=== PATIENT | male | born 1945 | race Caucasian/White ===

== ENCOUNTER 2018-06-18 07:19 | Day surgery (SDC) | payer OTHER ==
[2018-06-18] MEDS ORDERED: INFLIXIMAB DYYB IV ONE (08:00)
[2018-06-18] MEDS ORDERED: NA CHLORIDE 0.9% IV ONE (08:00)
[2018-06-18] MEDS ORDERED: NA CHLORIDE 0.9% 250 ML ONE (08:03)
[2018-06-18 08:11] VITALS: BMI 29.6
[2018-06-18 10:10] VITALS: O2SAT 98
[2018-06-18 10:46] VITALS: BP 140/67; TEMP 98.6
== END 2018-06-18 10:45 | disposition home or self-care (01) ==
LOC: DS 07:19
PROVIDERS: ATTEND Internal Medicine Gastroenterology
DX: K50.911 Crohn's disease, unspecified, with rectal bleeding (principal)
CPT/HCPCS: 96365; 96366; Q5103

== ENCOUNTER 2018-08-11 07:22 | Day surgery (SDC) | payer OTHER ==
[2018-08-11] MEDS ORDERED: NA CHLORIDE 0.9% IV ONE (08:30)
[2018-08-11] MEDS ORDERED: INFLIXIMAB DYYB IV ONE (08:30)
[2018-08-11 08:43] VITALS: BP 145/67; TEMP 97.4; O2SAT 95; BMI 30.2
[2018-08-11] MEDS ORDERED: NA CHLORIDE 0.9% 250 ML ONE (09:04)
== END 2018-08-11 11:35 | disposition home or self-care (01) ==
LOC: DS 07:22
PROVIDERS: ATTEND Internal Medicine Gastroenterology
DX: K50.911 Crohn's disease, unspecified, with rectal bleeding (principal)
CPT/HCPCS: 96365; 96366; Q5103

== ENCOUNTER 2018-08-28 12:47 | Emergency (ER) | payer OTHER ==
[2018-08-28] MEDS ORDERED: ONDANSETRON 4 MG/2 ML VIAL ONE (13:10)
[2018-08-28] MEDS ORDERED: MORPHINE 4 MG/ML SYR ONE ×2 (13:10→14:35)
--- NOTE | 2018-08-28 14:28 | RAD REPORT ---
EXAM DESCRIPTION: RAD - Wrist Left 2 View - 08/28/2018 1:12 pm CLINICAL HISTORY: Left wrist pain status post injury FINDINGS: Limited 2 series obtained. Comminuted markedly displaced impacted fracture of the distal radius Cortical irregularity involves the pisiform which may indicate a fracture. Small bony density lies adjacent to scaphoid and trapezium which could represent small avulsion fract ure acute versus chronic
[2018-08-28] MEDS ORDERED: MORPHINE 2 MG/ML SYR ONE (14:35)
--- NOTE | 2018-08-28 15:14 | RAD REPORT ---
EXAM DESCRIPTION: RAD - Wrist Left 2 View - 08/28/2018 3:04 pm CLINICAL HISTORY: Radial fracture FINDINGS: Splint immobilizes previously described fractures of the left wrist
--- NOTE | 2018-08-28 15:51 | ER ---
Nurse's Notes [facility] Name: Felipe Ross Age: 72 yrs Sex: Male : 1945 Arrival Date: 08/28/2018 Time: 12:48 Bed 5 Private MD: Kenny Lora C Diagnosis: Left Distal radius, ulna communited closed fractures Presentation: 08/28 13:00 Presenting complaint: Patient states: fell from a standing position just prior to ss arrival. c/o L wrist pain. Obvious deformity noted. Care prior to arrival: None. Mechanism of Injury: Fall from standing position. Trauma event details: Injury occurred in the [facility], Injury occurred: at home. Injury occurred: August 28, 2018. 13:00 Acuity: SYDNEE 2 ss 13:00 Method Of Arrival: Wheelchair ss 13:14 Transition of care: patient was not received from another setting of care. Onset of jl7 symptoms was August 28, 2018. Risk Assessment: Do you want to hurt yourself or someone else? Patient reports no desire to harm self or others. Initial Sepsis Screen: Does the patient meet any 2 criteria? No. Patient's initial sepsis screen is negative. Does the patient have a suspected source of infection? No. Patient's initial sepsis screen is negative. Trauma Activation: Alert Physician: ED Physician; Name: ; Notified At: ; Arrived At: Physician: General Surgeon; Name: ; Notified At: ; Arrived At: Physician: Radiology; Name: ; Notified At: ; Arrived At: Physician: Respiratory; Name: ; Notified At: ; Arrived At: Physician: Lab; Name: ; Notified At: ; Arrived At: Historical: - Allergies: 13:19 Iodinated Contrast Media - IV Dye; jl7 - Home Meds: 13:19 acetaminophen-codeine 300-30 mg Oral tab every 4 hours [Active]; Actonel 150 mg Oral jl7 tab 1 tab once moly [Active]; Advair Diskus 250-50 mcg/dose Inhl dsdv 1 puff 2 times per day [Active]; azathioprine 50 mg Oral tab three times a day [Active]; benazepril 20 mg Oral tab 1 tab once daily [Active]; benazepril-hydrochlorothiazide 20-12.5 mg Oral tab 1 tab once daily [Active]; Colace 100 mg Oral cap [Active]; gabapentin 600 mg Oral tab twice a day [Active]; Lialda 1.2 gram Oral TbEC 2 tabs once daily [Active]; Remicade 100 mg intravenous solr every 8 wks [Active]; - PMHx: 13:19 Asthma; Atrial Fib; Chronic back/leg pain; herniated discs; Hypertension; Left atrium jl7 enlargement; Mitral Valve Regurgitation; - Immunization history:: Adult Immunizations up to date. - Social history:: Smoking status: Patient/guardian denies using tobacco. - Immunization history: Last tetanus immunization: < 5 years ago. - Ebola Screening: : No symptoms or risks identified at this time. Screenin:48 Abuse screen: Denies threats or abuse. Denies injuries from another. ss 13:12 Tuberculosis screening: No symptoms or risk factors identified. jl7 13:29 Nutritional screening: No deficits noted. Fall Risk IV access (20 points). Total Marsh jl7 Fall Scale indicates No Risk (0-24 pts). Primary Survey: 13:00 NO uncontrolled hemorrhage observed. A: The patient is alert. Airway: patent, No ss supplemental oxygen in use on arrival. Oral cavity: clear, Trachea midline. Breathing/Chest: Respiratory pattern: regular, Respiratory effort: spontaneous, unlabored, Breath sounds: clear, bilaterally. Chest inspection: symmetrical rise and fall of the chest. Circulation: Pulses: palpable right radial artery and left radial artery. Skin color: pink. Disability Alert. Exposure/Environment: There is no evidence of uncontrolled external bleeding. Obvious injury(ies) are noted at this time: L wrist. Obvious deformity. 13:12 Reassessment Breathing/Chest Respiratory pattern Regular Respiratory effort Spontaneous jl7 Unlabored Breath sounds Clear Chest inspection Symmetrical. Assessment: 13:00 General: Appears in no apparent distress. uncomfortable, Behavior is cooperative, jl7 appropriate for age, anxious, crying. Pain: Complains of pain in left wrist Pain currently is 10 out of 10 on a pain scale. Neuro: Level of Consciousness is awake, alert, obeys commands, Oriented to person, place, time, situation. EENT: No signs and/or symptoms were reported regarding the EENT system. Cardiovascular: Heart tones S1 S2 present Patient's skin is warm and dry. Respiratory: Airway is patent Respiratory effort is even, unlabored, Respiratory pattern is regular, symmetrical. GI: No signs and/or symptoms were reported involving the gastrointestinal system. : No signs and/or symptoms were reported regarding the genitourinary system. Derm: Skin is pink, warm \\T\\ dry. Musculoskeletal: Bony deformity noted of left wrist. 14:00 Reassessment: Patient appears in no apparent distress at this time. Patient and/or jl7 family updated on plan of care and expected duration. Pain level reassessed. Patient is alert, oriented x 3, equal unlabored respirations, skin warm/dry/pink. 14:47 Reassessment: Dr. Bocanegra at bedside to reduce dislocation/ fracture and place splint. ss 15:30 Reassessment: Patient appears in no apparent distress at this time. Patient and/or jl7 family updated on plan of care and expected duration. Pain level reassessed. Patient is alert, oriented x 3, equal unlabored respirations, skin warm/dry/pink. Reports decreased pain rated 3/10 at this time. Patient states feeling better. Vital Signs: 12:48 BP 116 / 84; Pulse 79; Resp 18; Pulse Ox 98% on R/A; Weight 121.56 kg; Height 6 ft. 8 ss in. (203.20 cm); Pain 10/10; 13:30 BP 143 / 78; Pulse 75; Resp 16 S; Pulse Ox 100% on R/A; jl7 14:30 BP 140 / 79; Pulse 74; Resp 16 S; Pulse Ox 100% on R/A; jl7 15:47 BP 150 / 84; Pulse 76; Resp 16 S; Pulse Ox 100% on R/A; jl7 12:48 Body Mass Index 29.44 (121.56 kg, 203.20 cm) [place] Coma Score: 12:48 Eye Response: spontaneous(4). Verbal Response: oriented(5). Motor Response: obeys ss commands(6). Total: 15. 13:30 Eye Response: spontaneous(4). Verbal Response: oriented(5). Motor Response: obeys jl7 commands(6). Total: 15. 14:30 Eye Response: spontaneous(4). Verbal Response: oriented(5). Motor Response: obeys jl7 commands(6). Total: 15. 15:47 Eye Response: spontaneous(4). Verbal Response: oriented(5). Motor Response: obeys jl7 commands(6). Total: 15. Trauma Score (Adult): 12:48 Eye Response: spontaneous(1); Verbal Response: oriented(1); Motor Response: obeys ss commands(2); Systolic BP: > 89 mm Hg(4); Respiratory Rate: 10 to 29 per min(4); [place] Score: 15; Trauma Score: 12 ED Course: 12:48 Patient arrived in ED. as 12:48 Kenny Lora MD is Private Physician. as 12:48 Patient has correct armband on for positive identification. Bed in low position. Call ss light in reach. 12:48 Patient maintains SpO2 saturation greater than 95% on room air. ss 12:51 Bereket Bocanegra MD is Attending Physician. kdr 13:00 chair and couch maker on. Pulse ox on. NIBP on. jl7 13:00 Inserted saline lock: 22 gauge in right antecubital area, using aseptic technique. jl7 13:02 Triage completed. ss 13:04 Shelton Zapata RN is Primary Nurse. jl7 13:12 Wrist Left 2 View In Process Unspecified. EDMS 13:12 Thermoregulation: warm blanket given to patient. jl7 13:19 Arm band placed on right wrist. jl7 15:01 Wrist Left (2 View) XRAY In Process Unspecified. EDMS 15:48 Leobardo Pierson MD is Referral Physician. kdr 16:04 No provider procedures requiring assistance completed. IV discontinued, intact, jl7 bleeding controlled, No redness/swelling at site. Pressure dressing applied. Administered Medications: 13:04 Drug: morphine 4 mg Route: IVP; Site: right antecubital; jl7 13:30 Follow up: Response: No adverse reaction; Pain is decreased jl7 13:04 Drug: Zofran 4 mg Route: IVP; Site: right antecubital; jl7 13:30 Follow up: Response: No adverse reaction jl7 13:32 Not Given (pt reports "I had a tetanus shot less than 5 years ago."): jl7 Tetanus-Diphtheria Toxoid Adult 0.5 ml IM once 14:30 Drug: morphine 4 mg Route: IVP; Site: right antecubital; jl7 14:35 Follow up: Response: No adverse reaction; Pain is decreased jl7 14:45 Drug: morphine 4 mg Route: IVP; Site: right antecubital; jl7 15:46 Follow up: Response: No adverse reaction; Pain is decreased jl7 15:50 Drug: [place] 10 mg-325 mg 1 tabs Route: PO; jl7 16:03 Follow up: Response: Medication administered at discharge. jl7 Intake: 16:04 PO: 0ml; Total: 0ml. jl7 Output: 16:04 Urine: 0ml; Total: 0ml. jl7 Outcome: 15:50 Discharge ordered by . ace 16:03 Discharged to home ambulatory, with family. jl7 16:03 Condition: stable 16:03 Patient's length of stay was not longer than 2 hours. 16:05 Discharge instructions given to patient, family, Instructed on discharge instructions, jl7 follow up and referral plans. medication usage, Demonstrated understanding of instructions, follow-up care, medications, Prescriptions given X 1. 16:05 Patient left the ED. jl7 Signatures: Dispatcher [employer] EDMS Bereket Bocanegra MD MD kdr Martinez, Amelia as Smirch, Shelby, KWAN BOWENS Shelton Zapata RN RN jl7
--- NOTE | 2018-08-28 15:51 | EDPHYS ---
Physician Documentation [facility] Name: Felipe Ross Age: 72 yrs Sex: Male : 1945 Arrival Date: 08/28/2018 Time: 12:48 Bed 5 Private MD: Kenny Lora C ED Physician Bereket Bocanegra HPI: 08/28 15:43 This 72 yrs old Male presents to ER via Wheelchair with complaints of Fall kdr Injury. 15:43 Details of fall: The patient fell from an upright position, while walking. Onset: The kdr symptoms/episode began/occurred acutely, suddenly, just prior to arrival. Associated injuries: The patient sustained left wrist, decreased range of motion, hematoma, painful injury, swelling. Severity of symptoms: At their worst the symptoms were moderate, in the emergency department the symptoms are unchanged. The patient has not experienced similar symptoms in the past. The patient has not recently seen a physician. The patient tripped and fell on left outstretched arm. No other injuries. Historical: - Allergies: 13:19 Iodinated Contrast Media - IV Dye; jl7 - Home Meds: 13:19 acetaminophen-codeine 300-30 mg Oral tab every 4 hours [Active]; Actonel 150 mg Oral jl7 tab 1 tab once moly [Active]; Advair Diskus 250-50 mcg/dose Inhl dsdv 1 puff 2 times per day [Active]; azathioprine 50 mg Oral tab three times a day [Active]; benazepril 20 mg Oral tab 1 tab once daily [Active]; benazepril-hydrochlorothiazide 20-12.5 mg Oral tab 1 tab once daily [Active]; Colace 100 mg Oral cap [Active]; gabapentin 600 mg Oral tab twice a day [Active]; Lialda 1.2 gram Oral TbEC 2 tabs once daily [Active]; Remicade 100 mg intravenous solr every 8 wks [Active]; - PMHx: 13:19 Asthma; Atrial Fib; Chronic back/leg pain; herniated discs; Hypertension; Left atrium jl7 enlargement; Mitral Valve Regurgitation; - Immunization history:: Adult Immunizations up to date. - Social history:: Smoking status: Patient/guardian denies using tobacco. - Immunization history: Last tetanus immunization: < 5 years ago. - Ebola Screening: : No symptoms or risks identified at this time. ROS: 15:43 Constitutional: Negative for fever, chills, and weight loss. kdr 15:43 MS/extremity: Positive for injury or acute deformity, decreased range of motion, pain, swelling, tenderness, Negative for abrasion, laceration. Exam: 15:43 Constitutional: This is a well developed, well nourished patient who is awake, alert, kdr and in no acute distress. Head/Face: Normocephalic, atraumatic. Eyes: Pupils equal round and reactive to light, extra-ocular motions intact. Lids and lashes normal. Conjunctiva and sclera are non-icteric and not injected. Cornea within normal limits. Periorbital areas with no swelling, redness, or edema. Chest/axilla: Normal chest wall appearance and motion. Nontender with no deformity. No lesions are appreciated. Cardiovascular: Regular rate and rhythm with a normal S1 and S2. No gallops, murmurs, or rubs. Normal PMI, no JVD. No pulse deficits. 15:43 Musculoskeletal/extremity: Extremities: grossly normal except: noted in the left wrist: decreased ROM, pain, swelling, tenderness, mild dorsal angulation, Circulation is intact in all extremities. Sensation intact. Vital Signs: 12:48 BP 116 / 84; Pulse 79; Resp 18; Pulse Ox 98% on R/A; Weight 121.56 kg; Height 6 ft. 8 ss in. (203.20 cm); Pain 10/10; 13:30 BP 143 / 78; Pulse 75; Resp 16 S; Pulse Ox 100% on R/A; jl7 14:30 BP 140 / 79; Pulse 74; Resp 16 S; Pulse Ox 100% on R/A; jl7 15:47 BP 150 / 84; Pulse 76; Resp 16 S; Pulse Ox 100% on R/A; jl7 12:48 Body Mass Index 29.44 (121.56 kg, 203.20 cm) [place] Coma Score: 12:48 Eye Response: spontaneous(4). Verbal Response: oriented(5). Motor Response: obeys commands(6). Total: 15. 13:30 Eye Response: spontaneous(4). Verbal Response: oriented(5). Motor Response: obeys jl7 commands(6). Total: 15. 14:30 Eye Response: spontaneous(4). Verbal Response: oriented(5). Motor Response: obeys jl7 commands(6). Total: 15. 15:47 Eye Response: spontaneous(4). Verbal Response: oriented(5). Motor Response: obeys jl7 commands(6). Total: 15. Trauma Score (Adult): 12:48 Eye Response: spontaneous(1); Verbal Response: oriented(1); Motor Response: obeys ss commands(2); Systolic BP: > 89 mm Hg(4); Respiratory Rate: 10 to 29 per min(4); [place] Score: 15; Trauma Score: 12 Procedures: 15:43 Splinting: Splint applied to dorsal aspect of left forearm, left wrist and palmar kdr aspect of left forearm using Orthoglass splint, sling, applied by myself. post reduction film - reveals improved alignment, Examined by me, post splint application: neurovascular intact, 2+ distal pulses palpable, brisk capillary refill noted, Patient tolerated well, Sugar tong splint. MDM: 15:43 Data reviewed: vital signs, nurses notes, radiologic studies. Counseling: I had a kdr detailed discussion with the patient and/or guardian regarding: the historical points, exam findings, and any diagnostic results supporting the discharge/admit diagnosis, radiology results, the need for outpatient follow up. Physician consultation: Leobardo Pierson MD and will see patient in office, Make best reduction, splint and follow-up. 15:50 Patient medically screened. [facility] 08/28 13:12 Order name: Wrist Left 2 View; Complete Time: 14:52 EDGA 08/28 14:52 Order name: Wrist Left (2 View) XRAY; Complete Time: 15:42 kdr 08/28 12:56 Order name: Sugar Tong Forearm Splint; Complete Time: 15:44 kdr Administered Medications: 13:04 Drug: morphine 4 mg Route: IVP; Site: right antecubital; jl7 13:30 Follow up: Response: No adverse reaction; Pain is decreased jl7 13:04 Drug: Zofran 4 mg Route: IVP; Site: right antecubital; jl7 13:30 Follow up: Response: No adverse reaction jl7 13:32 Not Given (pt reports "I had a tetanus shot less than 5 years ago."): jl7 Tetanus-Diphtheria Toxoid Adult 0.5 ml IM once 14:30 Drug: morphine 4 mg Route: IVP; Site: right antecubital; jl7 14:35 Follow up: Response: No adverse reaction; Pain is decreased jl7 14:45 Drug: morphine 4 mg Route: IVP; Site: right antecubital; jl7 15:46 Follow up: Response: No adverse reaction; Pain is decreased jl7 15:50 Drug: [place] 10 mg-325 mg 1 tabs Route: PO; jl7 16:03 Follow up: Response: Medication administered at discharge. 7 Disposition: 08/28/18 15:50 Discharged to Home. Impression: Left Distal radius, ulna communited closed fractures. - Condition is Stable. - Discharge Instructions: Wrist Fracture Treated With Immobilization, [id number]. - Prescriptions for Tylenol- Codeine #3 300-30 mg Oral Tablet - take 2 tablets by ORAL route every 6 hours As needed; 30 tablet. - Medication Reconciliation Form, Thank You Letter, Prescription Opioid Use form. - Follow up: Leobardo Pierson MD; When: 2 - 3 days; Reason: Further diagnostic work-up, Recheck today's complaints, Continuance of care, Re-evaluation by your physician. - Problem is new. - Symptoms have improved. Signatures: Dispatcher [employer] [facility] Bereket Bocanegra MD MD kdr Leal, Jahala, RN RN jl7 Corrections: (The following items were deleted from the chart) 13:12 12:57 Wrist Left 3 View+RAD.[id number].BRZ ordered. [facility] 16:05 15:50 08/28/2018 15:50 Discharged to Home. Impression: Left Distal radius, ulna jl7 communited closed fractures. Condition is Stable. Forms are Medication Reconciliation Form, Thank You Letter, Antibiotic Education, Prescription Opioid Use. Follow up: Leobardo Pierson; When: 2 - 3 days; Reason: Further diagnostic work-up, Recheck today's complaints, Continuance of care, Re-evaluation by your physician. Problem is new. Symptoms have improved. kdr
[2018-08-28] MEDS ORDERED: HYDROCODONE/APAP 10/325 TAB ONE (16:00)
[2018-08-28 16:17] VITALS: O2SAT 100
[2018-08-28 16:19] VITALS: BP 150/84
== END 2018-08-28 16:05 | disposition home or self-care (01) ==
LOC: ER 12:47
PROC: 2W3DX1Z Immobilization of Left Lower Arm using Splint (ICD-10-PCS; principal; 2018-08-28)
DX: S52.592A Other fractures of lower end of left radius, initial encounter for closed fracture (principal); S52.252A Displaced comminuted fracture of shaft of ulna, left arm, initial encounter for closed fracture; W01.0XXA Fall on same level from slipping, tripping and stumbling without subsequent striking against object, initial encounter; Y93.01 Activity, walking, marching and hiking; M25.532 Pain in left wrist; J45.909 Unspecified asthma, uncomplicated; I48.91 Unspecified atrial fibrillation; I10 Essential (primary) hypertension
CPT/HCPCS: 73100 ×2; 96375; 96374; 99285; 29125; J2270; J2405

== ENCOUNTER 2018-09-26 07:27 | Day surgery (SDC) | payer OTHER ==
--- OUTSIDE RECORDS SUMMARY | 2018-09-26 07:28 | XMS REPORT ---
:1945 [facility] Address [address] [place] [address] Dr. Bateman [address] [place] [id number] Care Team Providers Name Role Phone Unavailable Unavailable Unavailable Problems This patient has no known problems. Allergies, Adverse Reactions, Alerts This patient has no known allergies or adverse reactions. Medications This patient has no known medications.
[2018-09-26] MEDS ORDERED: NA CHLORIDE 0.9% IV ONE (08:00)
[2018-09-26] MEDS ORDERED: INFLIXIMAB DYYB IV ONE (08:00)
[2018-09-26 08:36] VITALS: BMI 29.6
[2018-09-26 13:27] VITALS: BP 142/55; TEMP 97.8; O2SAT 95
== END 2018-09-26 10:45 | disposition home or self-care (01) ==
LOC: DS 07:27
PROVIDERS: ATTEND Internal Medicine Gastroenterology
DX: K50.911 Crohn's disease, unspecified, with rectal bleeding (principal)
CPT/HCPCS: 96365; 96366; Q5103

== ENCOUNTER 2018-11-13 19:13 | Emergency (ER) | payer OTHER ==
--- OUTSIDE RECORDS SUMMARY | 2018-11-13 19:15 | XMS REPORT ---
:1945 [facility] [address] [place] [address] Dr. Bateman [address] [place] [id number] Care Team Providers Name Role Phone Unavailable Unavailable Unavailable Problems This patient has no known problems. Allergies, Adverse Reactions, Alerts This patient has no known allergies or adverse reactions. Medications This patient has no known medications.
[2018-11-13 20:26] LABS: Absolute Lymphocytes (CBC) 2.3 K/uL (0.7-4.9); Absolute Monocytes 0.8 K/uL (0.1-1.3); Absolute Neutrophil 3.9 K/uL (1.8-8.0); Basophils % 0.6 % (0-1.3); Eosinophils % 4.6 % (0-4.4); Hematocrit 34.9 % (39.6-49.0); Lymphocytes % 31.5 % (15.3-44.8); MPV 7.9 fL (7.6-11.3); Monocytes % 10.2 % (3.3-12.3); RBC Red Blood Cell Count 3.62 M/uL (4.33-5.43)
[2018-11-13 20:35] LABS: ALT/SGPT 34 U/L (12-78); AST/SGOT 28 U/L (15-37); Albumin 3.6 g/dL (3.4-5.0); Alkaline Phosphatase 67 U/L (45-117); BUN Blood Urea Nitrogen 24 mg/dL (7-18); Bicarbonate 27 mmol/L (21-32); Bilirubin Direct < 0.1 mg/dL (0-0.2); Bilirubin Total 0.3 mg/dL (0.2-1.0); Glucose Level 98 mg/dL (74-106); Magnesium 2.4 mg/dL (1.8-2.4); NT PRO-BNP 183 pg/mL (<125); Potassium 3.6 mmol/L (3.5-5.1); Protein, Total 7.3 g/dL (6.4-8.2); Sodium Level 142 mmol/L (136-145); Troponin (Emerg Dept Use Only) < 0.02 ng/mL (0.0-0.045)
--- NOTE | 2018-11-13 20:44 | RAD REPORT ---
EXAM DESCRIPTION: RAD - Chest Single View - 11/13/2018 8:34 pm CLINICAL HISTORY: CHEST PAIN Chest pain. COMPARISON: Chest Pa And Lat (2 Views) dated 06/11/2018; Chest Single View dated 11/07/2016; Chest Pa An d Lat (2 Views) dated 11/05/2016; CHEST PA AND LAT 2 VIEW dated 04/07/2013 FINDINGS: Portable technique limits examination quality. Emphysematous changes are present with mildly elevated left hemidiaphragm. The heart is normal in siz e. Tortuous thoracic aorta. IMPRESSION: Prominent COPD.
[2018-11-13 20:46] LABS: Protime INR 0.92
--- NOTE | 2018-11-14 00:25 | ER ---
Nurse's Notes [facility] Name: Felipe Ross Age: 73 yrs Sex: Male : 1945 Arrival Date: 11/13/2018 Time: 19:18 Bed 30 Private MD: Kenny Lora C Diagnosis: Chest pain, unspecified Presentation: 11/13 19:30 Presenting complaint: Patient states: "I started to have a sharp chest pain mostly on cc3 the right side at 1830H tonight while watching television. I also feel a lump on my central chest area. I've been having this intermittent chest pain since 3-4 weeks now. Currently, I don't feel pain". Transition of care: patient was not received from another setting of care. Onset of symptoms was November 13, 2018. Risk Assessment: Do you want to hurt yourself or someone else? Patient reports no desire to harm self or others. Initial Sepsis Screen: Does the patient meet any 2 criteria? No. Patient's initial sepsis screen is negative. Does the patient have a suspected source of infection? No. Patient's initial sepsis screen is negative. Care prior to arrival: None. 19:30 Method Of Arrival: Wheelchair cc3 19:30 Acuity: SYDNEE 3 cc3 Triage Assessment: 19:30 General: Appears in no apparent distress. comfortable, Behavior is calm, cooperative, cc3 appropriate for age. Pain: Complains of pain in right side chest pain Pain currently is 0 out of 10 on a pain scale. Quality of pain is described as sharp, Pain began 1 hour ago. EENT: No signs and/or symptoms were reported regarding the EENT system. Neuro: Level of Consciousness is awake, alert, obeys commands, Oriented to person, place, time, situation, Appropriate for age. Cardiovascular: Reports chest pain, since 1830H tonight Patient's skin is warm and dry. Respiratory: Airway is patent Respiratory effort is even, unlabored, Respiratory pattern is regular, symmetrical. GI: Abdomen is round non-distended. : No signs and/or symptoms were reported regarding the genitourinary system. Derm: Skin is intact, is healthy with good turgor, Skin is pink, warm \\T\\ dry. normal. Musculoskeletal: Swelling present in left wrist. Historical: - Allergies: 19:30 Iodinated Contrast Media - IV Dye; cc3 - Home Meds: 19:30 acetaminophen-codeine 300-30 mg Oral tab every 4 hours [Active]; Actonel 150 mg Oral cc3 tab 1 tab once moly [Active]; Advair Diskus 250-50 mcg/dose Inhl dsdv 1 puff 2 times per day [Active]; azathioprine 50 mg Oral tab three times a day [Active]; benazepril 20 mg Oral tab 1 tab once daily [Active]; benazepril-hydrochlorothiazide 20-12.5 mg Oral tab 1 tab once daily [Active]; Colace 100 mg Oral cap [Active]; gabapentin 600 mg Oral tab twice a day [Active]; Lialda 1.2 gram Oral TbEC 2 tabs once daily [Active]; Remicade 100 mg intravenous solr every 8 wks [Active]; - PMHx: 19:30 Asthma; Atrial Fib; Chronic back/leg pain; herniated discs; Hypertension; Left atrium cc3 enlargement; Mitral Valve Regurgitation; - Immunization history:: Adult Immunizations up to date. - Social history:: Smoking status: Patient/guardian denies using tobacco, never smoked. - Ebola Screening: : No symptoms or risks identified at this time. Screenin:30 Abuse screen: Denies threats or abuse. Denies injuries from another. Nutritional cc3 screening: No deficits noted. Tuberculosis screening: No symptoms or risk factors identified. Fall Risk Ambulatory Aid- None/Bed Rest/Nurse Assist (0 pts). Gait- Normal/Bed Rest/Wheelchair (0 pts) Mental Status- Oriented to own ability (0 pts). Assessment: 19:30 Pain: Pain does not radiate. cc3 19:30 General: see triage assessment. cc3 20:18 Reassessment: Patient appears in no apparent distress at this time. Patient and/or cc3 family updated on plan of care and expected duration. Pain level reassessed. Patient is alert, oriented x 3, equal unlabored respirations, skin warm/dry/pink. 21:05 Reassessment: Patient appears in no apparent distress at this time. Patient and/or cc3 family updated on plan of care and expected duration. Pain level reassessed. Patient is alert, oriented x 3, equal unlabored respirations, skin warm/dry/pink. Patient taken to CT department by live truck technician Daryl. 21:26 Reassessment: Patient appears in no apparent distress at this time. Patient and/or cc3 family updated on plan of care and expected duration. Pain level reassessed. Patient is alert, oriented x 3, equal unlabored respirations, skin warm/dry/pink. Patient came back from CT scan department, awaiting result. 22:18 Reassessment: Patient appears in no apparent distress at this time. Patient and/or cc3 family updated on plan of care and expected duration. Pain level reassessed. Patient is alert, oriented x 3, equal unlabored respirations, skin warm/dry/pink. 23:25 Reassessment: Patient appears in no apparent distress at this time. Patient and/or cc3 family updated on plan of care and expected duration. Pain level reassessed. Patient is alert, oriented x 3, equal unlabored respirations, skin warm/dry/pink. 11/14 00:10 Reassessment: Patient appears in no apparent distress at this time. Patient is alert, ca1 oriented x 3, equal unlabored respirations, skin warm/dry/pink. Repeat Trop drawn and sent to Lab. Vital Signs: 11/13 19:30 BP 154 / 76; Pulse 65; Resp 18 S; Temp 98.3(O); Pulse Ox 99% on R/A; Weight 124.74 kg cc3 (R); Height 6 ft. 8 in. (203.20 cm) (R); Pain 0/10; 20:30 BP 149 / 77; Pulse 56; Resp 18 S; Pulse Ox 99% on R/A; cc3 21:23 BP 139 / 82; Pulse 63; Resp 18 S; Pulse Ox 98% on R/A; cc3 22:15 BP 136 / 74; Pulse 54; Resp 17 S; Pulse Ox 96% on R/A; cc3 23:45 BP 140 / 82; Pulse 62; Resp 19 S; Pulse Ox 97% on R/A; cc3 11/14 00:21 BP 150 / 81; Pulse 53; Resp 16 S; Temp 98(O); Pulse Ox 98% on R/A; ca1 11/13 19:30 Body Mass Index 30.21 (124.74 kg, 203.20 cm) [facility] ED Course: 11/13 19:18 Patient arrived in ED. am2 19:18 Lora, A, MD is Private Physician. am2 19:30 Arm band placed on right wrist. Patient notified of wait time. EKG completed in triage. cc3 Results shown to MD. 19:33 Shannan Garcia is Primary Nurse. cc3 19:38 Triage completed. cc3 19:39 Estevan James MD is Attending Physician. gs 19:41 No provider procedures requiring assistance completed. Inserted saline lock: 20 gauge ca1 in right antecubital area, using aseptic technique. Blood collected. Patient maintains SpO2 saturation greater than 95% on room air. 19:42 Patient has correct armband on for positive identification. Placed in gown. Bed in low ca1 position. Call light in reach. Side rails up X 1. bus driver/monitor on. Pulse ox on. NIBP on. Warm blanket given. 20:34 XRAY Chest (1 view) In Process Unspecified. EDMS 21:28 CT Chest Wo Con In Process Unspecified. EDMS 11/14 00:00 Report given to KWAN Conley. cc3 00:10 Yael Gomez RN is Primary Nurse. ca1 00:22 Aniket Morales MD is Referral Physician. gs 00:31 IV discontinued, intact, bleeding controlled, No redness/swelling at site. Pressure ca1 dressing applied. Administered Medications: No medications were administered Outcome: 00:22 Discharge ordered by . gs 00:31 Discharged to home ambulatory, with significant other. ca1 00:31 Condition: stable 00:31 Discharge instructions given to patient, Instructed on discharge instructions, follow up and referral plans. Demonstrated understanding of instructions, follow-up care. 00:31 Patient left the ED. ca1 Signatures: Dispatcher [employer] EDAZ Krystal Pham am2 Estevan James MD MD Shannan Garcia cc3 Yael Gomez, KWAN RN ca1 Corrections: (The following items were deleted from the chart) 11/13 19:40 19:30 BP 154 / 76; Pulse 65bpm; Resp 18bpm; Spontaneous; Pulse Ox 99% RA; Temp 98.3F cc3 Oral; 124.74 kg Reported; Height 6 ft. 8 in. Reported; BMI: 30.2; cc3 19:41 19:30 Presenting complaint: Patient states: "I started to have a sharp chest pain cc3 mostly on the right side at 1830H tonight while watching television. I also feel a lump on my central chest area. I've been having this intermittent chest pain since 3-4 weeks now" cc3
--- NOTE | 2018-11-14 00:26 | EDPHYS ---
Physician Documentation [facility] Name: Felipe Ross Age: 73 yrs Sex: Male : 1945 Arrival Date: 11/13/2018 Time: 19:18 Bed 30 Private MD: Kenny Lora C ED Physician Estevan James HPI: 11/14 00:49 This 73 yrs old Male presents to ER via Wheelchair with complaints of Chest gs Pain > 30 y/o. 00:49 The patient or guardian reports chest pain that is located primarily in the anterior gs chest wall, right. Onset: yesterday. Associated signs and symptoms: Pertinent negatives: abdominal pain, diaphoresis, dizziness, shortness of breath. The chest pain is described as a heaviness. Duration: The patient or guardian reports a single episode, that is still ongoing, but improving. Duration: The patient or guardian reports multiple episodes, that wax and wane, with no pattern, the episodes last approximately 15 minute(s). Modifying factors: The symptoms are alleviated by nothing. the symptoms are aggravated by nothing. Severity of pain: At its worst the pain was moderate in the emergency department the pain has improved markedly. The patient has experienced similar episodes in the past, a few times, and the symptoms today are exactly the same, started about a month ago. Historical: - Allergies: 11/13 19:30 Iodinated Contrast Media - IV Dye; cc3 - Home Meds: 19:30 acetaminophen-codeine 300-30 mg Oral tab every 4 hours [Active]; Actonel 150 mg Oral cc3 tab 1 tab once moly [Active]; Advair Diskus 250-50 mcg/dose Inhl dsdv 1 puff 2 times per day [Active]; azathioprine 50 mg Oral tab three times a day [Active]; benazepril 20 mg Oral tab 1 tab once daily [Active]; benazepril-hydrochlorothiazide 20-12.5 mg Oral tab 1 tab once daily [Active]; Colace 100 mg Oral cap [Active]; gabapentin 600 mg Oral tab twice a day [Active]; Lialda 1.2 gram Oral TbEC 2 tabs once daily [Active]; Remicade 100 mg intravenous solr every 8 wks [Active]; - PMHx: 19:30 Asthma; Atrial Fib; Chronic back/leg pain; herniated discs; Hypertension; Left atrium cc3 enlargement; Mitral Valve Regurgitation; - Immunization history:: Adult Immunizations up to date. - Social history:: Smoking status: Patient/guardian denies using tobacco, never smoked. - Ebola Screening: : No symptoms or risks identified at this time. ROS: 11/14 00:49 All other systems are negative. gs Exam: 00:49 Head/Face: Normocephalic, atraumatic. Eyes: Pupils equal round and reactive to light, gs extra-ocular motions intact. Lids and lashes normal. Conjunctiva and sclera are non-icteric and not injected. Cornea within normal limits. Periorbital areas with no swelling, redness, or edema. ENT: Nares patent. No nasal discharge, no septal abnormalities noted. Tympanic membranes are normal and external auditory canals are clear. Oropharynx with no redness, swelling, or masses, exudates, or evidence of obstruction, uvula midline. Mucous membranes moist. Neck: Trachea midline, no thyromegaly or masses palpated, and no cervical lymphadenopathy. Supple, full range of motion without nuchal rigidity, or vertebral point tenderness. No Meningismus. Chest/axilla: Normal chest wall appearance and motion. Nontender with no deformity. No lesions are appreciated. Respiratory: Lungs have equal breath sounds bilaterally, clear to auscultation and percussion. No rales, rhonchi or wheezes noted. No increased work of breathing, no retractions or nasal flaring. Abdomen/GI: Soft, non-tender, with normal bowel sounds. No distension or tympany. No guarding or rebound. No evidence of tenderness throughout. Back: No spinal tenderness. No costovertebral tenderness. Full range of motion. Skin: Warm, dry with normal turgor. Normal color with no rashes, no lesions, and no evidence of cellulitis. MS/ Extremity: Pulses equal, no cyanosis. Neurovascular intact. Full, normal range of motion. Neuro: Awake and alert, GCS 15, oriented to person, place, time, and situation. Cranial nerves II-XII grossly intact. Motor strength 5/5 in all extremities. Sensory grossly intact. Cerebellar exam normal. Normal gait. 00:49 Constitutional: The patient appears alert, awake. 00:49 Cardiovascular: Rate: normal, Rhythm: regular, Pulses: no pulse deficits are appreciated, Edema: 2+ edema to level of left midcalf, left ankle, right midcalf and right ankle. 00:49 ECG was reviewed by the Attending Physician. Vital Signs: 11/13 19:30 BP 154 / 76; Pulse 65; Resp 18 S; Temp 98.3(O); Pulse Ox 99% on R/A; Weight 124.74 kg cc3 (R); Height 6 ft. 8 in. (203.20 cm) (R); Pain 0/10; 20:30 BP 149 / 77; Pulse 56; Resp 18 S; Pulse Ox 99% on R/A; cc3 21:23 BP 139 / 82; Pulse 63; Resp 18 S; Pulse Ox 98% on R/A; cc3 22:15 BP 136 / 74; Pulse 54; Resp 17 S; Pulse Ox 96% on R/A; cc3 23:45 BP 140 / 82; Pulse 62; Resp 19 S; Pulse Ox 97% on R/A; cc3 11/14 00:21 BP 150 / 81; Pulse 53; Resp 16 S; Temp 98(O); Pulse Ox 98% on R/A; ca1 11/13 19:30 Body Mass Index 30.21 (124.74 kg, 203.20 cm) cc3 MDM: 11/13 19:56 Patient medically screened. 11/14 00:49 Differential diagnosis: abnormal EKG, acute myocardial infarction, chest wall pain, gs thoracic aortic disection. Data reviewed: vital signs, nurses notes, lab test result(s), EKG, radiologic studies. Counseling: I had a detailed discussion with the patient and/or guardian regarding: the historical points, exam findings, and any diagnostic results supporting the discharge/admit diagnosis, lab results, radiology results, the need for outpatient follow up. Response to treatment: the patient's symptoms have resolved after treatment, the patient's pain is gone. 11/13 19:57 Order name: Basic Metabolic Panel; Complete Time: 20:51 11/13 19:57 Order name: CBC with Diff; Complete Time: 20:51 11/13 19:57 Order name: LFT's; Complete Time: 20:51 11/13 19:57 Order name: Magnesium; Complete Time: 20:51 11/13 19:57 Order name: NT PRO-BNP; Complete Time: 20:51 11/13 19:57 Order name: PT-INR; Complete Time: 20:51 11/13 19:57 Order name: Troponin (emerg Dept Use Only); Complete Time: 20:51 11/13 19:57 Order name: XRAY Chest (1 view); Complete Time: 20:51 11/13 19:57 Order name: EKG; Complete Time: 20:00 11/13 19:57 Order name: Cardiac monitoring; Complete Time: 20:05 11/13 19:57 Order name: EKG - Nurse/Tech; Complete Time: 20:05 11/13 19:57 Order name: IV Saline Lock; Complete Time: 20:05 11/13 20:53 Order name: CT Chest Wo Con 11/13 22:42 Order name: Troponin (emerg Dept Use Only) 11/13 19:57 Order name: Labs collected and sent; Complete Time: 20:05 11/13 19:57 Order name: O2 Per Protocol; Complete Time: 20:06 11/13 19:57 Order name: O2 Sat Monitoring; Complete Time: 20:06 EC:49 Rate is 64 beats/min. Rhythm is regular. NE interval is prolonged. QRS interval is gs normal. QT interval is normal. T waves are Normal. No ST changes noted. Clinical impression: Abnormal EKG without significant change. Interpreted by me. Administered Medications: No medications were administered Disposition: 11/14/18 00:22 Discharged to Home. Impression: Chest pain, unspecified. - Condition is Stable. - Discharge Instructions: Nonspecific Chest Pain. - Medication Reconciliation Form, Thank You Letter, Antibiotic Education, Prescription Opioid Use form. - Follow up: Private Physician; When: 1 - 2 days; Reason: Re-evaluation by your physician. Follow up: Aniket Morales MD; When: 2 - 3 days; Reason: Re-evaluation by your physician. Signatures: Dispatcher [employer] Estevan Underwood MD MD gs Cordel, Charlene cc3 Yael Gomez RN RN ca1 Corrections: (The following items were deleted from the chart) 00:31 00:22 11/14/2018 00:22 Discharged to Home. Impression: Chest pain, unspecified. ca1 Condition is Stable. Forms are Medication Reconciliation Form, Thank You Letter, Antibiotic Education, Prescription Opioid Use. Follow up: Private Physician; When: 1 - 2 days; Reason: Re-evaluation by your physician. Follow up: Aniket Morales; When: 2 - 3 days; Reason: Re-evaluation by your physician. gs
[2018-11-14 03:02] VITALS: BP 150/81; TEMP 98; O2SAT 98
--- NOTE | 2018-11-14 08:03 | EKG ---
Test Date: 2018-11-13 Test Time: 19:28:09 [employer] Cord: RAMESH MEASUREMENT RESULTS: Intervals: Rate: 64 MD: 238 QRSD: 90 QT: 412 QTc: 425 Valdez: P: 90 MD: 238 QRS: 53 T: 52 INTERPRETIVE STATEMENTS: Sinus rhythm with 1st degree AV block Otherwise normal ECG Compared to ECG 03/12/2017 23:10:23 Sinus bradycardia no longer present Right bundle-branch block no longer present Electronically Signed On 11-14-18 08:02:42 CDT by Aniket Morales
--- NOTE | 2018-11-14 09:03 | RAD REPORT ---
EXAM DESCRIPTION: CT - Thorax Wo Felix - 11/14/2018 2:52 am CLINICAL HISTORY: 73 years old and is Male; PAIN TECHNIQUE: Axial computed tomography images of the chest without intravenous contrast. Sagittal an d coronal reformatted images were created and reviewed. This CT exam was performed using one or mor e of the following dose reduction techniques: automated exposure control, adjustment of the mA and/ or kV according to patient size, and/or use of iterative reconstruction technique. COMPARISON: No relevant prior studies available. FINDINGS: Limitations: None. Lungs: There is a 4 mm groundglass nodule in the left upper lobe. There is a 5 mm noncalcified p ulmonary nodule in the right lower lobe. There is mild dependent atelectasis in both lower lobes left greater than right. Pleural space: Unremarkable. No pneumothorax. No significant effusion. Heart: Unremarkable. No cardiomegaly. No significant pericardial effusion. Bones/joints: Old left rib fractures. Degenerative changes present in the spine. Soft tissues: Unremarkable. Vasculature: Unremarkable. No thoracic aortic aneurysm. Lymph nodes: Unremarkable. No enlarged lymph nodes. Adrenals: Low-density 1.6 x 1.8 cm right adrenal nodule. Left appears normal. Kidneys and ureters: Small left parapelvic renal cysts noted. Stomach and bowel: Hyperdense material in the stomach presumably ingested contents. IMPRESSION: 1. Mild dependent atelectasis. 2. 5 mm right lower lobe pulmonary nodule and 4 mm left upper lobe groundglass pulmonary nodule. ACR White Paper guidelines (MacMahon, et al. Radiology 2017; 284(1):228-43) suggest the following. For low-risk patients, no follow-up is necessary. For high-risk patients (smoking history or other known risk factors) an optional chest CT at 12 months could be performed. 3. Low density right adrenal nodule. ACR White Paper guidelines (Farrah, et al. JACR 2010; 7(10) :755-22) suggest follow-up abdominal CT or MR in 12 months. Alternatively, if there is a history of malignancy, consider further evaluation with PET, unenhanced abdominal CT or MR. Electronically signed by: Elizabeth Alarcon MD 11/13/2018 9:43 PM CDT Due to temporary technical issues with the PACS/Fluency reporting system, reports are being signed by the in house radiologist as a courtesy to ensure prompt reporting. The interpreting radiologist is f ully responsible for the content of the report.
== END 2018-11-14 00:31 | disposition home or self-care (01) ==
LOC: ER 19:13
DX: R07.9 Chest pain, unspecified (principal); I10 Essential (primary) hypertension; I48.91 Unspecified atrial fibrillation; Z91.041 Radiographic dye allergy status
CPT/HCPCS: 36415; 71045; 71250; 80048; 80076; 83735; 83880; 84484; 85025; 85610; 93005; 99285

== ENCOUNTER 2018-11-20 08:54 | Day surgery (SDC) | payer OTHER ==
[2018-11-20] MEDS ORDERED: INFLIXIMAB DYYB IV ONE (09:00)
[2018-11-20] MEDS ORDERED: NA CHLORIDE 0.9% IV ONE (09:00)
--- OUTSIDE RECORDS SUMMARY | 2018-11-20 09:00 | XMS REPORT ---
:1945 [facility] Address [address] [place] [address] Dr. Bateman [address] [place] [id number] Care Team Providers Name Role Phone Unavailable Unavailable Unavailable Problems This patient has no known problems. Allergies, Adverse Reactions, Alerts This patient has no known allergies or adverse reactions. Medications This patient has no known medications.
[2018-11-20 13:50] VITALS: BP 118/56; TEMP 98.1; O2SAT 96
[2018-11-20 14:19] VITALS: BMI 34.3
== END 2018-11-20 11:59 | disposition home or self-care (01) ==
LOC: DS 08:54
PROVIDERS: ATTEND Internal Medicine Gastroenterology
DX: K50.911 Crohn's disease, unspecified, with rectal bleeding (principal)
CPT/HCPCS: 96365; 96366; Q5103

== ENCOUNTER 2019-01-27 07:50 | Day surgery (SDC) | payer OTHER ==
[2019-01-27] MEDS ORDERED: ACETAMINOPHEN 325 MG TABLET ONE (07:58)
[2019-01-27] MEDS ORDERED: DIPHENHYDRAMINE 25 MG TAB/CAP ONE (07:58)
[2019-01-27] MEDS ORDERED: INFLIXIMAB DYYB IV ONE (08:00)
[2019-01-27] MEDS ORDERED: NA CHLORIDE 0.9% IV ONE (08:00)
[2019-01-27] MEDS ORDERED: NA CHLORIDE 0.9% 250 ML ONE (08:10)
[2019-01-27 09:11] VITALS: BMI 29.1
[2019-01-27 11:26] VITALS: BP 139/72; TEMP 98.9; O2SAT 97
== END 2019-01-27 11:20 | disposition home or self-care (01) ==
LOC: DS 07:50
PROVIDERS: ATTEND Internal Medicine Gastroenterology
DX: K50.90 Crohn's disease, unspecified, without complications (principal)
CPT/HCPCS: 96365; 96366; Q5103

== ENCOUNTER 2019-03-26 08:16 | Day surgery (SDC) | payer OTHER ==
[2019-03-26] MEDS ORDERED: INFLIXIMAB DYYB IV ONE (09:00)
[2019-03-26] MEDS ORDERED: NA CHLORIDE 0.9% IV ONE (09:00)
[2019-03-26 09:36] VITALS: BMI 29.1
[2019-03-26 11:07] VITALS: BP 129/65; TEMP 97.5; O2SAT 98
== END 2019-03-26 11:11 | disposition home or self-care (01) ==
LOC: DS 08:16
PROVIDERS: ATTEND Internal Medicine Gastroenterology
DX: K50.911 Crohn's disease, unspecified, with rectal bleeding (principal)
CPT/HCPCS: 96365; 96366; Q5103; J7030

== ENCOUNTER 2019-05-20 07:47 | Day surgery (SDC) | payer OTHER ==
--- OUTSIDE RECORDS SUMMARY | 2019-05-20 07:53 | XMS REPORT ---
:1945 [facility] Address [address] [place] [address] Dr. Bateman [address] [place] [id number] Care Team Providers Name Role Phone Unavailable Unavailable Unavailable Problems This patient has no known problems. Allergies, Adverse Reactions, Alerts This patient has no known allergies or adverse reactions. Medications This patient has no known medications.
[2019-05-20] MEDS ORDERED: INFLIXIMAB DYYB IV ONE (08:00)
[2019-05-20] MEDS ORDERED: NA CHLORIDE 0.9% IV ONE (08:00)
[2019-05-20] MEDS ORDERED: NA CHLORIDE 0.9% 250 ML ONE (08:08)
[2019-05-20 10:43] VITALS: TEMP 97.1
[2019-05-20 15:29] VITALS: BMI 27.4
[2019-05-20 15:32] VITALS: BP 138/74; O2SAT 98
== END 2019-05-20 11:30 | disposition home or self-care (01) ==
LOC: DS 07:47
PROVIDERS: ATTEND Internal Medicine Gastroenterology
DX: K50.911 Crohn's disease, unspecified, with rectal bleeding (principal)
CPT/HCPCS: 96365; 96366; Q5103; J7030 ×2

== ENCOUNTER 2019-07-03 08:52 | Day surgery (SDC) | payer OTHER ==
--- OUTSIDE RECORDS SUMMARY | 2019-07-03 08:54 | XMS REPORT ---
:1945 [facility] Address [address] [place] [address] Dr. Bateman [address] [place] [id number] Care Team Providers Name Role Phone Unavailable Unavailable Unavailable Problems This patient has no known problems. Allergies, Adverse Reactions, Alerts This patient has no known allergies or adverse reactions. Medications This patient has no known medications.
[2019-07-03] MEDS ORDERED: INFLIXIMAB DYYB IV ONE (09:00)
[2019-07-03] MEDS ORDERED: NA CHLORIDE 0.9% IV ONE (09:00)
[2019-07-03] MEDS ORDERED: NA CHLORIDE 0.9% 250 ML ONE (09:06)
[2019-07-03 13:19] VITALS: BMI 34.3
[2019-07-03 13:34] VITALS: BP 115/79; TEMP 97.6; O2SAT 98
== END 2019-07-03 12:38 | disposition home or self-care (01) ==
LOC: DS 08:52
PROVIDERS: ATTEND Internal Medicine Gastroenterology
DX: K50.911 Crohn's disease, unspecified, with rectal bleeding (principal)
CPT/HCPCS: 96365; 96366; Q5103; J7030 ×2

== ENCOUNTER 2019-09-25 08:45 | Day surgery (SDC) | payer OTHER ==
--- OUTSIDE RECORDS SUMMARY | 2019-09-25 09:12 | XMS REPORT ---
:1945 Author Organization [facility] t Address [facility] Bateman [address] [place] [address] Care Team Providers Name Role Phone Unavailable Unavailable Unavailable Problems This patient has no known problems. Allergies, Adverse Reactions, Alerts This patient has no known allergies or adverse reactions. Medications This patient has no known medications.
[2019-09-25] MEDS ORDERED: NA CHLORIDE 0.9% IV ONE (09:15)
[2019-09-25] MEDS ORDERED: INFLIXIMAB DYYB IV ONE (09:15)
[2019-09-25 09:22] VITALS: BMI 29.6
[2019-09-25] MEDS ORDERED: NA CHLORIDE 0.9% 250 ML ONE (09:29)
[2019-09-25 12:03] VITALS: O2SAT 98
[2019-09-25 12:05] VITALS: BP 136/71; TEMP 98.2
== END 2019-09-25 12:13 | disposition home or self-care (01) ==
LOC: DS 08:45
PROVIDERS: ATTEND Internal Medicine Gastroenterology
DX: K50.911 Crohn's disease, unspecified, with rectal bleeding (principal)
CPT/HCPCS: 96365; 96366; Q5103; J7030 ×2

== ENCOUNTER 2019-11-30 08:23 | Day surgery (SDC) | payer OTHER ==
[2019-11-30] MEDS ORDERED: NA CHLORIDE 0.9% 500 ML ONE (08:39)
[2019-11-30] MEDS ORDERED: NA CHLORIDE 0.9% IV ONE (09:00)
[2019-11-30] MEDS ORDERED: INFLIXIMAB DYYB IV ONE (09:00)
[2019-11-30 09:07] VITALS: BMI 29.2
--- OUTSIDE RECORDS SUMMARY | 2019-11-30 11:44 | XMS REPORT | Continuity of Care Document ---
:1945 Author Organization [facility] t Address [address] [place] [address] Care Team Providers Name Role Phone Unavailable Unavailable Unavailable Problems This patient has no known problems. Allergies, Adverse Reactions, Alerts This patient has no known allergies or adverse reactions. Medications This patient has no known medications. Procedures This patient has no known procedures. Results This patient has no known results.
[2019-11-30 13:41] VITALS: BP 154/78; O2SAT 98
[2019-11-30 13:46] VITALS: TEMP 97.6
== END 2019-11-30 11:40 | disposition home or self-care (01) ==
LOC: DS 08:23
PROVIDERS: ATTEND Internal Medicine Gastroenterology
DX: K50.911 Crohn's disease, unspecified, with rectal bleeding (principal)
CPT/HCPCS: 96365; 96366; Q5103; J7030; J7040

== ENCOUNTER 2020-02-01 08:26 | Day surgery (SDC) | payer OTHER ==
[2020-02-01] MEDS ORDERED: INFLIXIMAB DYYB IV ONE (09:00)
[2020-02-01] MEDS ORDERED: NA CHLORIDE 0.9% IV ONE (09:00)
--- OUTSIDE RECORDS SUMMARY | 2020-02-01 09:18 | XMS REPORT | Continuity of Care Document ---
:1945 Author Organization [facility] t Address [address] [place] [address] Care Team Providers Name Role Phone Unavailable Unavailable Unavailable Problems This patient has no known problems. Allergies, Adverse Reactions, Alerts This patient has no known allergies or adverse reactions. Medications This patient has no known medications. Procedures This patient has no known procedures. Results This patient has no known results.
[2020-02-01 09:38] VITALS: BMI 29.2
[2020-02-01 11:07] VITALS: TEMP 97.4
[2020-02-01 11:08] VITALS: BP 134/69; O2SAT 98
== END 2020-02-01 12:15 | disposition home or self-care (01) ==
LOC: DS 08:26
PROVIDERS: ATTEND Internal Medicine Gastroenterology
DX: K50.911 Crohn's disease, unspecified, with rectal bleeding (principal)
CPT/HCPCS: 96365; 96366; Q5103; J7050

== ENCOUNTER 2020-03-25 10:00 | Day surgery (SDC) | payer OTHER ==
--- OUTSIDE RECORDS SUMMARY | 2020-03-25 10:03 | XMS REPORT | Continuity of Care Document ---
:1945 Author Organization [facility] t Address [address] [place] [address] Care Team Providers Name Role Phone Unavailable Unavailable Unavailable Problems This patient has no known problems. Allergies, Adverse Reactions, Alerts This patient has no known allergies or adverse reactions. Medications This patient has no known medications. Procedures This patient has no known procedures. Results This patient has no known results.
[2020-03-25] MEDS ORDERED: INFLIXIMAB DYYB IV ONE (10:15)
[2020-03-25] MEDS ORDERED: NA CHLORIDE 0.9% IV ONE (10:15)
[2020-03-25] MEDS ORDERED: NA CHLORIDE 0.9% 500 ML ONE (10:53)
[2020-03-25 14:23] VITALS: BMI 27.2
[2020-03-25 14:38] VITALS: BP 145/84; TEMP 99; O2SAT 99
== END 2020-03-25 13:40 | disposition home or self-care (01) ==
LOC: DS 10:00
PROVIDERS: ATTEND Internal Medicine Gastroenterology
DX: K50.911 Crohn's disease, unspecified, with rectal bleeding (principal)
CPT/HCPCS: 96365; 96366; Q5103; J7050; J7040

== ENCOUNTER 2020-05-24 08:47 | Day surgery (SDC) | payer OTHER ==
[2020-05-24] MEDS ORDERED: INFLIXIMAB DYYB IV ONE (09:00)
[2020-05-24] MEDS ORDERED: NA CHLORIDE 0.9% IV ONE (09:00)
[2020-05-24] MEDS ORDERED: NA CHLORIDE 0.9% 250 ML ONE (09:12)
[2020-05-24 09:31] VITALS: BMI 30.7
[2020-05-24 16:22] VITALS: BP 148/86; TEMP 97.5; O2SAT 98
== END 2020-05-24 13:11 | disposition home or self-care (01) ==
LOC: DS 08:47
PROVIDERS: ATTEND Internal Medicine Gastroenterology
DX: K50.911 Crohn's disease, unspecified, with rectal bleeding (principal)
CPT/HCPCS: 96365; 96366; Q5103; J7050 ×2

== ENCOUNTER 2020-08-01 17:17 | Inpatient (IN) | payer OTHER ==
--- OUTSIDE RECORDS SUMMARY | 2020-08-01 17:21 | XMS REPORT | Continuity of Care Document ---
:1945 Author Organization [facility] t Address [address] [place] [address] Care Team Providers Name Role Phone Unavailable Unavailable Unavailable Problems This patient has no known problems. Allergies, Adverse Reactions, Alerts This patient has no known allergies or adverse reactions. Medications This patient has no known medications. Procedures This patient has no known procedures. Results This patient has no known results.
--- NOTE | 2020-08-01 18:07 | RAD REPORT ---
EXAM DESCRIPTION: RAD - Chest Pa And Lat (2 Views) - 08/01/2020 6:01 pm CLINICAL HISTORY: [place] Chest pain. COMPARISON: Chest Single View dated 11/13/2018; Chest Pa And Lat (2 Views) dated 06/11/2018; Chest Sing le View dated 11/07/2016; Chest Pa And Lat (2 Views) dated 11/05/2016 TECHNIQUE: PA and lateral views of the chest were obtained. FINDINGS: The lungs are hyperexpanded compatible with COPD. The heart is mildly enlarged in size. No fracture or aggressive bony process. IMPRESSION: COPD without acute process identified.
[2020-08-01 18:37] LABS: Absolute Lymphocytes (CBC) 2.1 K/uL (0.7-4.9); Basophils % 0.5 % (0-1.3); Hematocrit 41.8 % (39.6-49.0); Lymphocytes % 21.8 % (15.3-44.8); MPV 8.3 fL (7.6-11.3); RBC Red Blood Cell Count 4.39 M/uL (4.33-5.43)
[2020-08-01 18:55] LABS: ALT/SGPT 108 U/L (12-78); AST/SGOT 58 U/L (15-37); Albumin 3.4 g/dL (3.4-5.0); Alkaline Phosphatase 90 U/L (45-117); BUN Blood Urea Nitrogen 29 mg/dL (7-18); Bicarbonate 26 mmol/L (21-32); Bilirubin Total 0.9 mg/dL (0.2-1.0); Creatine Phosphokinase 91 U/L (39-308); Glucose Level 138 mg/dL (74-106); Magnesium 2.4 mg/dL (1.8-2.4); NT PRO-BNP 12327 pg/mL (<125); Potassium 4.2 mmol/L (3.5-5.1); Protein, Total 6.8 g/dL (6.4-8.2); Sodium Level 140 mmol/L (136-145); Troponin I < 0.02 ng/mL (0.0-0.045)
[2020-08-01] MEDS ORDERED: ASPIRIN 325 MG TAB PO ONE (19:00)
--- NOTE | 2020-08-01 19:32 | ER ---
Nurse's Notes [facility] Name: Felipe Ross Age: 74 yrs Sex: Male : 1945 Arrival Date: 08/01/2020 Time: 17:20 Bed Direct Admit Private MD: Diagnosis: Chest pain, unspecified Presentation: 08/01 17:38 Chief complaint: Patient states: Direct Admit from Dr. Lora. Pending Covid-19 test ca1 result. Coronavirus screen: Client denies travel out of the [place] in the last 14 days. shortness of breath, Client presents with at least one sign or symptom that may indicate coronavirus-19. Standard/surgical mask placed on the client. Provider contacted for isolation considerations. Ebola Screen: Patient negative for fever greater than or equal to 101.5 degrees Fahrenheit, and additional compatible Ebola Virus Disease symptoms Patient denies exposure to infectious person. Patient denies travel to an Ebola-affected area in the 21 days before illness onset. No symptoms or risks identified at this time. Initial Sepsis Screen: Does the patient meet any 2 criteria? No. Patient's initial sepsis screen is negative. Does the patient have a suspected source of infection? No. Patient's initial sepsis screen is negative. Risk Assessment: Do you want to hurt yourself or someone else? Patient reports no desire to harm self or others. Onset of symptoms was August 01, 2020. 17:38 Acuity: SYDNEE 3 ca1 17:38 Method Of Arrival: Wheelchair ca1 Historical: - Allergies: 17:40 Iodinated Contrast Media - IV Dye; ca1 - Home Meds: 17:46 Advair Diskus 250-50 mcg/dose Inhl dsdv 1 puff 2 times per day [Active]; benazepril 20 ca1 mg Oral tab 1 tab once daily [Active]; benazepril-hydrochlorothiazide 20-12.5 mg Oral tab 1 tab once daily [Active]; calcium citrate 500 mg plus Vit D 500 IU Oral tab daily [Active]; Centrum Silver oral oral [Active]; mesalamine oral DR 400 mg oral 1 cap 2 times per day [Active]; omeprazole 20 mg Oral cpDR 1 cap once daily [Active]; Vitamin C 500 mg Oral tab twice a day [Active]; risedronate 150 mg oral tab 1 tab once moly [Active]; acetaminophen-codeine 300-30 mg Oral tab every 4 hours [Active]; Claritin-D 12 Hour 5-120 mg Oral Tb12 [Active]; Zyrtec 10 mg Oral tab 1 tab once daily [Active]; Remicade 100 mg intravenous solr every 8 wks [Active]; ProAir HFA 90 mcg/actuation inhalation HFAA [Active]; - PMHx: 17:40 Asthma; Atrial Fib; Chronic back/leg pain; herniated discs; Hypertension; Left atrium ca1 enlargement; Mitral Valve Regurgitation; - Immunization history:: Adult Immunizations up to date, Flu vaccine is up to date. - Social history:: Smoking status: Patient denies any tobacco usage or history of. Screenin:52 Abuse screen: Denies threats or abuse. Nutritional screening: No deficits noted. ll2 Tuberculosis screening: No symptoms or risk factors identified. Fall Risk None identified. Vital Signs: 17:38 BP 135 / 95; Pulse 72; Resp 18 S; Temp 97.1(TE); Pulse Ox 96% on R/A; Weight 128.82 kg ca1 (R); Height 6 ft. 8 in. (203.20 cm) (R); 17:38 Body Mass Index 31.20 (128.82 kg, 203.20 cm) ca1 ED Course: 17:20 Patient arrived in ED. ds1 17:39 Triage completed. ca1 17:40 Arm band placed on right wrist. ca1 19:30 Mando Lora MD is Hospitalizing Provider. 19:52 Patient has correct armband on for positive identification. Pulse ox on. NIBP on. ll2 19:52 No provider procedures requiring assistance completed. Patient admitted, IV remains in ll2 place. Administered Medications: No medications were administered Outcome: 19:31 Decision to Hospitalize by Provider. dw 19:52 Admitted to Med/surg accompanied by tech, via wheelchair, Report called to [facility] nj ll2 19:52 Condition: stable 19:52 Instructed on the need for admit. 19:54 Patient left the ED. ll2 Signatures: Alesha Moss RN RN Jhoana Ward ds1 Yael Gomez RN RN ca1 Radha Galarza RN RN ll2
[2020-08-01] MEDS ORDERED: FUROSEMIDE 20 MG/ 2ML VIAL IV ONE (20:07)
[2020-08-01] MEDS: Enoxaparin 120 MG/0.8 ML SYR SQ SCH (21:00)
[2020-08-01] MEDS ORDERED: ALBUTEROL INHALER 60 PUFF/8 GM IH PRN (22:08)
--- NOTE | 2020-08-02 04:56 | HP ---
Date of Admission: 08/01/2020 Chief Complaint: Shortness of breath and chest pain. History Of Present Illness: This is a 74-year-old male patient, who came into our office today with his with complaints of chest pain and shortness of breath. The patient was evaluated via TeleVi sit 1 week ago and at that time, he informed me that he was having cough, congestion, coughing up gurpreet e clear to brown mucus. He also reported having some shortness of breath with activity and this prob william with shortness of breath has been increasingly getting worse. He was advised to take prednisone tapering dose for 9 days and he has a couple of more days of prednisone treatment left and was also g ike Cruz, and he was advised to come see me today for followup visit, so we can discuss more detail s about this presenting complaints. Today, when he came into office, he informed me that he has seen minimal improvement in his symptoms. He continues to have this chest pressure type of feeling and t hat only happens when he does any day-to-day activity including just walking across the room, he has chest pressure type of feeling. At the same time with any activity, he also gets extremely short of breath and he has to sit down and this was noted today at the office. Taking 5-10 steps in the exam room, he was extremely short of breath. He takes him minute to 2 minutes to alleviate his symptoms a fter he rests. The patient says that his symptoms have been getting worse for last 2 months, but alt ogether his symptoms are going on for last few months, but lot worse in last 2 months. After I evalu ated him, he was admitted to the hospital for further evaluation and management of this problem. Allergies: IODINE CAUSING ANAPHYLACTIC REACTION. Medications: Tylenol with codeine as needed, albuterol inhaler 2 puffs every 4 hours as needed for s hortness of breath, benazepril 20 mg daily, benazepril/HCTZ 20/12.5 one tablet daily, Advair 250/50 o ne puff 2 times a day, Remicade infusion, mesalamine 400 mg dose, omeprazole 20 mg daily, and Actonel 150 mg once a month. Review of Systems: Cardiovascular: As mentioned above. Respiratory: As mentioned above. All other systems reviewed and negative. Past Medical History: Impaired fasting glucose, mild persistent asthma, hypertension, hyperlipidemia , paroxysmal atrial fibrillation, gastroesophageal reflux disease, Crohn disease, diverticulosis, ost eoporosis. Past Surgical History: Sinus surgery, tonsillectomy, back surgery, radius and ulna fracture surgery on the left forearm. Family History: Father had lung cancer and prostate cancer. Mother had heart disease and hypertensi on. Brother with diabetes. Social History: Negative for smoking or alcohol use. Physical Examination: Vital Signs: When I saw him at office, weight 284 pounds, respiratory rate 16, temperature 97.3, pul se rate was 80 beats per minute, and blood pressure 165/78. General: Awake, alert, oriented, not in distress. HEENT: Head atraumatic, normocephalic. Conjunctivae nonerythematous. Sclerae white. Mouth, no thr ush or edema noted. Ears/Nose, no mass, lesion, discharge noted. Neck: Supple. No JVD, lymph nodes, bruit, thyromegaly noted. Lungs: Bilateral good equal air entry. Clear to auscultation. No rhonchi. No rales. Heart: Normal heart sounds. No murmur or gallop. Abdomen: Soft. Bowel sounds normal. No guarding, rigidity, tenderness, mass, hepatosplenomegaly, d istention, or bruit noted. Extremities: No leg edema. No calf tenderness. Skin: No rash, ulcer, cellulitis. Lymphatics: No lymph node enlargement in neck, supraclavicular, infraclavicular region. Neuro: No focal neurological deficit. Chest: Unremarkable. External Genitalia: Deferred. Rectal: Deferred. Laboratory Data: Sodium 140, potassium 4.2, chloride 104, bicarb 26, BUN 29, creatinine 1.40, glucos e 138, AST 58, ALT 108, alkaline phosphatase 90. Total CPK 91. Troponin less than 0.02. ProBNP 12, 327. TSH 3.98. D-dimer 717. White count 9.8, hemoglobin 13.4, platelets 249. COVID-19 test negati ve. Chest x-ray shows changes of COPD, otherwise unremarkable. Impression: 1.Unstable angina. 2.Acute kidney injury. 3.Hypertension. 4.Hyperlipidemia. 5.Impaired fasting glucose. 6.Paroxysmal atrial fibrillation. 7.Mild persistent asthma. 8.Gastroesophageal reflux disease. 9.Diverticulosis. 10.Crohn disease. 11.Osteoporosis. Plan: We will admit the patient to hospital for further evaluation and management of this problem. The patient is appropriate for inpatient and is expected to spend 2 midnights in hospital. We will c ontinue his home medications per order. His previous creatinine was 1.1 and this was on March 15, 2020 and prior to that in September 2019, it was also 1.1. We will go ahead and give him some IV fluid o vernight, and we will repeat blood work tomorrow morning. Aspirin 325 mg p.o. x1 dose was given upon admission and we will start him on Lovenox 120 mg subcutaneous injection every 12 hours. We will co nsult front desk representative and electrical engineer, and I have discussed details with both of this specialist. Our concern is unstable angina and after looking at his other test results, we need to rule out any unde rlying possibility of pulmonary embolism or other pulmonary etiology like pulmonary hypertension, etc . Tomorrow, we will have an echo with Doppler and I will repeat blood work tomorrow morning. The pa tient will need further cardiac testing. Ideally, one should consider doing cardiac catheterization and details were discussed with the patient and his at office. I will see him tomorrow for jefe crowley ACA/MODL Voice ID: [id number]
[2020-08-02] MEDS: PANTOPRAZOLE 40MG TABLET PO SCH (06:10)
[2020-08-02] MEDS: Enoxaparin 120 MG/0.8 ML SYR SQ SCH ×2 (09:00→20:58)
[2020-08-02] MEDS ORDERED: hydroCHLOROthiazide 12.5 MG CAP PO SCH (09:00)
[2020-08-02] MEDS ORDERED: BENAZEPRIL 20 MG TAB PO SCH (09:00)
[2020-08-02] MEDS ORDERED: SOTALOL HCL 80 MG TAB PO SCH (09:00)
[2020-08-02] MEDS: DULERA 100/5 (MOMETASONE/FORMOTEROL) INHALER IH SCH ×2 (09:00→20:54)
--- NOTE | 2020-08-02 10:09 | RAD REPORT ---
EXAM DESCRIPTION: NM - Vent Perfusion VQ Scan - 08/02/2020 9:51 am CLINICAL HISTORY: Shortness of breath COMPARISON: 2017 CT scan and chest x-ray August 01, 2020 TECHNIQUE: 20.3 Mci Xe133 was administered by inhalation. First breath, equilibrium, and washout images of the lungs obtained 7.7 millicuries Technetium-99 MAA was administered intravenously. Anterior, posterior, lateral and ob lique views of the lungs were taken. FINDINGS: The lungs demonstrate relatively homogeneous radiotracer activity on ventilation and perfu yasmany sequences. No mismatched segmental or lobar perfusion defects are seen. IMPRESSION: No evidence of a pulmonary embolus
--- NOTE | 2020-08-02 12:17 | P.CNS ---
Date of Consult: 08/02/20 Reason for Consult: Shortness of breath Chief Complaint: Shortness of breath History of Present Illness: Patient is 74 years of age is been complaining of dyspnea on mild exertion is become progressively worse over the past 2 months also has lower extremity edema for quite some time animal exertion causes severe respiratory distress no evidence of pulmonary emboli Allergies Iodinated Contrast Media [Iodinated Contrast Media - IV Dye] Allergy (Severe, Verified 05/24/20 09:32) Anaphylaxis adhesive tape Allergy (Verified 05/24/20 09:32) erythema Home Medications: Calcium Carbonate/Vitamin D3 [Calcium 500 + Vit D 400 Tablet] 1 tab PO BID 03/19/14 Diphenhydramine [Benadryl*] 25 mg PO PRN 04/19/17 Fluticasone/Salmeterol [Advair 250-50 Diskus] 1 diskus IH BID 03/26/19 Mesalamine [Delzicol] 1 cap PO BID 07/03/19 Omeprazole 1 tab PO DAILY 07/03/19 - Past Medical/Surgical History Diabetic: No -: asthma -: herniated disc -: Atrial fib -: HTN -: left atrium enlargment -: chronic back/leg pain -: Crohn's disease -: right knee sx -: 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) -: bilateral breast benign cyst removal, - Family History Mother Medical History: Other (see notes) Notes: mom in heart attack Father Medical History: Cancer - Social History Smoking Status: Never smoker Alcohol use: No Review of Systems 10-point ROS is otherwise unremarkable General: Weakness Respiratory: Shortness of Breath Cardiovascular: Edema Physical Examination Temp Pulse Resp BP Pulse Ox 97.0 F 104 H 18 120/88 95 08/02/20 08:00 08/02/20 09:04 08/02/20 08:00 08/02/20 09:04 08/02/20 08:00 General: Alert, Oriented x3 HEENT: Atraumatic Neck: Supple Respiratory: Clear to auscultation bilaterally, Diminished Cardiovascular: Normal S1 S2, Other (Jugular venous pressure is elevated), Edema (3+ edema) Gastrointestinal: Normal bowel sounds, Soft and benign Musculoskeletal: No clubbing - Problems (1) Shortness of breath Current Visit: Yes Status: Acute Plan: Patient is 74 years of age admitted with progressive dyspnea on mild exertion for the past 2 months he is at chronic lower extremity edema chest x-ray shows diminished lung volume with cephalization his venous pressure appears to be elevated renal function is slightly worse CBC normal liver function tests are also abnormal V/Q scan no evidence of pulmonary embolus saturation is 98% on room air await 2D echo continue with low-dose diuretic clinically he has heart failure patient is on hydrochlorothiazide patient is in AFib patient has severe global hypokinesis on the echo
--- NOTE | 2020-08-02 12:29 | EKG ---
Test Date: 2020-08-01 Test Time: 18:12:14 Dive Master: JONNY MEASUREMENT RESULTS: Intervals: Rate: 113 MO: QRSD: 140 QT: 376 QTc: 515 [place]: P: MO: QRS: -6 T: 92 INTERPRETIVE STATEMENTS: Atrial fibrillation with rapid ventricular response Left bundle branch block Abnormal ECG Compared to ECG 11/13/2018 19:28:09 Left bundle-branch block now present Sinus rhythm no longer present First degree AV block no longer present Electronically Signed On 08-02-20 12:27:46 MEDICAL DOCTOR MD by Alfredito Mayorga
--- NOTE | 2020-08-02 13:50 | RAD REPORT ---
EXAM DESCRIPTION: USExtrem Venous W Compress Bil08/02/2020 12:12 pm CLINICAL HISTORY: Leg pain COMPARISON: 2017 FINDINGS: The common femoral, superficial femoral, popliteal and posterior tibial veins bilaterally are compressible and demonstrate augmentation. Doppler demonstrates good flow. 4.3 centimeter right Jeffries's cyst IMPRESSION: No evidence of deep venous thrombosis involving either lower extremity.
--- NOTE | 2020-08-02 14:00 | ECHO ---
HEIGHT: 6 ft 8 in WEIGHT: 284 lb 0 oz DATE OF STUDY: 08/02/[address]: Hao Ma MD 2-DIMENSIONAL: YES M.MODE: YES DOPPLER: YES COLOR FLOW: YES TDS: PORTABLE: DEFINITY: BUBBLE STUDY: DIAGNOSIS: SHORTNESS OF BREATH CARDIAC HISTORY: CATHERIZATION: SURGERY: PROSTHETIC VALVE: PACEMAKER: MEASUREMENTS (cm) DIASTOLIC (NORMALS) SYSTOLIC (NORMALS) IVSd 1.0 (0.6-1.2) LA Diam 5.3 (1.9-4.0) LVEF 13% LVIDd 5.1 (3.5-5.7) LVIDs 4.8 (2.0-3.5) %FS 6% LVPWd 1.0 (0.6-1.2) Ao Diam 3.6 (2.0-3.7) 2 DIMENSIONAL ASSESSMENT: RIGHT ATRIUM: NORMAL LEFT ATRIUM: DILATED RIGHT VENTRICLE: NORMAL LEFT VENTRICLE: NORMAL SIZE TRICUSPID VALVE: NORMAL MITRAL VALVE: NORMAL PULMONIC VALVE: NORMAL AORTIC VALVE: NORMAL PERICARDIAL EFFUSION: NONE AORTIC ROOT: NORMAL LEFT VENTRICULAR WALL MOTION: SEVERE GLOBAL HYPOKINESIS DOPPLER/COLOR FLOW: MILD TRICUSPID REGURGITATION. MILD PULMONARY HYPERTENSION. COMMENTS: SEVERE GLOBAL HYPOKINESIS - EJECTION FRACTION 13-15%. LEFT ATRIAL ENLARGEMENT. MILD PULMONARY HYPERTENSION. RIGHT VENTRICULAR SYSTOLIC PRESSURE 44mmHg. TECHNOLOGIST: IRINA PATRICK
[2020-08-02] MEDS ORDERED: FUROSEMIDE 20 MG/ 2ML VIAL IV ONE (16:55)
[2020-08-02 20:12] LABS: Magnesium 2.3 mg/dL (1.8-2.4); Potassium 3.9 mmol/L (3.5-5.1)
[2020-08-02] MEDS: carvediloL 3.125 MG TAB PO SCH (20:55)
[2020-08-02] MEDS: SACUBITRIL/VALSARTAN 24/26 MG TAB PO SCH (20:55)
[2020-08-02] MEDS ORDERED: FUROSEMIDE 40 MG/4 ML VIAL IV ONE (21:00)
[2020-08-02] MEDS ORDERED: POTASSIUM CL SA 10 MEQ TAB PO ONE (21:00)
[2020-08-03 01:04] VITALS: O2SAT 95
[2020-08-03] MEDS: PANTOPRAZOLE 40MG TABLET PO SCH (05:32)
[2020-08-03] MEDS: carvediloL 3.125 MG TAB PO SCH ×2 (05:32→20:51)
[2020-08-03 05:37] LABS: Basophils % 0.7 % (0-1.3); Hematocrit 38.9 % (39.6-49.0); Lymphocytes % 33.7 % (15.3-44.8); MPV 8.1 fL (7.6-11.3); RBC Red Blood Cell Count 4.21 M/uL (4.33-5.43)
[2020-08-03 05:53] LABS: Magnesium 2.1 mg/dL (1.8-2.4); Potassium 3.3 mmol/L (3.5-5.1)
[2020-08-03 06:24] VITALS: BMI 28.7
--- NOTE | 2020-08-03 06:39 | PN ---
Date of Progress Note: 08/02/2020 Subjective: The patient was seen for followup this morning. No new complaints or problems reported by him except reported having some shortness of breath at nighttime while he was lying down flat in t he bed and he had to raise his head up. The patient reports having such problem lately at home also for few nights prior to this hospital admission. Objective: Vital Signs: Reviewed. HEENT: Unremarkable. Lungs: Clear to auscultation. Heart: Sounds normal. Abdomen: Soft. Bowel sounds normal. No guarding, rigidity, tenderness, or distention. Extremities: No leg edema. Laboratory Data: Echocardiogram findings reviewed. The patient has severe hypokinesis with ejection fraction 13%. Impression: 1.Unstable angina. 2.Cardiomyopathy, dilated. 3.Congestive heart failure, acute, systolic. 4.Hypertension. 5.Atrial fibrillation. Plan: The patient was noted to have atrial fibrillation upon admission, as well as currently on tele metry monitor and he was started on sotalol 80 mg 2 times a day. Details were discussed with cardiol ogist. After we received his echocardiogram result during the course of day today, we decided to dis continue sotalol, which was initiated this morning and the patient has received 1 dose of sotalol but now considering this extremely low ejection fraction as per my discussion with senior hydrogeologist we will discontinue sotalol, start him on carvedilol and Entresto. His benazepril and hydrochlorothiazide th at he takes at home will be discontinued. He received 1 dose of Lasix 20 mg IV yesterday evening. A nother dose of 20 mg IV was given this afternoon. During evening hours today, I did talk to patient and patient's , both were available on the phone and details about echocardiogram findings discus sed with them. I have also discussed details with Dr. Mayorga, who is planning to do heart catheteri zation tomorrow. Repeat chem 7 done this evening, creatinine is slightly better this evening compare d to yesterday and we will give another dose of 40 mg Lasix IV. We will continue Lovenox. The patie nt will need to rule out triple-vessel coronary artery disease and once we have cardiac cath results tomorrow, we will determine further plan of action. The patient had a brief episode of nonsustained ventricular tachycardia on monitoring coordinator and this is unfortunately expected with his severely low ejection fraction and I have discussed all these details with Dr. Mayorga. At this point, his condi tion is serious, but stable. I will see him tomorrow morning for followup. The patient eventually m ay need defibrillator placement. FELICIA/MODL Voice ID: [id number] Report ID: [id number]
[2020-08-03] MEDS: Enoxaparin 120 MG/0.8 ML SYR SQ SCH ×2 (07:41→20:52)
[2020-08-03] MEDS ORDERED: predniSONE 20 MG TAB PO ONE (07:42)
[2020-08-03] MEDS ORDERED: ACETYLCYST 20% 800 MG/4 ML VIAL PO ONE (08:00)
[2020-08-03] MEDS ORDERED: HEPA 1000U/500MLS 1,000 UNIT/500 ML BAG IV ONE (08:00)
[2020-08-03] MEDS ORDERED: NITROGLYCERIN 100 MCG/ML SYR (for cath lab use only) IV ONE ×2 (08:08)
[2020-08-03] MEDS ORDERED: NITROGLYCERIN/D5W 25 MG/250 ML BTL IV ONE (08:09)
[2020-08-03] MEDS: KCL 20 MEQ/100 mL IVPB 20 MEQ/100 ML BAG IV SCH ×2 (08:39→10:00)
[2020-08-03] MEDS: SACUBITRIL/VALSARTAN 24/26 MG TAB PO SCH ×2 (09:00→20:51)
[2020-08-03] MEDS: DULERA 100/5 (MOMETASONE/FORMOTEROL) INHALER IH SCH ×2 (09:00→20:51)
[2020-08-03] MEDS ORDERED: NA CHLORIDE 0.9% 500 ML ONE (10:01)
[2020-08-03] MEDS ORDERED: MIDAZOLAM HCL 2 MG/2 ML INJ ONE (10:10)
[2020-08-03] MEDS ORDERED: FENTANYL CITR 100 MCG/2 ML ONE (10:10)
[2020-08-03] MEDS ORDERED: NA CHLORIDE 0.9% 0 ML ONE (10:10)
[2020-08-03] MEDS ORDERED: ATROPINE SULF 1 MG/10 ML SYR IV ONE (10:10)
[2020-08-03] MEDS ORDERED: METHYLPREDNISOLONE 125 MG INJ ONE (10:13)
[2020-08-03] MEDS ORDERED: LIDOCAINE 1% MPF 5 ML VIAL ONE (11:26)
--- NOTE | 2020-08-03 12:44 | OP ---
Date of Procedure: 08/03/2020 Surgeon: Alfredito Mayorga MD Radiation Officer: Mr. Chandler. Procedures: Left heart catheterization, selective coronary arteriogram. Indication: New onset congestive heart failure, unstable angina, new onset atrial fibrillation. Mr. Ross is a 74-year-old male with history of asthma, mitral regurgitation, left atrial enlargement, paroxysmal atrial fibrillation, came to the hospital with 2 years of symptoms of dyspnea on exertion , but the last 2 months has had chest pain with exertion consistent with unstable angina. Echocardio gram found ejection fraction of 13%. Procedure In Detail: Brought to the labeling strategist today, prepped and draped in routine sterile fashion. Given Versed for sedation. A 6-Romanian sheath introduced in the right common femoral artery successfu lly using the Seldinger technique and 10 cc of Xylocaine. JL4 and JR4 catheters were used to do the diagnostic catheterization. Was found to have a normal RCA. His left main had about a 60% to 70% os tial stenosis. He had a 50% ostial diagonal, some mild disease and plaque in the LAD. There were no complications. Blood loss was 5 mL. The patient tolerated the procedure well. Total conscious sed ation was 45 minutes. Final Diagnoses: Severe coronary artery disease, severe congestive heart failure, atrial fibrillatio n. Plan: We will plan to transfer to [facility] for further care and possible intervention on hi s left main with bypass with a stent, congestive heart failure team consultation, Electrophysiology c onsultation. Transfer arrangements have already been started with Dr. Ezekiel Werner. Plan is to contin ue medical therapy for now otherwise. He will be at bedrest for 2 hours. StarClose was used to close the procedure in the [facility] common femoral area. NB/MODL Voice ID: [id number] Report ID: [id number]
--- NOTE | 2020-08-03 14:29 | CON ---
Date of Consultation: 08/02/2020 The patient admitted to Dr. Lora's service on 08/01/2020. I saw the patient on 08/02/2020. Reason For Consultation: Unstable angina. History Of Present Illness: Mr. Ross is a 74-year-old white male, who used to see my partner, DrAba Morales in the past, but not seen him for the couple of years. Came in with shortness of breat h and dyspnea on exertion for about 3 years, but in the last 2 months, has been having chest pain wit h exertion, midsternal, radiated to the arm and jaw with diaphoresis and shortness of breath, PND, or thopnea, pedal edema. He denied having any palpitations or syncope. He denied any fever or chills. Dr. Lora had sent him to the hospital from the office for further evaluation and treatment. Past Medical History: Includes history of asthma, atrial fibrillation, mild mitral regurgitation, an d left atrial enlargement. Review of Systems: Negative. Social History: Negative. Family History: Noncontributory. Allergies: HE IS ALLERGIC TO IODINE AND ADHESIVE TAPE. Physical Examination: General: Mr. Ross appears to be in mild respiratory distress. Vital Signs: Stable. He was in atrial fibrillation at rate of 110. He was afebrile. HEENT: Negative. Neck: Supple without any bruit, lymphadenopathy, JVD, or thyromegaly. Chest: Reveals rales at bases. Cardiac: Revealed atrial fibrillation. No murmurs, gallops, or rubs. Abdomen: Obese, benign. Extremities: Revealed no clubbing, cyanosis, or edema. Neurologic: He was nonfocal. Pulses were present distally bilaterally. Skin: Dry and intact. Diagnostic Data: His EKG showed atrial fibrillation with a rate of 104. Creatinine is 1.40. BNP wa s 12,377. His D-dimer is 717. Chest x-ray shows COPD. Impression And Plan: 1.Unstable angina. 2.Elevated D-dimer. 3.Elevated BNP. 4.Allergy to iodine. 5.Atrial fibrillation with rapid ventricular response. 6.Chronic obstructive pulmonary disease. 7.Mitral regurgitation by history. Mr. Ross needs heart catheterization done to define his coronary anatomy. I think he needs a Pulm onary consultation to get a CT angiogram or a V/Q scan to rule out pulmonary embolism and he needs to have an echocardiogram today. He needs to continue his present regimen for now including echo, V/Q scan, heart catheterization, and Pulmonary consultation earlier before making further deci sions. The case discussed in detail with Dr. Lora. He should definitely on anticoagulation with Kristyn enox . Before the heart catheterization, he will need Mucomyst and he will need reaction to iodine. We will continue to follow him. VERA/ASMITA Voice ID: [id number] Report ID: [id number]
[2020-08-03] MEDS ORDERED: POTASSIUM CL SA 10 MEQ TAB PO ONE (15:18)
--- NOTE | 2020-08-04 06:31 | DS ---
Date of Discharge: 08/03/2020 Disposition: Discharged to go to [facility] via ground ambulance. Physical Examination: HEENT: Unremarkable. Lungs: Bilateral good equal air entry except diminished air entry in both lung bases with some rales noted. Not in respiratory distress. Heart: Sounds normal. Abdomen: Soft. Bowel sounds normal. No guarding, rigidity, tenderness, distention. Extremities: Bilateral trace leg edema. Laboratory Data: Echocardiogram shows severe global hypokinesis with ejection fraction 13%. Cardiac cath done today shows 50% left main and 50% stenosis in circumflex artery. CBC upon admission on ; white count 9.8, hemoglobin 13.4, platelets 249. This morning; white count 8.8, hemoglobin 13, platelets 219. Last chemistry today; sodium 142, potassium 3.3, chloride 105, bicarb 31, BUN 34 , creatinine 1.31, glucose 91, magnesium 2.1. Upon admission; sodium 140, potassium 4.2, chloride 10 4, bicarb 26, BUN 29, creatinine 1.40, glucose 138, AST 58, ALT 108, alkaline phosphatase 90, TSH 3.9 8. Troponin less than 0.02. ProBNP 12,327. Hospital Course: A 74-year-old very pleasant male patient, came into office with shortness of breath and some chest pressure type of feeling. Please see dictated H and P for more information. After t he patient was evaluated at office, decision was made to admit him to the hospital and admitted to [facility] and further evaluation revealed abnormal renal function with abnormal liver function. The patient had ProBNP and elevated D-dimer. On the day of admission, the patient was given 20 mg Lasix IV x1. He also has paroxysmal nocturnal dyspnea and orthopnea. He gets extremely short of breath w ith any activity including walking in the room, just taking 5-10 steps he gets extremely short of keya ath and takes a few minutes to recover. This symptoms has been progressively getting worse lately an d in last few days he is having paroxysmal nocturnal dyspnea and orthopnea. After he was admitted, w e did an echocardiogram, which shows very low ejection fraction. The patient was started on Lovenox 120 mg subcutaneous injection every 12 hours as of day of admission. V/Q scan was negative for pulmo nary embolism. Venous Doppler of leg was negative for DVT. Cardiology and Pulmonary consultation we re obtained. Yesterday, we gave him 20 mg Lasix in the afternoon and then 40 mg Lasix last night and he diuresed very well and this morning when I saw him, he reported that last night he was able to sl eep very well without waking up from sleep because of shortness of breath. He has been going back an d forth to the bathroom to urinate and says that his shortness of breath has improved significantly. The patient was started on Entresto. We also started him on carvedilol. He had atrial fibrillation and some nonsustained paroxysmal ventricular tachycardia noted on telemetry. Dr. Mayorga did cardia c cath today and he discussed cardiac cath findings with me. He recommended for patient to be transf erred to [place] for higher level of care. He has discussed all the details with the patient's and patient. This morning when I saw the patient prior to cardiac cath, I did discuss all the detail s with them as well about all the possible interventions and plan of treatment. The patient will be transferred via ground ambulance this evening to [facility] in [place] for higher level of care. Final Diagnoses: 1.Dilated cardiomyopathy. 2.Congestive heart failure, acute, systolic. 3.Coronary artery disease. 4.Unstable angina. 5.Chronic kidney disease stage 3A. 6.Hypertension. 7.Hyperlipidemia. 8.Crohn disease. 9.Atrial fibrillation, paroxysmal. 10.Nonsustained paroxysmal ventricular tachycardia. Discharge Medications And Instructions: See copy of transfer order. FELICIA/MODL Voice ID: [id number] Report ID: [id number]
[2020-08-04 10:01] VITALS: BP 128/80; TEMP 97.6
== END 2020-08-03 21:30 | disposition short-term general hospital (02) | DRG 286 ==
LOC: ER 17:17 → ERHOLD 17:42 → 2ND 19:34
PROVIDERS: ADMIT Internal Medicine; ATTEND Internal Medicine
PROC: 4A023N7 Measurement of Cardiac Sampling and Pressure, Left Heart, Percutaneous Approach (ICD-10-PCS; principal; 2020-08-03)
PROC: B2111ZZ Fluoroscopy of Multiple Coronary Arteries using Low Osmolar Contrast (ICD-10-PCS; 2020-08-03)
DX: I25.110 Atherosclerotic heart disease of native coronary artery with unstable angina pectoris (principal); I50.21 Acute systolic (congestive) heart failure; N17.9 Acute kidney failure, unspecified; K50.90 Crohn's disease, unspecified, without complications; I13.0 Hypertensive heart and chronic kidney disease with heart failure and stage 1 through stage 4 chronic kidney disease, or unspecified chronic kidney disease; I47.2 Ventricular tachycardia; N18.31 Chronic kidney disease, stage 3a; I42.0 Dilated cardiomyopathy; I48.0 Paroxysmal atrial fibrillation; E78.5 Hyperlipidemia, unspecified; J44.9 Chronic obstructive pulmonary disease, unspecified; K21.9 Gastro-esophageal reflux disease without esophagitis; J45.30 Mild persistent asthma, uncomplicated; K57.90 Diverticulosis of intestine, part unspecified, without perforation or abscess without bleeding; M81.0 Age-related osteoporosis without current pathological fracture; R73.01 Impaired fasting glucose; Z91.041 Radiographic dye allergy status; Z91.048 Other nonmedicinal substance allergy status; Z79.899 Other long term (current) drug therapy; Z20.822 Contact with and (suspected) exposure to COVID-19
CPT/HCPCS: 36415; 71046; 78582; 80048; 80053; 82550; 82553; 83735; 83880; 84439; 84443; 84484; 85025; 85379; 93005; 93306; 93454; 93970; 94010; A9540; A9558; C1893; J0583; J1644; J1650; J1940; J2250; J2930; J3010; J3480; J7040; J7512; J7606; U0003

== ENCOUNTER 2020-08-22 15:19 | Observation (INO) | payer OTHER ==
--- OUTSIDE RECORDS SUMMARY | 2020-08-22 15:23 | XMS REPORT | Continuity of Care Document ---
:1945 Author Organization [facility] t Address [address] [place] [address] Care Team Providers Name Role Phone Marcus Lora MD Primary Care Physician Robert Michel MD Attending Clinician Shonna AGUDELO S Attending Clinician ROBERT MCIHEL Attending Clinician Unavailable ROBERT MICHEL Admitting Clinician Unavailable Payers Payer Name Policy Type Policy Effective Date Expiration Date Sour ce Number AETNA - MEDICARE [id number] [address] [facility] [facility] MGD CAREAETNA 00:00:00 - Medical MEDICARE O Center [id number], [place] [address]Gjuh Contracted Problems Condition Condition Condition Status Onset Resolution Last Treating Co mments Source Name Details Category Date Date Treatment Clinician Date CAD CAD Disease Active [facility] (coronary (coronary 3-03 [place] [facility] - artery artery 00:00: Medical disease) disease) 00 Center Paroxysmal Paroxysmal Disease Active [facility] A-fib A-fib [facility] HTN HTN Disease Active [facility] (hypertens (hypertens [facility] kes - ion) ion) [facility] Dyslipidem Dyslipidem Disease Active [facility] ia ia [facility] Crohn's Crohn's Disease Active [facility] colitis colitis [facility] Chronic Chronic Disease Active [facility] systolic systolic [facility] - CHF CHF Medical (congestiv (congestiv Ce nter e heart e heart failure) failure) Allergies, Adverse Reactions, Alerts Allergy Allergy Status Severity Reaction(s) Onset Inactive Treating Comm ents Source Name Type Date Date Clinician Iodine Propensi Active Hives, [facility] And ty to Shortness Of 3-03 [facility] - Iodide adverse Breath 00:00: Medical Containi reaction 00 Center ng s Products Social History Social Habit Start Date Stop Date Quantity Comments Source Sex Assigned At [facility] Exposure to SARS-CoV-2 Not sure I [facility] (event) Center Medications Ordered Filled Start Stop Current Ordering Indication Dosage Frequency Signature Comments Components Source Medication Medication Date Date Medication? Clinician (SIG) Name Name metoprolol 2021- Yes 12.5mg QD Take 0.[address] succinate 3-10 03-10 tablets [facility] - (TOPROL-XL) 00:00: 23:59 (12.5 mg M edical 25 MG 24 hr 00 :00 total) by [facility] tablet mouth daily. spironolact 2021- Yes 25mg QD Take [address] one 3-10 03-10 tablet (25 [facility] - (ALDACTONE) 00:00: 23:59 mg total) Medical 25 MG 00 :00 by mouth Center tablet daily. aspirin 81 2021- Yes 81mg QD Take [address] [facility] MG chewable 3-10 03-10 tablet (81 L ukes - tablet 00:00: 23:59 mg total) Medic al 00 :00 by mouth Center daily. calcium 2021- Yes 1000mg QD Take 2 [facility] t carbonate 3-10 03-10 tablets [facility] - (OS-RAMON) 00:00: 23:59 (1,000 mg Med ical 500 mg 00 :00 total) by Center tablet mouth daily. cholecalcif 2021- Yes 2000U QD Take [address] kathryn 2,000 3-10 03-10 tablet [facility] - unit Tab 00:00: 23:59 (2,000 Medica l 00 :00 Units Center total) by mouth daily. losartan 2021- Yes 12.5mg QD Take 0.[address] (COZAAR) 25 3-10 03-10 tablets Luke s - MG tablet 00:00: 23:59 (12.5 mg Med ical 00 :00 total) by Center mouth daily. fluticasone Yes 1{puff} Q.5D Inhale [address] propion-severo 3- puff by [facility] - meteroL 13:45: mouth via Medic al (ADVAIR) 22 inhaler 2 Center 250-50 (two) mcg/dose times diskus daily. inhaler mesalamine Yes 400mg Q.5D Take [address] (PENTASA) 3-09 mg by [facility] - 500 MG CR 13:45: mouth 2 Medic al capsule 22 (two) Center times daily. omeprazole Yes 20mg QD Take [address] (PriLOSEC) 3-09 by mouth [facility] - 20 MG 13:45: daily. Medical capsule 22 Center risedronate Yes 150mg Take [address] (ACTONEL) 3-09 mg by [facility] - 150 MG 13:45: mouth Medical tablet 22 every 30 Center (thirty) days with water on empty stomach, nothing by mouth or lie down for next 30 minutes. . loratadine- Yes 1{tbl} Q.5D Take [address] pseudoephed 3-09 tablet by Dipti es - rine 13:45: mouth 2 Medical (CLARITIN-D 22 (two) Center 12-hour) times 5-120 mg daily. per tablet cetirizine Yes 10mg Take [address] (ZyrTEC) 10 -09 by mouth Luke s - MG tablet 13:45: as needed Med ical 22 for Center Allergies. benazepril- 2020- No 1{tbl} QD Take [address] hydrochlort -02 03-09 tablet by Olive broussards - hiazide 11:54: 00:00 mouth Medical (LOTENSIN 33 :00 daily. Center HCT) 20-12.5 mg per tablet ascorbic 0 2020- No 500mg Q.5D Take [address] acid, 08-09-09 mg by [facility] - vitamin C, 11:54: 00:00 mouth 2 Med ical (ascorbic 33 :00 (two) Center acid with times myra hips) daily. 500 MG tablet acetaminoph 2020- No 1{tbl} Take [address] en-codeine 3-09 03-09 tablet by Dipti es - (TYLENOL 11:54: 00:00 mouth Medical #3) 300-30 33 :00 every 6 Center mg per (six) tablet hours as needed for Pain. apixaban Yes 5mg Q.5D Take [address] (ELIQUIS) 5 08-09 tablet (5 Dipti es - mg Tab 00:00: mg total) Medica l tablet 00 by mouth 2 Center (two) times daily. amiodarone 2021- Yes 400mg Q.5D Take [address] (PACERONE) 08-09 tablet [facility] - 400 MG 00:00: 23:59 (400 mg Medical tablet 00 :00 total) by Center mouth 2 (two) times daily. atorvastati 2021- Yes 80mg QD Take [address] n (LIPITOR) 08-09 tablet (80 L ukes - 80 MG 00:00: 23:59 mg total) Medica l tablet 00 :00 by mouth Center nightly. furosemide 2021- Yes 40mg QD Take [address] (LASIX) 40 08-09 tablet (40 Olive kes - MG tablet 00:00: 23:59 mg total) Me dical 00 :00 by mouth Center daily. Vital Signs Vital Name Observation Time Observation Value Comments Source Systolic blood 2020-08-09 122 mm[Hg] [facility] pressure 12:06:[facility] - Medical Center Diastolic blood 2020-08-09 75 mm[Hg] [facility] pressure 12:06:00 - Medical Center Heart rate 2020-08-09 83 /min [facility] 12:06:[facility] - Medical Center Body temperature 2020-08-[address] [facility] 12:06:00 - Medical Center Respiratory rate 2020-08-09 20 /min [facility] 12:06:00 - Medical Center Oxygen saturation 2020-08-09 97 /min [facility] Dipti es in Arterial blood 12:06:00 - Medical by Pulse oximetry Center Body weight 2020-08-04 118[address] [facility] 05:00:00 filing. User may - Medical not have seen Center previous data. BMI 2020-08-04 28.76 kg/m2 [facility] 05:00:00 - [facility] Body height 2020-08-[address] [facility] 02:19:00 - [facility] Procedures Procedure Date / Time Performing Clinician Source Performed BASIC METABOLIC PANEL (7) 2020-08-09 04:58:00 Shonna [facility] CBC (HEMOGRAM ONLY) 2020-08-09 04:58:00 [facility] HC ARTERIAL DOPPLER LEG 2020-08-08 10:35:00 [facility] TRANSESOPHAGEAL ECHO 2020-08-08 09:27:00 Kelvin [facility] COLOR-FLOW MAPPING 2020-08-08 08:21:15 Kelvin [facility] CONT WAVE PULSED DOPPLER 2020-08-08 08:21:15 Kelvin [facility] BASIC METABOLIC PANEL (7) 2020-08-08 04:35:00 Shonna [facility] CBC (HEMOGRAM ONLY) 2020-08-08 04:35:00 [facility] CARDIOVERSION 2020-08-07 08:46:15 [facility] BASIC METABOLIC PANEL (7) 2020-08-07 05:40:00 [facility] CBC (HEMOGRAM ONLY) 2020-08-07 05:40:00 [facility] POCT-ACT 2020-08-06 10:12:00 Margareth Michel [facility] R & L CATH (+/- SATS & 2020-08-06 09:12:00 [facility] - CARDIAC OUTPUT) [facility] BASIC METABOLIC PANEL (7) 2020-08-06 05:43:00 Shonna [facility] CBC (HEMOGRAM ONLY) 2020-08-06 05:43:00 [facility] 2D ECHO W/ DOPPLER 2020-08-05 15:12:00 [facility] (CW/PW/COLOR) [facility] MR CARDIAC WITHOUT & WITH 2020-08-05 13:20:00 [facility] BASIC METABOLIC PANEL (7) 2020-08-05 04:56:00 Satya [facility] CBC W/PLT COUNT & AUTO 2020-08-05 04:56:00 Satya [facility] CALCIUM, IONIZED 2020-08-05 04:56:00 Anand [facility] XR CHEST 2 VIEWS 2020-08-04 20:39:00 [facility] ABORH, MANUAL 2020-08-04 19:09:00 Erna Veronica [facility] POCT-GLUCOSE METER 2020-08-04 17:45:00 [facility] TYPE AND SCREEN, AUTOMATED 2020-08-04 16:34:[address] [facility] HEMOGLOBIN AND HEMATOCRIT 2020-08-04 16:33:00 Anand [facility] TROPONIN I 2020-08-04 08:46:00 [facility] BASIC METABOLIC PANEL (7) 2020-08-04 04:47:00 Satya [facility] CBC W/PLT COUNT & AUTO 2020-08-04 04:47:00 Satya [facility] SARS-COV2/RT-PCR ([facility] & 2020-08-04 01:05:00 [facility] REF LABS) [facility] APTT 2020-08-04 01:02:00 Satya [facility] PROTHROMBIN TIME/INR 2020-08-04 01:02:00 Satya [facility] HEPATIC FUNCTION PANEL 2020-08-04 01:01:00 Satya [facility] HEMOGLOBIN A1C 2020-08-04 01:01:00 Satya [facility] LIPID PANEL 2020-08-04 01:01:00 Satya [facility] MAGNESIUM 2020-08-04 01:01:00 Satya [facility] CBC W/PLT COUNT & AUTO 2020-08-04 01:01:00 Satya [facility] DIFFERENTIAL [facility] B-TYPE NATRIURETIC FACTOR 2020-08-04 01:01:00 Satya [facility] (BNP) [facility] BASIC METABOLIC PANEL (7) 2020-08-04 01:01:00 Satya [facility] URINALYSIS WITH 2020-08-04 00:51:00 [facility] IF INDICATED [facility] SODIUM, RANDOM URINE 2020-08-04 00:51:00 Satya [facility] CREATININE, RANDOM URINE 2020-08-04 00:51:00 Satya [facility] UREA NITROGEN, RANDOM 2020-08-04 00:51:00 Satya [facility] URINE [facility] URINALYSIS MICROSCOPIC 2020-08-04 00:51:00 Satya [facility] CARDIAC CATH REPORT - SCAN 2020-08-03 00:00:00 Provider, George [facility] Scanning [facility] REPORT OF PROCEDURE - 2020-08-03 00:00:00 Provider, George [facility] ENDOSCOPY SCAN [facility] Plan of Care Planned Activity Planned Date Details Comments Source Future Scheduled Test 2020-06-[address] [facility] - 00:00:00 (12+) [code = [facility] DEPRESSION SCREENING (12+)] Future Scheduled Test 2020-06-03 Medicare IPPE (WELCOME [facility] - 00:00:00 TO MEDICARE) [code = Medical Center Medicare IPPE (WELCOME TO MEDICARE)] Future Scheduled Test 2020-02-02 INFLUENZA VACCINE (#1) [facility] - 00:00:00 [code = INFLUENZA Medical Ce nter VACCINE (#1)] Future Scheduled Test 2011-11-06 PNEUMOCOCCAL 65+ YRS [facility] - 00:00:00 (1 of 1 - Medical Center [id number] PCV13) [code = PNEUMOCOCCAL 65+ YRS (1 of 1 - [id number] PCV13)] Future Scheduled Test 1996 SHINGLES VACCINES ([address] [facility] - 00:00:00 of 2) [code = SHINGLES Medic al Center VACCINES (1 of 2)] Future Scheduled Test 1965 DTAP/TDAP/TD VACCINES [facility] - 00:00:00 (1 - Tdap) [code = Medical C enter DTAP/TDAP/TD VACCINES (1 - Tdap)] Future Scheduled Test 1964 HEPATITIS C [facility]CRE[facility]ING [facility] - 00:00:00 [code = HEPATITIS C [facility] SCREENING] Future Scheduled Test 1945 [facility] colon (procedure) [code = 268004812] Future Appointment 2020-09-[address] [facility] - 10:32:00 , [address] [place] [address] Future Appointment 2020-09-[address] [facility] - 10:32:00 , [address] [place] [address] Results Test Description Test Test Results Result Source Time Comments Comments CARDIAC CATH REPORT 2020-08- Ordered by an I St - SCAN 11 unspecified provider. 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 No LA/EYAD thrombus visualized. IV saline contrast injection was negative for a PFO (patent foramen ovale) at rest . Moderate mitral regurgitation due to leaflet tethering. MR regurgitant orifice (PISA) is in the range of 0.2 cm2. Regurgitant volume=34 cm2. Estimated peak systolic PA pressure is 25-30 mmHg + RA pressure. DCCV performed with successful conversion to SR. Signature Findings Rhythm/BP Atrial fibrillation with rapid ventricular response. Left Ventricle Global LV systolic function appears severely depressed. Left Atrium LA is enlarged. No LA/EYAD thrombus visualized. Right RV chamber size is mildly enlarged . Ventricle Global RV systolic function is mildly reduced . Right Atrium RA appears normal. Atrial Septum IV saline contrast injection was negative for a PFO (patent foramen ovale) at rest . Aortic Valve Mild AoV cusp thickening. Normal AoV function. Mitral Valve Mild MV leaflet thickening. Moderate mitral regurgitation due to leaflet tethering. MR regurgitant orifice (PISA) is in the range of 0.2 cm2. Regurgitant volume=34 cm2 Tricuspid Normal TV structure and function by available views and Valve Doppler. A trace of tricuspid regurgitation.\\ Estimated peak systolic PA pressure is 25-30 mmHg + RA pressure. Pulmonic Valve Normal PV structure and function by limited views and Doppler. Aorta Aortic root size (SInus of Valsalva diameter) is borderline dilated . Proximal ascending aorta size is normal . Pericardium No significant pericardial effusion is visualized. Doppler/Quantitative Measurements Mitral Valve PISA Radius: 0.71 cm MR Velocity: 54.2 m/s Alias Velocity: 3.48 m/s MR VTI: 170 cm MR ERO (PISA): 0.2 cm^2 MV EROA (PISA): 3.17 cm^2 MR Flow Rate (PISA): 1103.16 ml/s MV Reg vol (PISA):34 ml MV Colby. Peak: Basic Metabolic Panel 2020-08-09 06:07:00 Test Item Value Reference Range Interpretation Comme nts Sodium (test code = 141 meq/L 216-580 9081-2) Potassium (test code = 3.7 meq/L 3.5-5.1 2823-3) Chloride (test code = 108 meq/L 98-107 H 5-0) CO2 (test code = 2027-9) 24 meq/L 22-29 BUN (test code = 3094-0) 21 mg/dL 7-21 Creatinine (test code = 1.07 mg/dL 0.57-1.25 2160-0) Glucose (test code = 104 mg/dL 70-105 2345-7) Calcium (test code = 7.7 mg/dL 8.4-10.2 L 53285-0) EGFR (test code = 82441-6) 68 mL/min/1.73 sq m ESTIMATED GFR IS NOT ACCURATE CREATININE FAROOQ BRIDGES IN PREDICTING GLOMERULAR FILT RATION RATE. ESTIMATED GFR IS NOT APPLICAB LE FOR DIALYSIS PATIEN JESUS (test code = JESUS) Repairer And Checker ID - ADMIN Lab Interpretation (test Abnormal code = 19921-0) [facility] METABOLIC [id number] 06:07:00 Test Item Value Reference Range Interpretation Comments SODIUM (BEAKER) 141 meq/L 136-145 (test code = 381) POTASSIUM (BEAKER) 3.7 meq/L 3.5-5.1 (test code = 379) CHLORIDE (BEAKER) 108 meq/L 98-107 H (test code = 382) CO2 (BEAKER) (test 24 meq/L 22-29 code = 355) BLOOD UREA NITROGEN 21 mg/dL 7-21 (BEAKER) (test code = 354) CREATININE (BEAKER) 1.07 mg/dL 0.57-1.25 (test code = 358) GLUCOSE RANDOM 104 mg/dL 70-105 (BEAKER) (test code = 652) CALCIUM (BEAKER) 7.7 mg/dL 8.4-10.2 L (test code = 697) EGFR (BEAKER) (test 68 mL/min/1.73 ESTIMA ANTELMO GFR IS code = 1092) sq m NOT ACCURATE CREATININE CLEARANCE IN PREDICTING GLOMERULAR FILTRATION RATE . ESTIMATED GFR I S NOT APPLICABLE FOR DIALYSIS PATIEN TS. Repairer And Checker ID - ADMINCBC (hemogram only)2020-08-09 05:33:00 Test Item Value Reference Range Interpretation Comments WBC (test code = 6690-2) 10.1 See_Comment [A utomated message] The system [employer] generated this result transmitted ref erence range: 3.5 - 10 .5 K/L. The refe rence range was not u sed to interpret this result as normal/abnor mal. RBC (test code = 789-8) 4.04 See_Comment L [Au tomated message] The system [employer] generated this result transmitted ref erence range: 4.63 - 6 .08 M/L. The refe rence range was not u sed to interpret this result as normal/abnor mal. MCHC (test code = 786-4) 31.7 See_Comment L [A utomated message] The system [employer] generated this result transmitted ref erence range: 32.3 - 3 6.5 GM/DL. The refe rence range was not u sed to interpret this result as normal/abnor mal. Hematocrit (test code = 39.1 % 40.1-51 L 4544-3) MCV (test code = 787-2) 96.8 fL 79-92.2 H MCH (test code = 785-6) 30.7 pg 25.7-32.2 RDW (test code = 788-0) 14.5 % 11.6-14.4 H Platelets (test code = 170 See_Comment [Aut omated message] 777-3) The system [employer] generated this result transmitted ref erence range: 150 - 45 0 K/CU MM. The referen ce range was not u sed to interpret this result as normal/abnor mal. MPV (test code = 9.9 fL 9.4-12.4 84204-0) nRBC (test code = 413) 0 See_Comment [Aut omated message] The system [employer] generated this result transmitted ref erence range: 0 - 0 /1 00 WBC. The refere nce range was not u sed to interpret this result as normal/abnor mal. Lab Interpretation (test Abnormal code = 60834-7) [facility] (HEMOGRAM ONLY)2020-08-09 05:33:00 Test Item Value Reference Range Interpretation Comments WHITE BLOOD CELL COUNT (BEAKER) 10.1 K/ L 3.5-10.5 (test code = 775) RED BLOOD CELL COUNT (BEAKER) 4.04 M/ L 4.63-6.08 L (test code = 761) HEMOGLOBIN (BEAKER) (test code = 12.4 GM/DL 13.7-17.5 L 410) HEMATOCRIT (BEAKER) (test code = 39.1 % 40.1-51.0 L 411) MEAN CORPUSCULAR VOLUME (BEAKER) 96.8 fL 79.0-92.2 H (test code = 753) MEAN CORPUSCULAR HEMOGLOBIN 30.7 pg 25.7-32.2 (BEAKER) (test code = 751) MEAN CORPUSCULAR HEMOGLOBIN CONC 31.7 GM/DL 32.3-36.5 L (BEAKER) (test code = 752) RED CELL DISTRIBUTION WIDTH 14.5 % 11.6-14.4 H (BEAKER) (test code = 412) PLATELET COUNT (BEAKER) (test 170 K/CU MM 150-450 code = 756) MEAN PLATELET VOLUME (BEAKER) 9.9 fL 9.4-12.4 (test code = 754) NUCLEATED RED BLOOD CELLS 0 /100 WBC 0-0 (BEAKER) (test code = 413) Pseudoaneurysm Groin Doppler [id number] 19:53:46Ejection FractionSLE ECHO HEARTLAB MKCKESSON CPACSRight Impression1. There is no pseudoaneurysm visu alized.2. There is no hematoma visualized.3. There is no venous obstruction or arteriovenous fistulavisualized.4. The common femoral artery flow is triphasic with a velocity of 56.2cm/sec. (within normal range). Conclusions Summary Duplex imaging of the right groin area was performed. The vessels were adequately visualized. There was no evidence of a pseudoaneurysm, venous obstruction or arteriovenous fistula in the right groin area. Signature Velocities are measured in cm/s ; Diameters are measured in cm Interface, External Ris In - 08/08/2020 7:54 PM CSTPV LAB - Pseudoaneurysm Survey Demographics Patient Name KOBY JIMENEZ Date of Study 08/08/2020 R Age 74 Visit Number [id number] Gender Male Accession Number [id number] Date of 1945 Referring Shonna Otero Room Number 1442 Physician Teacher [employer] Nia Rivera Interpreting Sridevi Pham MD RVT Physician ProcedureType of Study: Pseudoaneurysm: PSEUDOANEURYSM, GROIN DOPPLER RIGHT. Indications for Study:Assess for pseudoaneurysm or bleeding site.Patient Status:NATALIA.Study Location:Vascular Lab.Technical Quality:Adequate visualization.Risk FactorsHistory of Disease+ +----+ +!Diagnosis !Date!Comments !+- +----+ +!Histo ry/Risk Factors: ! !afib, chf, cad, htn !+ +----+ +ImpressionsRight Impression1. There is no pseudoaneurysm visualized.2. Thereis no hematoma visualized.3. There is no venous obstruction or arteriovenous fistula visualized.4. The common femoral artery flow is triphasic with a velocity of 56.2cm/sec. (within normal range). Conclusions Summary Duplex imaging of the right groin area was performed. The vessels were adequately visualized. There was no evidence of a pseudoaneurysm, venous obstruction or arteriovenous fistula in the right groin area. Signature Velocities are measured in cm/s ; Diameters aremeasured in [facility] METABOLIC [id number] 05:53:00 Test Item Value Reference Range Interpretation Comments SODIUM (BEAKER) 140 meq/L 136-145 (test code = 381) POTASSIUM (BEAKER) 3.8 meq/L 3.5-5.1 (test code = 379) CHLORIDE (BEAKER) 107 meq/L 98-107 (test code = 382) CO2 (BEAKER) (test 24 meq/L 22-29 code = 355) BLOOD UREA NITROGEN 23 mg/dL 7-21 H (BEAKER) (test code = 354) CREATININE (BEAKER) 1.00 mg/dL 0.57-1.25 (test code = 358) GLUCOSE RANDOM 110 mg/dL 70-105 H (BEAKER) (test code = 652) CALCIUM (BEAKER) 7.7 mg/dL 8.4-10.2 L (test code = 697) EGFR (BEAKER) (test 73 mL/min/1.73 ESTIMA ANTELMO GFR IS code = 1092) sq m NOT ACCURATE CREATININE CLEARANCE IN PREDICTING GLOMERULAR FILTRATION RATE . ESTIMATED GFR I S NOT APPLICABLE FOR DIALYSIS PATIEN TS. Repairer And Checker ID - [id number] (HEMOGRAM ONLY)2020-08-08 05:24:00 Test Item Value Reference Range Interpretation Comments WHITE BLOOD CELL COUNT (BEAKER) 9.9 K/ L 3.5-10.5 (test code = 775) RED BLOOD CELL COUNT (BEAKER) 4.25 M/ L 4.63-6.08 L (test code = 761) HEMOGLOBIN (BEAKER) (test code = 12.9 GM/DL 13.7-17.5 L 410) HEMATOCRIT (BEAKER) (test code = 40.6 % 40.1-51.0 411) MEAN CORPUSCULAR VOLUME (BEAKER) 95.5 fL 79.0-92.2 H (test code = 753) MEAN CORPUSCULAR HEMOGLOBIN 30.4 pg 25.7-32.2 (BEAKER) (test code = 751) MEAN CORPUSCULAR HEMOGLOBIN CONC 31.8 GM/DL 32.3-36.5 L (BEAKER) (test code = 752) RED CELL DISTRIBUTION WIDTH 14.4 % 11.6-14.4 (BEAKER) (test code = 412) PLATELET COUNT (BEAKER) (test 195 K/CU MM 150-450 code = 756) MEAN PLATELET VOLUME (BEAKER) 9.7 fL 9.4-12.4 (test code = 754) NUCLEATED RED BLOOD CELLS 0 /100 WBC 0-0 (BEAKER) (test code = 413) BASIC METABOLIC [id number] 06:26:00 Test Item Value Reference Range Interpretation Comments SODIUM (BEAKER) 140 meq/L 136-145 (test code = 381) POTASSIUM (BEAKER) 3.8 meq/L 3.5-5.1 (test code = 379) CHLORIDE (BEAKER) 109 meq/L 98-107 H (test code = 382) CO2 (BEAKER) (test 22 meq/L 22-29 code = 355) BLOOD UREA NITROGEN 25 mg/dL 7-21 H (BEAKER) (test code = 354) CREATININE (BEAKER) 0.93 mg/dL 0.57-1.25 (test code = 358) GLUCOSE RANDOM 134 mg/dL 70-105 H (BEAKER) (test code = 652) CALCIUM (BEAKER) 7.4 mg/dL 8.4-10.2 L (test code = 697) EGFR (BEAKER) (test 80 mL/min/1.73 ESTIMA ANTELMO GFR IS code = 1092) sq m NOT ACCURATE CREATININE CLEARANCE IN PREDICTING GLOMERULAR FILTRATION RATE . ESTIMATED GFR I S NOT APPLICABLE FOR DIALYSIS PATIEN TS. Repairer And Checker ID - HERBIE [facility] (HEMOGRAM ONLY)2020-08-07 06:02:00 Test Item Value Reference Range Interpretation Comments WHITE BLOOD CELL COUNT (BEAKER) 9.7 K/ L 3.5-10.5 (test code = 775) RED BLOOD CELL COUNT (BEAKER) 4.29 M/ L 4.63-6.08 L (test code = 761) HEMOGLOBIN (BEAKER) (test code = 13.1 GM/DL 13.7-17.5 L 410) HEMATOCRIT (BEAKER) (test code = 40.6 % 40.1-51.0 411) MEAN CORPUSCULAR VOLUME (BEAKER) 94.6 fL 79.0-92.2 H (test code = 753) MEAN CORPUSCULAR HEMOGLOBIN 30.5 pg 25.7-32.2 (BEAKER) (test code = 751) MEAN CORPUSCULAR HEMOGLOBIN CONC 32.3 GM/DL 32.3-36.5 (BEAKER) (test code = 752) RED CELL DISTRIBUTION WIDTH 14.4 % 11.6-14.4 (BEAKER) (test code = 412) PLATELET COUNT (BEAKER) (test 208 K/CU MM 150-450 code = 756) MEAN PLATELET VOLUME (BEAKER) 9.6 fL 9.4-12.4 (test code = 754) NUCLEATED RED BLOOD CELLS 0 /100 WBC 0-0 (BEAKER) (test code = 413) MR, CARDIAC, [id number] 18:43:00With viability studyUnlisted Reason for Exam - Click Yes and Enter Reason Below->NoWith viabilitystudy [facility] : 1945 Sex: MFINAL REPORT Cardiovascular MRI - Chest: 08/05/2020 1:22 PM. Comparison : None available. Clinical History: 74 years old Male with Afib and Crohn's disease, presented to an OSH on 08/01 with chest pain concerning for unstable angina, for which he underwent SCA which reported 70-80% ostial LM disease, for which he was transferred here for further intervention options. Indication: This study is performed to assess myocardial damage, viability, and to quantitate left ventricular and valvular function. Technique: Stephanie Achieva 1.5 Hailey MRI scanner.* Turbo spin echo andgradient echo imaging for anatomic definition.* Dynamic cine imaging for cardiac chamber, wall-motion, and valvular analysis.* Flow quantification sequences for hemodynamics.* Navigator-gated, whole-heart coronary MRA sequence for cardiac chamber anatomy and coronary artery origins.* T2 weighted STIR imaging (with triple IR preparation) for edema analysis.* Delayed gadolinium-enhancement analysis (inversion recovery gradient echo sequence) after injection of gadolinium-chelate (15 cc of Gadavist). RE SULT: Potential study limitations: None. CHEST: The chest wall is unremarkable. The mediastinum appears normal. No significant adenopathy is identified. This study was not optimized to assess the lungs however, limited imaging reveals moderate to small right and small left pleural effusion. The pu lmonary arteries appear normal (main PA: 3.0 cm). There is trivial pericardial effusion noted. VASCULAR:The aortic root is symmetric. The sinotubular junction is preserved. The ascending thoracic aorta and aortic arch: Normal in course, caliber and contour. The arch vessel branching pattern is normal. The imaged arch branch vessels are patent proximally. The descending thoracic aorta: Normal incourse, caliber and contour. There is no acute aortic pathology, such as dissection, intramural hematoma, or contained rupture. CARDIAC CHAMBERS:The cardiac chambers have normal atrioventricular and ventriculoarterial concordance, as well as normal systemic and pulmonary venous return. The cardiac chamber sizes are severe left and moderate right atrial enlargement. Left Ventricle:The left ventricle is normal in size for BSA, and has severely reduced systolic function. The left ventricular myocardiumis normal in thickness. Quantitative left ventricular functional values are as follows:EDV = 237 cc ( normal 115-198 cc); EDVi = 92 cc/m2 (normal 63-98 cc/m2).ESV = 187 cc (normal 30-75 cc); ESVi = 72 cc/m2 (normal 16-38 cc/m2).Stroke volume = 49 cc (normal 76-132 cc); SVi = 19 cc/m2 (normal 41-65 cc/m2).LVEF = 21 % (normal 55- 75%).Cardiac Output = 5.1 l/min.; Cardiac Index = 2.0 l/min/m2.LV mass = 176 gm (normal 108-184 gm); LVMi = 68 gm/m2 (normal 58-91 gm/m2). There is no increased myocardial signal intensity on T2 STIR imaging to suggest myocardial inflammation or edema. Delayed-enhancement imaging reveals uniformly "nulled" myocardium, signifying that there has been no prior ischemicmyocardial damage. There is also no definite evidence of interstitial fibrosis to suggest an infiltrative process. No mural or apical left ventricular thrombus is identified. Right ventricle:The right ventricle is normal in size and shape, and has moderately reduced systolic function. Quantitative right ventricular functional values are as follows:EDV = 165 cc (normal 113-213 cc); EDVi = 64 cc/m2 (normal 60-106 cc/m2).ESV = 105 cc (normal 27-86 cc); ESVi = 41 cc/m2 (normal 14-43 cc/m2).Stroke volume = 59 cc (normal 72-140 cc); SVi = 23 cc/m2 (normal 38-70 cc/m2).RVEF = 36 % (normal 53-78%).Cardiac Output = 6.1 l/min.; Cardiac Index = 2.4 l/min/m2. VALVES:The mitral valve is mildly thickened. There is moderate imaged mitral regurgitation. Atrial fibrillation limiting the precise volumetricanalysis of mitral regurgitation. The aortic valve is trileaflet. There is trivial imaged aortic regurgitation.Flow quantification through the ascending aorta:*Forward volume: 47 cc/beat*Reverse volume: 1 cc/beat*Net forward volume: 46 cc/beat*Aortic regurgitant fraction: 2 % The tricuspid valve is mildly thickened. There is mild imaged tricuspid regurgitation. ABDOMEN:Limited imaging through the upper abdomen reveals no abnormalities of the imaged organs. IMPRESSION: The constellation of findings is most suggestive of a dilated, non-ischemic cardiomyopathy. 1. Normal left ventricular size withreduced global systolic function (LVEF: 21%, LVEDVi: 92 cc/m2). No discrete myocardial fibrosis on delayed-enhancement imaging to suggest an infiltrative process or prior ischemic injury. No mural or apical left ventricular thrombus is identified. 2. Normal right ventricular size and has moderately reduced systolic function. (RVEF: 36%; RVEDVi: 64 cc/m2). 3. Severe left and moderate right atrial enlargement. Moderate imaged mitral valve regurgitation. Signed: Edouard Gatica [facility] Verified Date/Time: 08/06/2020 18:43:25 MR cardiac without & with IV [id number] 18:43:00Interface, External Ris In - 08/06/2020 6:45 PM CSTFINAL REPORT Cardiovascular MRI - Chest: 08/05/2020 1:22 PM. Comparison: None available. Clinical History: 74 years old Male with Afib and Crohn's disease, presented to an OSH on 08/01 with chest pain concerning for unstable angina, for which he underwent SCA which reported 70-80% ostial LM disease, for which he was transferredhere for further intervention options. Indication: This study is performed to assess myocardial damage, viability, and to quantitate left ventricular and valvular function. Technique: Stephanie Achieva1.5 Hailey MRI scanner.* Turbo spin echo and gradient echo imaging for anatomic definition.* Dynamic cine imaging for cardiac chamber, wall-motion, and valvular analysis.* Flow quantification sequences for hemodynamics.* Navigator-gated, whole-heart coronary MRA sequence for cardiac chamber anatomy andcoronary artery origins.* T2 weighted STIR imaging (with triple IR preparation) for edema analysis.* Delayed gadolinium-enhancement analysis (inversion recovery gradient echo sequence) after injection of gadolinium-chelate (15 cc of Gadavist). RESULT: Potential study limitations: None. CHEST: The chest wall is unremarkable. The mediastinum appears normal. No significant adenopathy is identified.This study was not optimized to assess the lungs however, limited imaging reveals moderate to small right and small left pleural effusion. The pulmonary arteries appear normal (main PA: 3.0 cm). There is trivial pericardial effusion noted. VASCULAR:The aortic root is symmetric. The sinotubular junction is preserved. The ascending thoracic aorta and aortic arch: Normal in course, caliber and contour. The arch vessel branching pattern is normal. The imaged arch branch vessels are patent proximally. The descending thoracic aorta: Normal in course, caliber and contour. There is no acute aortic pathology, such as dissection, intramural hematoma, or contained rupture. CARDIAC CHAMBERS:The cardiac chambers have normal atrioventricular and ventriculoarterial concordance, as well as normal systemic and pulmonary venous return. The cardiac chamber sizes are severe left and moderate right atrial enlargement. Left Ventricle:The left ventricle is normal in size for BSA, and has severely reduced systolic function. The left ventricular myocardium is normal in thickness. Quantitative left ventricular functional values are as follows:EDV = 237 cc (normal 115-198 cc); EDVi = 92 cc/m2 (normal 63-98 cc/m2).ESV = 187 cc (normal 30-75 cc); ESVi = 72 cc/m2 (normal 16-38 cc/m2).Stroke volume = 49 cc (normal 76-132 cc); SVi = 19 cc/m2 (normal 41-65 cc/m2).LVEF = 21 % (normal 55- 75%).Cardiac Output = 5.1l/min.; Cardiac Index = 2.0 l/min/m2.LV mass = 176 gm (normal 108-184 gm); LVMi = 68 gm/m2 (normal 58-91 gm/m2). There is no increased myocardial signal intensity on T2 STIR imaging to suggest myocardial inflammation or edema. Delayed-enhancement imaging reveals uniformly "nulled" myocardium, signifying that there has been no prior ischemic myocardial damage. There is also no definite evidence ofinterstitial fibrosis to suggest an infiltrative process. No mural or apical left ventricular thrombus is identified. Right ventricle:The right ventricle is normal in size and shape, and has moderatelyreduced systolic function. Quantitative right ventricular functional values are as follows:EDV = 165cc (normal 113-213 cc); EDVi = 64 cc/m2 (normal 60-106 cc/m2).ESV = 105 cc (normal 27-86 cc); ESVi = 41 cc/m2 (normal 14-43 cc/m2).Stroke volume = 59 cc (normal 72-140 cc); SVi = 23 cc/m2 (bbygpt44-98 cc/m2).RVEF = 36 % (normal 53-78%).Cardiac Output = 6.1 l/min.; Cardiac Index = 2.4 l/min/m2. VALVES:The mitral valve is mildly thickened. There is moderate imaged mitral regurgitation. Atrial fibrillation limiting the precise volumetric analysis of mitral regurgitation. The aortic valve is tri leaflet. There is trivial imaged aortic regurgitation.Flow quantification through the ascending aorta:*Forward volume: 47 cc/beat*Reverse volume: 1 cc/beat*Net forward volume: 46 cc/beat*Aortic regurgitant fraction: 2 % The tricuspid valve is mildly thickened. There is mild imaged tricuspid regurgita tion. ABDOMEN:Limited imaging through the upper abdomen reveals no abnormalities of the imaged organs. IMPRESSION: The constellation of findings is most suggestive of a dilated, non-ischemic cardiomyopathy. 1. Normal left ventricular size with reduced global systolic function (LVEF: 21%, LVEDVi: 92 c c/m2). No discrete myocardial fibrosis on delayed-enhancement imaging to suggest an infiltrative process or prior ischemic injury. No mural or apical left ventricular thrombus is identified. 2. Normalright ventricular size and has moderately reduced systolic function. (RVEF: 36%; RVEDVi: 64 cc/m2).3. Severe left and moderate right atrial enlargement. Moderate imaged mitral valve regurgitation. Signed: Edouard Gatica Verified Date/Time: 08/06/2020 18:43:25 [facility] ACTIVATED CLOTTING [id number] 10:32:00 Test Item Value Reference Range Interpretation Comments Activated Clotting Time 246 sec : 74 -137 seconds, (test code = 441) Baseline: TESTED AT [address], [address]: Repairer And Checker/Techni theodore ID = [id number] for NIRAJ LENZ [facility]-[id number] 10:32:00 Test Item Value Reference Range Interpretation Comments ACTIVATED CLOTTING TIME 246 sec : 74 -137 seconds, (BEAKER) (test code = Baseli ne: TESTED AT [facility]) [address], [address]: Repairer And Checker/Techni theodore ID = [id number] for NIRAJ ELNZ BASIC METABOLIC [id number] 07:09:00 Test Item Value Reference Range Interpretation Comments SODIUM (BEAKER) 139 meq/L 136-145 (test code = 381) POTASSIUM (BEAKER) 3.9 meq/L 3.5-5.1 (test code = 379) CHLORIDE (BEAKER) 106 meq/L 98-107 (test code = 382) CO2 (BEAKER) (test 23 meq/L 22-29 code = 355) BLOOD UREA NITROGEN 24 mg/dL 7-21 H (BEAKER) (test code = 354) CREATININE (BEAKER) 0.96 mg/dL 0.57-1.25 (test code = 358) GLUCOSE RANDOM 115 mg/dL 70-105 H (BEAKER) (test code = 652) CALCIUM (BEAKER) 7.5 mg/dL 8.4-10.2 L (test code = 697) EGFR (BEAKER) (test 77 mL/min/1.73 ESTIMA ANTELMO GFR IS code = 1092) sq m NOT ACCURATE CREATININE CLEARANCE IN PREDICTING GLOMERULAR FILTRATION RATE . ESTIMATED GFR I S NOT APPLICABLE FOR DIALYSIS PATIEN TS. Repairer And Checker ID - [id number] (HEMOGRAM ONLY)2020-08-06 06:31:00 Test Item Value Reference Range Interpretation Comments WHITE BLOOD CELL COUNT (BEAKER) 10.4 K/ L 3.5-10.5 (test code = 775) RED BLOOD CELL COUNT (BEAKER) 4.45 M/ L 4.63-6.08 L (test code = 761) HEMOGLOBIN (BEAKER) (test code = 13.5 GM/DL 13.7-17.5 L 410) HEMATOCRIT (BEAKER) (test code = 42.7 % 40.1-51.0 411) MEAN CORPUSCULAR VOLUME (BEAKER) 96.0 fL 79.0-92.2 H (test code = 753) MEAN CORPUSCULAR HEMOGLOBIN 30.3 pg 25.7-32.2 (BEAKER) (test code = 751) MEAN CORPUSCULAR HEMOGLOBIN CONC 31.6 GM/DL 32.3-36.5 L (BEAKER) (test code = 752) RED CELL DISTRIBUTION WIDTH 14.1 % 11.6-14.4 (BEAKER) (test code = 412) PLATELET COUNT (BEAKER) (test 207 K/CU MM 150-450 code = 756) MEAN PLATELET VOLUME (BEAKER) 9.6 fL 9.4-12.4 (test code = 754) NUCLEATED RED BLOOD CELLS 0 /100 WBC 0-0 (BEAKER) (test code = 413) 2D Echo W/Doppler(CW/PW/Color)2020-08-05 18:05:39Ejection FractionSLEH ECHO HEARTLAB MKCKESSON CPACSInterface, External Ris In - 08/05/2020 6:05 PM C STTransthoracic Echocardiography Report (TTE) Demographics Patient Name KOBY JIMENEZ Date of Study 08/05/2020 R Gender Male Visit Number [id number] Race Unknown Room Number 654 Number Date of 1945 Referring 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 Amount - 2 mlHeight: 78 inches Weight: 118.39 kg (261 lbs) BSA: 2.53 m^2 BMI: 30.16kg/m^2HR: 90 bpm BP: 115/79 mmHg Summary Global LV systolic function severely reduced . LVEF by Torres's method ofdisk assessment is severely reduced (25-29%). The left ventricle is chamber size (by vol index) is mildly enlarged (male - LVED 75 ml/m2). The following segment(s) appear akinetic: septum, mid to apical anterior, apical septum . The following segment(s) appear severely hypokinetic: mid inferior, inferoseptum . The following segment(s) appear mildly hypokinetic: basal to mid inferolateral . LA size ismoderately enlarged (42-48 ml/m2) . Estimated peak systolic PA pressure is 45-50 mmHg (mild pulmonary hypertension) . The right ventricular chamber size appears normal by limited views. RV is partiallyvisualized. Cannot assess RV systolic function due to limited views. An echo lucent space is noted anterior to RV free wall by limited subcostal views. Cannot exclude possible loculated effusion. Previous Study No prior exam available for comparison. Dr. Kilpatrick informed of above findings. Signature - Findings Left Ventricle Global LV systolic function severely reduced . LVEF by Torres's method of disk assessment is severely reduced (25-29%). The left ventricle is chamber size (by vol index) is mildly enlarged (male - LVED 75 ml/m2). The following segment(s) appear akinetic: septum, mid to apical anterior, apical septum . The following segment(s) appear severely hypokinetic: mid inferior, inferoseptum . The following segment(s) appear mildly hypokinetic: basal to mid inferolateral, basal to mid lateral. The other segments are hypokinetic. Diastolic dysfunction is likely due to concomitant heart disease. Degree of diastolic dysfunction (LAP assessment) is inconclusive due to significant MR . Left Atrium LA sizeis moderately enlarged (42-48 ml/m2) . Right Ventricle The right ventricular chamber size appears normal by limited views. RV is partially visualized. Cannot assess RV systolic function due to limited views. Right Atrium RA cavity size is normal . Aortic Valve Mild AoV cusp thickening. Mitral Valve Mild MV leaflet thickening. Moderate to severe mitral regurgitation. MR severity is difficult to determine due to jet eccentricity(posteriorly directed). The mechanism for MR is leaflet tethering . Tricuspid Valve TV structure is normal. Trace tricuspid regurgitation. Estimated peak systolic PA pressure is 45-50 mmHg (mild pulmonary hypertension) . Pulmonic Valve PV is not well visualized. Aorta Aortic root size (SInus of Valsalva diameter) is borderline dilated . Proximal ascending aorta size is indeterminate (not well seen). . Pericardium An echo lucent space is noted anterior to RV free wall by limited subcostal views. Cannot exclude possible loculated effusion. IVC/SVC/PA/PV/Pleural The estimated RA pressure by IVC dynamics 16-20mmHg . Chambers/Structures Left Atrium LA Volume: 108.81 ml LA Area: 27.37 cm^2 LA Vol. Index:43 ml/m^2 Left Ventricle LVIDd: 6.13 cm LVEDV:189.22 ml LV Septum Diastolic: 1 cm LV PW Diastolic: 0.8 cm LVEDV Torres's:191.6 ml LVESV Torres's:143.78 ml LVEF Torres's: 25.2 % LVEDVI: 76 ml/m^2 LVESVI: 57 ml/m^2 LVOT Diameter: 2.33 cm Right Ventricle RVOT VTI: 10.93 cm Doppler/Quantitative Measurements Mitral Valve PISA Radius: 0.67 cm MR Velocity: 5.11 m/s MR VTI: 150.39 cm MV EROA (PISA): 2.82 cm^2 MV Colby. Peak: Aortic Valve Peak Velocity: 0.84 m/s Mean Velocity: 0.61 m/s Peak Gradient: 2.8 mmHg Mean Gradient: 1.66 mmHg AV Area (continuity): 3.99 cm^2 AV VTI: 13.04 cm AV DVI: 0.94 LVOT Peak Velocity: 0.72 m/s Peak Gradient: 2.1 mmHg Mean Velocity: 0.58 m/s Mean Gradient: 1.43 mmHg LVOT Diameter: 2.33 cm LVOT VTI: 12.2 cm LVOT Area: 4.26cm^2 LVOT SV:51.99 ml LVOT CO: 4.68 l/min LVOT CI: 1.85 l/min/m^2 Tricuspid Valve TR Velocity: 2.57 m/s TR Gradient: 26.33 mmHgMendocino State HospitalCalcium, [id number] 05:46:00 Test Item Value Reference Range Interpretation Comments Calcium, Ion (test code = 1993-08) 1.05 mmol/L 1.12-1.27 L pH, Blood (test code = 60566-1) 7.48 Lab Interpretation (test code = Abnormal 91512-6) [facility] [id number] 05:46:00 Test Item Value Reference Range Interpretation Comments CALCIUM IONIZED (BEAKER) (test 1.05 mmol/L 1.12-1.27 L code = 698) PH, BLOOD (BEAKER) (test code = 7.48 1810) BASIC METABOLIC [id number] 05:44:00 Test Item Value Reference Range Interpretation Comments SODIUM (BEAKER) 139 meq/L 136-145 (test code = 381) POTASSIUM (BEAKER) 3.8 meq/L 3.5-5.1 (test code = 379) CHLORIDE (BEAKER) 103 meq/L 98-107 (test code = 382) CO2 (BEAKER) (test 26 meq/L 22-29 code = 355) BLOOD UREA NITROGEN 30 mg/dL 7-21 H (BEAKER) (test code = 354) CREATININE (BEAKER) 1.10 mg/dL 0.57-1.25 (test code = 358) GLUCOSE RANDOM 129 mg/dL 70-105 H (BEAKER) (test code = 652) CALCIUM (BEAKER) 7.5 mg/dL 8.4-10.2 L (test code = 697) EGFR (BEAKER) (test 66 mL/min/1.73 ESTIMA ANTELMO GFR IS code = 1092) sq m NOT ACCURATE CREATININE CLEARANCE IN PREDICTING GLOMERULAR FILTRATION RATE . ESTIMATED GFR I S NOT APPLICABLE FOR DIALYSIS PATIEN TS. Repairer And Checker ID - [id number] with platelet count + automated [id number] 05:37:00 Test Item Value Reference Range Interpretation Comments WBC (test code = 6690-2) 10.7 See_Comment H [A utomated message] The system [employer] generated this result transmitted ref erence range: 3.5 - 10 .5 K/L. The refe rence range was not u sed to interpret this result as normal/abnor mal. RBC (test code = 789-8) 4.54 See_Comment L [Au tomated message] The system [employer] generated this result transmitted ref erence range: 4.63 - 6 .08 M/L. The refe rence range was not u sed to interpret this result as normal/abnor mal. MCHC (test code = 786-4) 32.0 See_Comment L [A utomated message] The system [employer] generated this result transmitted ref erence range: 32.3 - 3 6.5 GM/DL. The refe rence range was not u sed to interpret this result as normal/abnor mal. Hematocrit (test code = 43.1 % 40.1-51 4544-3) MCV (test code = 787-2) 94.9 fL 79-92.2 H MCH (test code = 785-6) 30.4 pg 25.7-32.2 RDW (test code = 788-0) 13.8 % 11.6-14.4 Platelets (test code = 237 See_Comment [Aut omated message] 827-3) The system [employer] generated this result transmitted ref erence range: 150 - 45 0 K/CU MM. The referen ce range was not u sed to interpret this result as normal/abnor mal. MPV (test code = 9.6 fL 9.4-12.4 11610-1) nRBC (test code = 413) 0 See_Comment [Aut omated message] The system [employer] generated this result transmitted ref erence range: 0 - 0 /1 00 WBC. The refere nce range was not u sed to interpret this result as normal/abnor mal. % Neutros (test code = 61 % 429) % Lymphs (test code = 30 % 430) % Monos (test code = 8 % 431) % Eos (test code = 432) 1 % % Baso (test code = 437) 0 % # Neutros (test code = 6.52 See_Comment H [Aut omated message] 670) The system [employer] generated this result transmitted ref erence range: 1.78 - 5 .38 K/L. The refe rence range was not u sed to interpret this result as normal/abnor mal. # Lymphs (test code = 3.15 See_Comment [Auto mated message] 414) The system [employer] generated this result transmitted ref erence range: 1.32 - 3 .57 K/L. The refe rence range was not u sed to interpret this result as normal/abnor mal. # Monos (test code = 0.88 See_Comment H [Autom ated message] 415) The system [employer] generated this result transmitted ref erence range: 0.30 - 0 .82 K/L. The refe rence range was not u sed to interpret this result as normal/abnor mal. # Eos (test code = 416) 0.06 See_Comment [Au tomated message] The system [employer] generated this result transmitted ref erence range: 0.04 - 0 .54 K/L. The refe rence range was not u sed to interpret this result as normal/abnor mal. # Baso (test code = 417) 0.02 See_Comment [A utomated message] The system [employer] generated this result transmitted ref erence range: 0.01 - 0 .08 K/L. The refe rence range was not u sed to interpret this result as normal/abnor mal. Immature 0 % 0-1 Granulocytes-Relative (test code = 2801) Lab Interpretation (test Abnormal code = 91722-1) [facility] W/PLT COUNT & AUTO [id number] 05:37:00 Test Item Value Reference Range Interpretation Comments WHITE BLOOD CELL COUNT (BEAKER) 10.7 K/ L 3.5-10.5 H (test code = 775) RED BLOOD CELL COUNT (BEAKER) 4.54 M/ L 4.63-6.08 L (test code = 761) HEMOGLOBIN (BEAKER) (test code = 13.8 GM/DL 13.7-17.5 410) HEMATOCRIT (BEAKER) (test code = 43.1 % 40.1-51.0 411) MEAN CORPUSCULAR VOLUME (BEAKER) 94.9 fL 79.0-92.2 H (test code = 753) MEAN CORPUSCULAR HEMOGLOBIN 30.4 pg 25.7-32.2 (BEAKER) (test code = 751) MEAN CORPUSCULAR HEMOGLOBIN CONC 32.0 GM/DL 32.3-36.5 L (BEAKER) (test code = 752) RED CELL DISTRIBUTION WIDTH 13.8 % 11.6-14.4 (BEAKER) (test code = 412) PLATELET COUNT (BEAKER) (test 237 K/CU MM 150-450 code = 756) MEAN PLATELET VOLUME (BEAKER) 9.6 fL 9.4-12.4 (test code = 754) NUCLEATED RED BLOOD CELLS 0 /100 WBC 0-0 (BEAKER) (test code = 413) NEUTROPHILS RELATIVE PERCENT 61 % (BEAKER) (test code = 429) LYMPHOCYTES RELATIVE PERCENT 30 % (BEAKER) (test code = 430) MONOCYTES RELATIVE PERCENT 8 % (BEAKER) (test code = 431) EOSINOPHILS RELATIVE PERCENT 1 % (BEAKER) (test code = 432) BASOPHILS RELATIVE PERCENT 0 % (BEAKER) (test code = 437) NEUTROPHILS ABSOLUTE COUNT 6.52 K/ L 1.78-5.38 H (BEAKER) (test code = 670) LYMPHOCYTES ABSOLUTE COUNT 3.15 K/ L 1.32-3.57 (BEAKER) (test code = 414) MONOCYTES ABSOLUTE COUNT (BEAKER) 0.88 K/ L 0.30-0.82 H (test code = 415) EOSINOPHILS ABSOLUTE COUNT 0.06 K/ L 0.04-0.54 (BEAKER) (test code = 416) BASOPHILS ABSOLUTE COUNT (BEAKER) 0.02 K/ L 0.01-0.08 (test code = 417) IMMATURE GRANULOCYTES-RELATIVE 0 % 0-1 PERCENT (BEAKER) (test code = 2801) RAD, CHEST, 2 [id number] 01:10:00Reason for exam:->sob [facility] : 1945 Sex: MFINAL REPORT CLINICAL HISTORY: Shortness of breath The upright images of the chest are submitted. COMPARISON:None. The cardiac silhouette is within normal limits for size. There is atherosclerotic calcification of the tortuous aorta. There are small bilateral pleural effusions. There is no focal consolidation, pneumothorax, evidence of overt pulmonary edema or acutebony abnormality. Signed: Jose Ortega Verified Date/Time: 08/05/2020 01:10:48 XR chest 2 [id number] 01:10:00Interface, External Ris In - 08/05/2020 1:12 AM CSTFINAL REPORT CLINICAL HISTORY: Shortness of breath The upright images of the chest are submitted. COMPARISON:None. The cardiac silhouette is within normal limits for size. There is atherosclerotic calcification of the tortuousaorta. There are small bilateral pleural effusions. There is no focal consolidation, pneumothorax, evidence of overt pulmonary edema or acute bony abnormality. Signed: Jose Ortega Verified Date/Time: 08/05/2020 01:10:48 [facility] [id number] 19:37:00 Test Item Value Reference Range Interpretation Comments ABO Grouping (test code = 2588) B Rh Factor (test code = 2589) POS [facility], [id number] 18:42:00 Test Item Value Reference Range Interpretation Comments ABO/RH AUTOMATED (BEAKER) (test B POSITIVE code = 2260) Ab Scrn (test code = 890-4) NEGATIVE [facility]Glucose [id number] 17:57:00 Test Item Value Reference Range Interpretation Comments POC-Glucose Meter (test 149 mg/dL 70-110 H : TE STED AT [facility] code = 1538) 67[address] [facility], 770 30: Repairer And Checker/Techni theodore ID = [id number] for ARUNA SANDERSON Lab Interpretation (test Abnormal code = 53497-4) [facility]SE [id number] 17:57:00 Test Item Value Reference Range Interpretation Comments POC-GLUCOSE METER 149 mg/dL 70-110 H : TESTED A T [facility] 6720 (BEAKER) (test code = [place] [facility], 1538) [address]: Repairer And Checker/Techni theodore ID = [id number] for ARUNA OWUSU Hemoglobin and [id number] 16:53:00 Test Item Value Reference Range Interpretation Comments Hemoglobin (test code 14.2 See_Comment [Auto mated = 786-4) message] The system which generated this result transmit antelmo reference range : 13.7 - 17.5 GM/ DL. The reference range was not u sed to interpret th is result as normal/abnormal . Hematocrit (test code 43.4 % 40.1-51 = 4544-3) JESUS (test code = JESUS) Repairer And Checker ID - [id number] Lab Interpretation Normal (test code = 71271-8) [facility] HospitalHEMOGLOBIN AND [id number] 16:53:00 Test Item Value Reference Range Interpretation Comments HEMOGLOBIN (BEAKER) (test code = 14.2 GM/DL 13.7-17.5 410) HEMATOCRIT (BEAKER) (test code = 43.4 % 40.1-51.0 411) Repairer And Checker ID - 6000Trkathy [id number] 09:27:00 Test Item Value Reference Range Interpretation Comments Troponin I (test code = 0.02 ng/mL 0-0.03 08728-9) JESUS (test code = JESUS) Troponin I (TnI) levels must be interpreted in the context of the presenting symptoms and the clinical findings. Elevated TnI levels indicate myocardial damage, but are not specific for ischemic heart disease. Elevated TnI levels are seen in patients with other cardiac conditions (including myocarditis and congestive heart failure), and slight TnI elevations occur in patients with other conditions, including sepsis, renal failure, acidosis, acute neurological disease, and persistent tachyarrhythmia.Opera tor ID - ADMIN Lab Interpretation (test Normal code = 93874-7) [facility] [id number] 09:27:00 Test Item Value Reference Range Interpretation Comments TROPONIN I (BEAKER) (test code = 0.02 ng/mL 0.00-0.03 397) Troponin I (TnI) levels must be interpreted in the context of the presenting symptoms and the clinical findings. Elevated TnI levels indicate myocardial damage, but are not specific for ischemic heart disease. Elevated TnI levels are seen in patients with other cardiac conditions (including myocarditis and congestive heart failure), and slight TnI elevations occur in patients with other conditions, including sepsis, renal failure, acidosis, acute neurological disease, and persistent tachyarrhythmia.Repairer And Checker ID - ADMINHemoglobin A1c 2020-08-04 08:42:00 Test Item Value Reference Range Interpretation Comments Hemoglobin A1C (test code = 4548-4) 6.5 % 4.3-6.1 H Lab Interpretation (test code = Abnormal 03474-3) [facility]HEMOGLOBIN [id number] 08:42:00 Test Item Value Reference Range Interpretation Comments HEMOGLOBIN A1C (BEAKER) (test code = 6.5 % 4.3-6.1 H 368) SARS-CoV2/RT-PCR (Asymptomatic ONLY)2020-08-04 08:28:00 Test Item Value Reference Range Interpretation Comments SARS-COV2/RT-PCR Negative Not Detected, (test code = Negative, See 38183-8) external report for linked test SARS-COV-2 [facility] IMTIAZ PERFORMING LAB (test code = 80683-0) JESUS (test code = Negative result for this JESUS) test determines that SARS-CoV-2 RNA was not present in the specimen above the Limit of Detection (LOD). However, Negative results do not preclude SARS-CoV-2 infection and should not be used as the sole basis for treatment or patient management decisions. Negative results must be combined with clinical observations, patient history, and epidemiological information. A false negative result may occur if a specimen is improperly collected, transported or handled. A false negative result should be considered if patient's recent exposures or clinical presentation indicate that COVID-19 (SARS-CoV-2) is likely and diagnostic tests for other causes of illness are negative. Re-testing should be considered in cases of suspected false negatives. The limit of detection for this assay is 800 copies/mL. This SARS CoV-2 test is a real-time RT-PCR test intended for the qualitative detection of nucleic acid from SARS-CoV-2 in a nasopharyngeal swab specimen collected from individuals suspected of COVID-19 by their healthcare provider. This test has not been Food and Drug Administration (FDA) cleared or approved. This is a modified version of an approved Emergency Use Authorization (EUA) and is in the process of review by the FDA. Once authorized by the FDA, the issued EUA will be effective until the declaration that circumstances exist justifying the authorization of the emergency use of in vitro diagnostic tests for detection and/or diagnosis of COVID-19 is terminated under Section 564(b)(2) of the Act or the EUA is revoked under Section 564(g) of the Act. Fact Sheet for Healthcare Providers:https://www.[employer] idel.[employer]/sites/default/f raymond/product/documents/F act_Sheet_HC_Providers_L xvo_RSKL-IyW-6.pdf Fact Sheet for Healthcare Patients:https://www.jaek del.com/sites/default/fi les/product/documents/Fa ct_Sheet_Patients_Lyra_S ARS-CoV-2.pdf Performing Laboratory:[facility], [place] [address] [place], [place] [address]ARS-COV2/RT-PCR ([facility])2020-08-04 08:28:00 Test Item Value Reference Range Interpretation Comments SARS-COV2/RT-PCR (test Negative Not Detected, Negative, code = 6816986) See external report for linked test SARS-COV-2 PERFORMING LAB [facility] IMTIAZ (test code = 1218464) Negative result for this test determines that SARS-CoV-2 RNA was not present in the specimen above the Limit of Detection (LOD). However, Negative results do not preclude SARS-CoV-2 infection and should not be used as the sole basis for treatment or patient management decisions. Negative results mustbe combined with clinical observations, patient history, and epidemiological information. A false negative result may occur if a specimen is improperly collected, transported or handled. A false negative result should be considered if patient's recent exposures or clinical presentation indicate that COVID-19 (SARS-CoV-2) is likely and diagnostic tests for other causes of illness are negative. Re-testing should be considered in cases of suspected false negatives.The limit of detection for this assay is 800 copies/mL.This SARS CoV-2 test is a real-time RT-PCR test intended for the qualitative detection of nucleic acid from SARS-CoV-2 in a nasopharyngeal swab specimen collected from individuals susp ected of COVID-19 by their healthcare provider.This test has not been Food and Drug Administration (FDA) cleared or approved. This is a modified version of an approved Emergency Use Authorization (EUA) and is in the process of review by the FDA. Once authorized by the FDA, the issued EUA will be effective until the declaration that circumstances exist justifying the authorization of the emergency use of in vitro diagnostic tests for detection and/or diagnosis of COVID-19 is terminated under Section 564(b)(2) of the Act or the EUA is revoked under Section 564(g) of the Act.Fact Sheet for Healthcare Providers:https://www.Fang[employer]inmei.[employer]/sites/default/files/product/documents/Fact_Shee r_CC_Douunqfhu_Pxfk_OQBY-LgI-4.pdfFact Sheet for Healthcare Patients:https://www.[employer].com/sites/default/files/product/ documents/Nuid_Rwhfs_Obsipmue_Plzv_JISJ-GfR-1.pdfPerforming Laboratory:[facility], [place] [address]QFMKT METABOLIC PANEL 2020-08-04 05:54:00 Test Item Value Reference Range Interpretation Comments SODIUM (BEAKER) 137 meq/L 136-145 (test code = 381) POTASSIUM (BEAKER) 3.7 meq/L 3.5-5.1 (test code = 379) CHLORIDE (BEAKER) 103 meq/L 98-107 (test code = 382) CO2 (BEAKER) (test 27 meq/L 22-29 code = 355) BLOOD UREA NITROGEN 31 mg/dL 7-21 H (BEAKER) (test code = 354) CREATININE (BEAKER) 1.04 mg/dL 0.57-1.25 (test code = 358) GLUCOSE RANDOM 159 mg/dL 70-105 H (BEAKER) (test code = 652) CALCIUM (BEAKER) 7.6 mg/dL 8.4-10.2 L (test code = 697) EGFR (BEAKER) (test 70 mL/min/1.73 ESTIMA ANTELMO GFR IS code = 1092) sq m NOT ACCURATE CREATININE CLEARANCE IN PREDICTING GLOMERULAR FILTRATION RATE . ESTIMATED GFR I S NOT APPLICABLE FOR DIALYSIS PATIEN TS. Repairer And Checker ID - HERBIE [facility] W/PLT COUNT & AUTO [id number] 05:19:00 Test Item Value Reference Range Interpretation Comments WHITE BLOOD CELL COUNT (BEAKER) 7.8 K/ L 3.5-10.5 (test code = 775) RED BLOOD CELL COUNT (BEAKER) 4.45 M/ L 4.63-6.08 L (test code = 761) HEMOGLOBIN (BEAKER) (test code = 13.5 GM/DL 13.7-17.5 L 410) HEMATOCRIT (BEAKER) (test code = 41.8 % 40.1-51.0 411) MEAN CORPUSCULAR VOLUME (BEAKER) 93.9 fL 79.0-92.2 H (test code = 753) MEAN CORPUSCULAR HEMOGLOBIN 30.3 pg 25.7-32.2 (BEAKER) (test code = 751) MEAN CORPUSCULAR HEMOGLOBIN CONC 32.3 GM/DL 32.3-36.5 (BEAKER) (test code = 752) RED CELL DISTRIBUTION WIDTH 13.6 % 11.6-14.4 (BEAKER) (test code = 412) PLATELET COUNT (BEAKER) (test 222 K/CU MM 150-450 code = 756) MEAN PLATELET VOLUME (BEAKER) 9.6 fL 9.4-12.4 (test code = 754) NUCLEATED RED BLOOD CELLS 0 /100 WBC 0-0 (BEAKER) (test code = 413) NEUTROPHILS RELATIVE PERCENT 79 % (BEAKER) (test code = 429) LYMPHOCYTES RELATIVE PERCENT 14 % (BEAKER) (test code = 430) MONOCYTES RELATIVE PERCENT 7 % (BEAKER) (test code = 431) EOSINOPHILS RELATIVE PERCENT 0 % (BEAKER) (test code = 432) BASOPHILS RELATIVE PERCENT 0 % (BEAKER) (test code = 437) NEUTROPHILS ABSOLUTE COUNT 6.10 K/ L 1.78-5.38 H (BEAKER) (test code = 670) LYMPHOCYTES ABSOLUTE COUNT 1.09 K/ L 1.32-3.57 L (BEAKER) (test code = 414) MONOCYTES ABSOLUTE COUNT (BEAKER) 0.55 K/ L 0.30-0.82 (test code = 415) EOSINOPHILS ABSOLUTE COUNT 0.00 K/ L 0.04-0.54 L (BEAKER) (test code = 416) BASOPHILS ABSOLUTE COUNT (BEAKER) 0.00 K/ L 0.01-0.08 L (test code = 417) IMMATURE GRANULOCYTES-RELATIVE 0 % 0-1 PERCENT (BEAKER) (test code = 2801) Urinalysis with Microscopic If [id number] 03:14:00 Test Item Value Reference Range Interpretation Comments Color, UA (test code = Yellow 5778-6) Clarity, UA (test code = Clear 5767-9) Specific [place], UA (test 1.027 1.001-1.035 code = 5811-5) pH, UA (test code = 6.5 5.0-8.0 5803-2) Protein, UA (test code = 10 mg/dL Negative A 43752-3) Glucose, UA (test code = Negative Negative 365) Ketones, UA (test code = Trace Negative A 2514-8) Bilirubin, UA (test code = Negative Negative 71311-6) Blood, UA (test code = Small Negative A 66717-5) Nitrite, UA (test code = Negative Negative 5802-4) Leukocytes, UA (test code Negative Negative = 5799-2) Urobilinogen, UA (test 0.2 mg/dL 0.2-1 code = 30018-7) Specimen Source (test code = 2795) JESUS (test code = JESUS) Repairer And Checker ID - [auto]Repairer And Checker ID - QC Lab Interpretation (test Abnormal code = 35683-6) [facility]inal[facility] Microscopic [id number] 03:14:00 Test Item Value Reference Range Interpretation Comments RBC, UA (test 20 See_Comment [Automated me ssage] code = 36330-6) The system w Bag Borrow or Steal generated this result transmitted ref erence range: /HPF. Th e reference range was not used to int erpret this result as normal/abnormal . WBC, UA (test <1 See_Comment [Automated me ssage] code = 5821-4) The system Aristotl generated this result transmitted ref erence range: /HPF. Th e reference range was not used to int erpret this result as normal/abnormal . Squam Epithel, 2 See_Comment [Automated m essage] UA (test code = The system w Bag Borrow or Steal 50742-3) generated this result transmitted ref erence range: /HPF. Th e reference range was not used to int erpret this result as normal/abnormal . JESUS (test code = Repairer And Checker ID - QC JESUS) [facility]URINAL[facility]IS WITH MICROSCOPIC IF [id number] 03:14:00 Test Item Value Reference Range Interpretation Comments COLOR (BEAKER) (test code = 470) Yellow CLARITY (BEAKER) (test code = 469) Clear SPECIFIC GRAVITY UA (BEAKER) (test 1.027 1.001-1.035 code = 468) PH UA (BEAKER) (test code = 467) 6.5 5.0-8.0 PROTEIN UA (BEAKER) (test code = 10 mg/dL Negative A 464) GLUCOSE UA (BEAKER) (test code = Negative Negative 365) KETONES UA (BEAKER) (test code = Trace Negative A 371) BILIRUBIN UA (BEAKER) (test code = Negative Negative 462) BLOOD UA (BEAKER) (test code = 461) Small Negative A NITRITE UA (BEAKER) (test code = Negative Negative 465) LEUKOCYTE ESTERASE UA (BEAKER) Negative Negative (test code = 466) UROBILINOGEN UA (BEAKER) (test code 0.2 mg/dL 0.2-1.0 = 463) SOURCE(BEAKER) (test code = 2795) Repairer And Checker ID - [auto]Repairer And Checker ID - QCURINALYSIS [id number] 03:14:00 Test Item Value Reference Range Interpretation Comments RBC UA (BEAKER) (test code = 519) 20 /HPF WBC UA (BEAKER) (test code = 520) < /HPF SQUAMOUS EPITHELIAL (BEAKER) (test 2 /HPF code = 516) Repairer And Checker ID - QCCreatinine, random [id number] 02:25:00 Test Item Value Reference Range Interpretation Comments Creatinine, Ur 100.7 mg/dL (test code = 2161-8) JESUS (test code = Reference Range: No JESUS) NormalsOperator ID - [facility]E [facility] [id number] 02:25:00 Test Item Value Reference Range Interpretation Comments Sodium Urine (test 42 meq/L code = 2955-3) JESUS (test code = Reference Range: No JESUS) NormalsOperator ID - HERBIE [facility] CenterU[facility] Nitrogen, random [id number] 02:25:00 Test Item Value Reference Range Interpretation Comments Urea Nitrogen, Ur 1283 mg/dL (test code = 3095-7) JESUS (test code = Reference Range: No JESUS) NormalsOperator ID - HERBIE [facility] CenterCREATININE, RANDOM [id number] 02:25:00 Test Item Value Reference Range Interpretation Comments CREATININE URINE (BEAKER) (test 100.7 mg/dL code = 375) Reference Range: No NormalsOperator ID - HERBIE MSODIUM, RANDOM [id number] 02:25:00 Test Item Value Reference Range Interpretation Comments SODIUM URINE (BEAKER) (test code = 42 meq/L 243) Reference Range: No NormalsOperator ID - HERBIE MUREA NITROGEN, RANDOM URINE 2020-08-04 02:25:00 Test Item Value Reference Range Interpretation Comments UREA NITROGEN URINE (BEAKER) (test 1283 mg/dL code = 538) Reference Range: No NormalsOperator ID - HERBIE MBASIC METABOLIC [id number] 02:22:00 Test Item Value Reference Range Interpretation Comments SODIUM (BEAKER) 138 meq/L 136-145 (test code = 381) POTASSIUM (BEAKER) 3.9 meq/L 3.5-5.1 (test code = 379) CHLORIDE (BEAKER) 104 meq/L 98-107 (test code = 382) CO2 (BEAKER) (test 22 meq/L 22-29 code = 355) BLOOD UREA NITROGEN 32 mg/dL 7-21 H (BEAKER) (test code = 354) CREATININE (BEAKER) 1.05 mg/dL 0.57-1.25 (test code = 358) GLUCOSE RANDOM 165 mg/dL 70-105 H (BEAKER) (test code = 652) CALCIUM (BEAKER) 7.7 mg/dL 8.4-10.2 L (test code = 697) EGFR (BEAKER) (test 69 mL/min/1.73 ESTIMA ANTELMO GFR IS code = 1092) sq m NOT ACCURATE CREATININE CLEARANCE IN PREDICTING GLOMERULAR FILTRATION RATE . ESTIMATED GFR I S NOT APPLICABLE FOR DIALYSIS PATIEN TS. Repairer And Checker RAAD STONER MLipid [id number] 02:12:00 Test Item Value Reference Range Interpretation Comments Triglycerides (test 72 mg/dL code = 2571-8) Cholesterol (test code 135 mg/dL = 2093-3) HDL (test code = 38 mg/dL 2084-9) LDL Calculated (test 83 mg/dL code = 57045-7) JESUS (test code = JESUS) Triglyceride Reference Range: Low Risk <150 Borderline 150-199 High Risk 200-499 Very High Risk >=500 Cholesterol Reference Range: Low Risk <200 Borderline 200-239 High Risk >240 HDL Cholesterol Reference Range: Low Risk >=60 High Risk <40 LDL Cholesterol Reference Range: Optimal <100 Near Optimal 100-129 Borderline 130-159 High 160-189 Very High >=190 Repairer And Checker RAAD Mitchell HERBIE Maya [facility] HospitalHepatic function [id number] 02:12:00 Test Item Value Reference Range Interpretation Comments Protein, Total (test 5.6 See_Comment L [Autom ated code = 2885-2) message] The system which generated this result transmit antelmo reference range : 6.0 - 8.3 gm/dL . The reference range was not u sed to interpret th is result as normal/abnormal . Albumin (test code = 3.1 g/dL 3.5-5 L 70720-0) Total Bilirubin (test 1.1 mg/dL 0.2-1.2 code = 1975-2) Bilirubin, Direct 0.4 mg/dL 0.1-0.5 (test code = 1967-7) Alkaline Phosphatase 68 U/L 40-150 (test code = 6768-6) AST (test code = 34 U/L 5-34 1920-8) ALT (test code = 75 U/L 6-55 H 1742-6) JESUS (test code = JESUS) Repairer And Checker ID - HERBIE Lab Interpretation Abnormal (test code = 38925-3) [facility] HospitalMagnesium2021-03-04 02:12:00 Test Item Value Reference Range Interpretation Comments Magnesium (test code = 2.1 mg/dL 1.6-2.6 80416-1) JESUS (test code = JESUS) Repairer And Checker ID - [facility] Lab Interpretation (test Normal code = 36692-6) [facility] HospitalB-type Natriuretic Factor (BNP)2020-08-04 02:12:00 Test Item Value Reference Range Interpretation Comments BNP (test code = 61385-3) 1067 pg/mL 0-100 H JESUS (test code = JESUS) Repairer And Checker ID - [facility] Lab Interpretation (test Abnormal code = 60409-5) [facility] HospitalMAGNESIUM2021-03-04 02:12:00 Test Item Value Reference Range Interpretation Comments MAGNESIUM (BEAKER) (test code = 2.1 mg/dL 1.6-2.6 627) Repairer And Checker ID - [facility] MLIPID [id number] 02:12:00 Test Item Value Reference Range Interpretation Comments TRIGLYCERIDES (BEAKER) (test code = 72 mg/dL 540) CHOLESTEROL (BEAKER) (test code = 135 mg/dL 631) HDL CHOLESTEROL (BEAKER) (test code 38 mg/dL = 976) LDL CHOLESTEROL CALCULATED (AKER) 83 mg/dL (test code = 633) Triglyceride Reference Range: Low Risk <150 Borderline 150-199 High Risk 200-499 Very High Risk >=500Cholesterol Reference Range: Low Risk <200 Borderline 200-239 High Risk >240HDL Cholesterol Reference Range: Low Risk >=60 High Risk <40LDL Cholesterol Reference Range: Optimal <100 Near Optimal 100-129 Borderline 130-159 High 160-189 Very High >=190 Repairer And Checker ID Stephen STONER MHEPATIC FUNCTION [id number] 02:12:00 Test Item Value Reference Range Interpretation Comments TOTAL PROTEIN (BEAKER) (test code = 5.6 gm/dL 6.0-8.3 L 770) ALBUMIN (BEAKER) (test code = 1145) 3.1 g/dL 3.5-5.0 L BILIRUBIN TOTAL (BEAKER) (test code 1.1 mg/dL 0.2-1.2 = 377) BILIRUBIN DIRECT (BEAKER) (test 0.4 mg/dL 0.1-0.5 code = 706) ALKALINE PHOSPHATASE (BEAKER) (test 68 U/L 40-150 code = 346) AST (SGOT) (BEAKER) (test code = 34 U/L 5-34 353) ALT (SGPT) (BEAKER) (test code = 75 U/L 6-55 H 347) Repairer And Checker ID - HERBIE MB-TYPE NATRIURETIC FACTOR (BNP)2020-08-04 02:12:00 Test Item Value Reference Range Interpretation Comments B-TYPE NATRIURETIC PEPTIDE 1067 pg/mL 0-100 H (BEAKER) (test code = 700) Repairer And Checker ID Stephen STONER MProthrombin time/[id number] 01:50:00 Test Item Value Reference Interpretation Comments Range Protime (test code = 14.6 See_Comment H [Autom ated 0842-2) message] The system which generated this result transmitted reference range : 11.9 - 14.2 seconds. The reference range was not used to interpret this result as normal/abnormal . INR (test code = 1.17 See_Comment [Automated 4401-6) message] The system which generated this result transmitted reference range : <=5.90. The reference range was not used to interpret this result as normal/abnormal . JESUS (test code = Effective 10/29/2018: JESUS) PT Reference Range ChangeNew: 11.9-14.2 Previous: 11.7-14.7 RECOMMENDED COUMADIN/WARFARIN INR THERAPY RANGESSTANDARD DOSE: 2.0-3.0 Includes: PROPHYLAXIS for venous thrombosis, systemic embolization; TREATMENT for venous thrombosis and/or pulmonary embolus.HIGH RISK: Target INR is 2.5-3.5 for patients wiht mechanical heart valves. Prior to initiating heparin Lab Interpretation Abnormal (test code = 28806-0) [facility] HospitalaPTT2021-[facility] 01:50:00 Test Item Value Reference Range Interpretation Comments PTT (test code = 42.6 See_Comment H [Automated 88811-3) message] The system which generated this result transmitted reference range : 22.5 - 36.0 seconds. The reference range was not used to interpret this result as normal/abnormal . JESUS (test code = JESUS) Prior to initiating heparin Lab Interpretation Abnormal (test code = 22989-6) [facility] HospitalPROTHROMBIN TIME/[id number] 01:50:00 Test Item Value Reference Range Interpretation Comments PROTIME (BEAKER) 14.6 seconds 11.9-14.2 H (test code = 759) INR (BEAKER) (test 1.17 See_Comment [Automat ed message] code = 370) The system [employer] h generated this result transmitted ref erence range: <=5.90. The reference range was not used to int erpret this result as normal/abnormal . Effective 10/29/2018: PT Reference Range ChangeNew: 11.9-14.2 Previous: 11.7- 14.7RECOMMENDED COUMADIN/WARFARIN INR THERAPY RANGESSTANDARD DOSE: 2.0-3.0 Includes: PROPHYLAXIS for venous thrombosis, systemic embolization; TREATMENT for venous thrombosis and/or pulmonary embolus.HIGH RISK: Target INR is2.5-3.5 for patients wiht mechanical heart valves.Prior to initiating heparinAPTT 2020-08-04 01:50:00 Test Item Value Reference Range Interpretation Comments PARTIAL THROMBOPLASTIN TIME 42.6 seconds 22.5-36.0 H (BEAKER) (test code = 760) Prior to initiating heparinCBC W/PLT COUNT & AUTO [id number] 01:29:00 Test Item Value Reference Range Interpretation Comments WHITE BLOOD CELL COUNT (BEAKER) 6.4 K/ L 3.5-10.5 (test code = 775) RED BLOOD CELL COUNT (BEAKER) 4.65 M/ L 4.63-6.08 (test code = 761) HEMOGLOBIN (BEAKER) (test code = 14.1 GM/DL 13.7-17.5 410) HEMATOCRIT (BEAKER) (test code = 42.9 % 40.1-51.0 411) MEAN CORPUSCULAR VOLUME (BEAKER) 92.3 fL 79.0-92.2 H (test code = 753) MEAN CORPUSCULAR HEMOGLOBIN 30.3 pg 25.7-32.2 (BEAKER) (test code = 751) MEAN CORPUSCULAR HEMOGLOBIN CONC 32.9 GM/DL 32.3-36.5 (BEAKER) (test code = 752) RED CELL DISTRIBUTION WIDTH 13.7 % 11.6-14.4 (BEAKER) (test code = 412) PLATELET COUNT (BEAKER) (test 245 K/CU MM 150-450 code = 756) MEAN PLATELET VOLUME (BEAKER) 9.5 fL 9.4-12.4 (test code = 754) NUCLEATED RED BLOOD CELLS 0 /100 WBC 0-0 (BEAKER) (test code = 413) NEUTROPHILS RELATIVE PERCENT 83 % (BEAKER) (test code = 429) LYMPHOCYTES RELATIVE PERCENT 13 % (BEAKER) (test code = 430) MONOCYTES RELATIVE PERCENT 4 % (BEAKER) (test code = 431) EOSINOPHILS RELATIVE PERCENT 0 % (BEAKER) (test code = 432) BASOPHILS RELATIVE PERCENT 0 % (BEAKER) (test code = 437) NEUTROPHILS ABSOLUTE COUNT 5.28 K/ L 1.78-5.38 (BEAKER) (test code = 670) LYMPHOCYTES ABSOLUTE COUNT 0.85 K/ L 1.32-3.57 L (BEAKER) (test code = 414) MONOCYTES ABSOLUTE COUNT (BEAKER) 0.23 K/ L 0.30-0.82 L (test code = 415) EOSINOPHILS ABSOLUTE COUNT 0.00 K/ L 0.04-0.54 L (BEAKER) (test code = 416) BASOPHILS ABSOLUTE COUNT (BEAKER) 0.01 K/ L 0.01-0.08 (test code = 417) IMMATURE GRANULOCYTES-RELATIVE 0 % 0-1 PERCENT (BEAKER) (test code = 2801) [id number] 00:00:00Ordered by an unspecified provider.[facility]
[2020-08-22 17:23] LABS: Absolute Lymphocytes (CBC) 1.8 K/uL (0.7-4.9); Hematocrit 37.8 % (39.6-49.0); Lymphocytes % 24.6 % (15.3-44.8); MPV 8.7 fL (7.6-11.3); RBC Red Blood Cell Count 4.03 M/uL (4.33-5.43)
[2020-08-22 17:39] LABS: ALT/SGPT 39 U/L (12-78); AST/SGOT 28 U/L (15-37); Albumin 3.3 g/dL (3.4-5.0); Alkaline Phosphatase 72 U/L (45-117); BUN Blood Urea Nitrogen 41 mg/dL (7-18); Bicarbonate 22 mmol/L (21-32); Bilirubin Direct 0.3 mg/dL (0-0.2); Bilirubin Total 0.9 mg/dL (0.2-1.0); Glucose Level 121 mg/dL (74-106); Magnesium 2.4 mg/dL (1.8-2.4); NT PRO-BNP 8234 pg/mL (<125); Potassium 3.7 mmol/L (3.5-5.1); Protein, Total 6.9 g/dL (6.4-8.2); Sodium Level 142 mmol/L (136-145); Troponin (Emerg Dept Use Only) < 0.02 ng/mL (0.0-0.045)
[2020-08-22 17:48] LABS: Protime INR 1.63
--- NOTE | 2020-08-22 17:52 | RAD REPORT ---
EXAM DESCRIPTION: Rafy Single View08/22/2020 5:25 pm CLINICAL HISTORY: Shortness breath COMPARISON: August 01, 2020 FINDINGS: Mild patchy opacities within the left lung. The heart is moderately enlarged IMPRESSION: Mild patchy opacities within left lung may indicate a mild pneumonia
--- NOTE | 2020-08-22 17:53 | RAD REPORT ---
EXAM DESCRIPTION: CT - Abdomen Pelvis Wo Contrast - 08/22/2020 5:30 pm CLINICAL HISTORY: Abdominal pain /GI bleed COMPARISON: 2017 TECHNIQUE: Computed axial tomography of the abdomen and pelvis was obtained. IV and oral contrast we re not requested. All CT scans are performed using dose optimization technique as appropriate and may include automated exposure control or mA/KV adjustment according to patient size. FINDINGS: The evaluation of solid organs, vessels and bowel is limited secondary to the lack of con trast administration. Mild patchy ground-glass opacities within the right middle and right lower lobes. Minimal reticulonod ular opacities right lower lobe. Tiny right lung nodules unchanged 2017 likely benign The liver, spleen, left adrenal gland appear grossly normal. Small right adrenal adenoma unchanged. 5.5 centimeter right renal cyst has enlarged. Small left renal cyst. Diverticula stem from the colon without evidence of diverticulitis. IMPRESSION: Mild right lung opacities may indicate mild pneumonia No acute abnormality involving the abdomen/pelvis
--- NOTE | 2020-08-22 18:19 | EDPHYS ---
Physician Documentation [facility] Name: Felipe Ross Age: 74 yrs Sex: Male : 1945 Arrival Date: 08/22/2020 Time: 15:33 Bed 26 Private MD: Efrain Mercado ED Physician Matthew Pickard HPI: 08/22 16:39 This 74 yrs old Male presents to ER via Ambulatory with complaints of Bloody pm1 Stools - Sent By Dr. Novak. 16:39 Onset: The symptoms/episode began/occurred 3 day(s) ago. pm1 16:39 The patient presents to the emergency department with rectal bleeding, pm1 16:39 Abdominal pain: none is appreciated. Modifying factors: The symptoms are alleviated by pm1 nothing, the symptoms are aggravated by nothing. 16:39 Associated signs and symptoms: The patient has no apparent associated signs or pm1 symptoms. Severity of symptoms: in the emergency department the symptoms are unchanged. The patient has not experienced similar symptoms in the past. Patient recently placed on Eliquis and aspirin upon discharge from the [facility] for his atrial fibrillation. Patient presents here with complaints of bright red rectal bleeding for the past 3 days. Stool is firm and solid. No diarrhea. No nausea, vomiting, abdominal pain. . Historical: - Allergies: 15:53 No Known Allergies; ll1 - PMHx: 15:53 Asthma; Chronic back/leg pain; herniated discs; Atrial Fib; Hypertension; Mitral Valve ll1 Regurgitation; Left atrium enlargement; - PSHx: 15:53 SKYLER; portable defib; ll1 - Immunization history:: Client reports receiving the 2nd dose of the Covid vaccine, Flu vaccine is up to date. - Social history:: Smoking status: Patient denies any tobacco usage or history of. ROS: 16:39 Constitutional: Negative for fever, chills, and weight loss. pm1 16:39 Back: Negative for injury and pain, : Negative for injury, bleeding, discharge, and swelling, MS/Extremity: Negative for injury and deformity, Neuro: Negative for headache, weakness, numbness, tingling, and seizure. 16:39 Cardiovascular: Positive for pedal edema that has improved with Lasix that he was recently prescibed, Negative for chest pain. 16:39 Respiratory: Positive for shortness of breath, on exertion. that has improved with Lasix and recent medications, Negative for cough, wheezing. 16:39 Abdomen/GI: Positive for rectal bleeding, Negative for abdominal pain, nausea, vomiting, and diarrhea, constipation, black/tarry stool. 16:39 Skin: Positive for ecchymosis, Negative for rash, injury. Exam: 16:39 Constitutional: This is a well developed, well nourished patient who is awake, alert, pm1 and in no acute distress. Head/Face: Normocephalic, atraumatic. 16:39 Back: No spinal tenderness. No costovertebral tenderness. Full range of motion. 16:39 Cardiovascular: Exam negative for acute changes, Rate: normal, Rhythm: irregular, Pulses: no pulse deficits are appreciated, Edema: pedal edema, that is mild. 16:39 Respiratory: the patient does not display signs of respiratory distress, Respirations: normal, Breath sounds: are clear throughout. 16:39 Abdomen/GI: Inspection: abdomen appears normal, Bowel sounds: normal, Palpation: abdomen is soft and non-tender, in all quadrants. 16:39 Skin: Appearance: normal except for affected area, ecchymosis, noted on the, right arm and left arm, that are mild. 16:39 Neuro: Exam negative for acute changes, Orientation: is normal, Mentation: is normal, Motor: is normal, moves all fours, Sensation: is normal, no obvious gross deficits. Vital Signs: 15:53 BP 105 / 77; Pulse 98; Resp 17; Temp 98.3; Pulse Ox 97% on R/A; Weight 110.68 kg; ll1 Height 6 ft. 8 in. (203.20 cm); Pain 0/10; 16:39 BP 102 / 80; Pulse 90; Resp 18; Pulse Ox 98% on R/A; vg1 17:48 BP 112 / 78; Pulse 95; Resp 20; Pulse Ox 98% on R/A; vg1 18:00 BP 124 / 90; Pulse 98; Resp 22; Pulse Ox 98% on R/A; vg1 19:00 BP 106 / 76; Pulse 98; Resp 22; Pulse Ox 98% on R/A; vg1 20:23 BP 114 / 82; Pulse 92; Resp 20; Pulse Ox 99% on R/A; vg1 21:00 BP 119 / 99; Pulse 88; Resp 20; Pulse Ox 98% on R/A; vg1 22:00 BP 112 / 77; Pulse 93; Resp 22; Pulse Ox 97% on R/A; vg1 23:00 BP 116 / 89; Pulse 93; Resp 22; Pulse Ox 98% on R/A; vg1 15:53 Body Mass Index 26.80 (110.68 kg, 203.20 cm) ll1 MDM: 16:36 Patient medically screened. pm1 16:43 Physician consultation: Martin Novak MD was contacted at 16:43, regarding consult, pm1 patient's condition, in the emergency department to see patient at 16:43. 18:05 Data reviewed: radiologic studies, CT scan, plain films, I have discussed the patient's pm1 presentation/case with the attending Emergency Department Physician; and as a result, I will administer antibiotics Levaquin. 18:06 Data reviewed: vital signs. pm1 18:10 Physician consultation: Martin Novak MD was called at 18:10, was contacted at 18:10, pm1 regarding patient's condition, He contacted [facility] for transfer and they are at capacity. He would like the patient admitted here to the hospitalist. 18:12 Counseling: I had a detailed discussion with the patient and/or guardian regarding: the pm1 historical points, exam findings, and any diagnostic results supporting the discharge/admit diagnosis, lab results, radiology results, the need for further work-up and treatment in the hospital. 18:17 Physician consultation: Gil Day MD was called at 18:13, left message. pm1 19:04 Physician consultation: Jeffery ARANA was contacted at 19:05, regarding admission, pm1 patient's condition, and will see patient admit to Dr. Estrada. 08/22 16:37 Order name: Type And Screen pm1 08/22 16:37 Order name: Basic Metabolic Panel pm1 08/22 16:37 Order name: CBC with Diff pm1 08/22 16:37 Order name: LFT's pm1 08/22 16:37 Order name: Magnesium pm1 08/22 16:37 Order name: NT PRO-BNP pm1 08/22 16:37 Order name: PT-INR pm1 08/22 16:37 Order name: Troponin (emerg Dept Use Only) pm1 08/22 16:37 Order name: Type and Screen; Complete Time: 18:45 EDMS 08/22 16:37 Order name: Basic Metabolic Panel; Complete Time: 17:40 EDMS 08/22 16:37 Order name: CBC with Automated Diff; Complete Time: 17:32 EDMS 08/22 16:37 Order name: Liver (Hepatic) Function; Complete Time: 17:40 EDMS 08/22 16:37 Order name: Magnesium; Complete Time: 17:40 EDMS 08/22 16:37 Order name: NT PRO-BNP; Complete Time: 17:40 EDMS 08/22 16:37 Order name: XRAY Chest (1 view); Complete Time: 17:58 pm1 08/22 16:37 Order name: EKG; Complete Time: 16:38 pm1 08/22 16:37 Order name: Cardiac monitoring; Complete Time: 17:14 pm1 08/22 16:37 Order name: EKG - Nurse/Tech; Complete Time: 17:14 pm1 08/22 16:37 Order name: IV Saline Lock; Complete Time: 17:14 pm1 08/22 16:37 Order name: Protime (+INR); Complete Time: 17:58 EDMS 08/22 16:38 Order name: Troponin (Emerg Dept Use Only); Complete Time: 17:40 EDMS 08/22 17:27 Order name: COVID-19 : Document "Date of Symptom Onset" if Symptomatic. pm1 08/22 17:29 Order name: Abdomen ; Complete Time: 17:58 EDMS 08/22 17:49 Order name: Occult Blood--Ancillary; Complete Time: 17:58 bd 08/22 18:06 Order name: Blood Culture Adult (2) pm1 08/22 18:07 Order name: Blood Culture EDMT 08/22 19:25 Order name: ABO/RH no charge; Complete Time: 19:48 EDMS 08/22 19:56 Order name: CONS Physician Consult EDMT 08/22 16:37 Order name: Labs collected and sent; Complete Time: 17:14 pm1 08/22 16:37 Order name: O2 Per Protocol; Complete Time: 16:46 pm1 08/22 16:37 Order name: O2 Sat Monitoring; Complete Time: 16:46 pm1 Administered Medications: 19:08 Drug: LevaQUIN 750 mg Volume: 150 ml; Route: IVPB; Infused Over: 90 mins; Site: right vg1 antecubital; 21:40 Follow up: Response: No adverse reaction; IV Status: Completed infusion vg1 Disposition: 08/23 07:47 Co-signature as Attending Physician, Matthew Pickard MD. rn Disposition: 08/22/20 18:18 Hospitalization ordered by Kd Estrada for Inpatient Admission. Preliminary diagnosis is Gastrointestinal hemorrhage, unspecified. - Bed requested for Telemetry/MedSurg (Inpatient). - Status is Inpatient Admission. vg1 - Condition is Stable. - Problem is new. - Symptoms are unchanged. Signatures: Dispatcher [employer] EDMS Matthew Pickard MD MD rn Bobby Valle, JOB COACHING JOB COACHING pm1 Erick Solorzano mw2 Sarina Loomis RN RN vg1 Robbie Leo RN RN ll1 Corrections: (The following items were deleted from the chart) 08/22 17:29 16:38 Abdomen Pelvis W Con+CT.RAD.BRZ ordered. [facility] 19:05 18:18 Hospitalization Ordered by Jeffery ARANA for Inpatient Admission. Preliminary pm1 diagnosis is Gastrointestinal hemorrhage, unspecified. Bed requested for Telemetry/MedSurg (Inpatient). Status is Inpatient Admission. Condition is Stable. Problem is new. Symptoms are unchanged. pm1 23:16 19:05 08/22/2020 18:18 Hospitalization Ordered by Kd Estrada for Inpatient mw2 Admission. Preliminary diagnosis is Gastrointestinal hemorrhage, unspecified. Bed requested for Telemetry/MedSurg (Inpatient). Status is Inpatient Admission. Condition is Stable. Problem is new. Symptoms are unchanged. pm1 23:53 23:16 08/22/2020 18:18 Hospitalization Ordered by Kd Estrada for Inpatient vg1 Admission. Preliminary diagnosis is Gastrointestinal hemorrhage, unspecified. Bed requested for Telemetry/MedSurg (Inpatient). Status is Inpatient Admission. Condition is Stable. Problem is new. Symptoms are unchanged. mw2
--- NOTE | 2020-08-22 18:19 | ER ---
Nurse's Notes [facility] Name: Felipe Ross Age: 74 yrs Sex: Male : 1945 Arrival Date: 08/22/2020 Time: 15:33 Bed 26 Private MD: Efrain Mercado Diagnosis: Gastrointestinal hemorrhage, unspecified Presentation: 08/22 15:53 Chief complaint: Patient states: Blood in stools for 3 days. No pain or cramping. On ll1 eliquis since 08/10/20. Coronavirus screen: Client denies travel out of the [place] in the last 14 days. At this time, the client does not indicate any symptoms associated with coronavirus-19. Ebola Screen: Patient denies travel to an Ebola-affected area in the 21 days before illness onset. Initial Sepsis Screen: Does the patient meet any 2 criteria? HR > 90 bpm. No. Patient's initial sepsis screen is negative. Does the patient have a suspected source of infection? Yes: Other: bloody stool. Risk Assessment: Do you want to hurt yourself or someone else? Patient reports no desire to harm self or others. Onset of symptoms was August 20, 2020. 15:53 Method Of Arrival: Ambulatory ll1 15:53 Acuity: SYDNEE 2 ll1 Historical: - Allergies: 15:53 No Known Allergies; ll1 - PMHx: 15:53 Asthma; Chronic back/leg pain; herniated discs; Atrial Fib; Hypertension; Mitral Valve ll1 Regurgitation; Left atrium enlargement; - PSHx: 15:53 SKYLER; portable defib; ll1 - Immunization history:: Client reports receiving the 2nd dose of the Covid vaccine, Flu vaccine is up to date. - Social history:: Smoking status: Patient denies any tobacco usage or history of. Screenin:40 Abuse screen: Denies threats or abuse. Nutritional screening: No deficits noted. vg1 Tuberculosis screening: No symptoms or risk factors identified. Fall Risk No fall in past 12 months (0 pts). No secondary diagnosis (0 pts). IV access (20 points). Ambulatory Aid- Crutches/Cane/Walker (15 pts). Gait- Normal/Bed Rest/Wheelchair (0 pts) Mental Status- Oriented to own ability (0 pts). Total Marsh Fall Scale indicates Low Risk Score (25-44 pts). Fall prevention measures have been instituted. Side Rails Up X 2 Placed close to Nursing Station. Assessment: 16:38 General: Appears in no apparent distress. comfortable, Behavior is calm, cooperative. vg1 Pain: Denies pain. Neuro: Level of Consciousness is awake, alert, obeys commands, Oriented to person, place, time, situation. Cardiovascular: Patient's skin is warm and dry. Pt has a LifeVest on. Respiratory: Airway is patent Respiratory effort is even, unlabored. GI: Abdomen is flat, Bowel sounds present X 4 quads. : No signs and/or symptoms were reported regarding the genitourinary system. EENT: No signs and/or symptoms were reported regarding the EENT system. Derm: Bruising that is dark purple, Pt is currently on Eliquis. Musculoskeletal: Circulation, motion, and sensation intact. 17:48 Reassessment: Patient appears in no apparent distress at this time. No changes from vg1 previously documented assessment. Patient and/or family updated on plan of care and expected duration. Pain level reassessed. Patient is alert, oriented x 3, equal unlabored respirations, skin warm/dry/pink. 19:08 Reassessment: Patient appears in no apparent distress at this time. No changes from vg1 previously documented assessment. Patient and/or family updated on plan of care and expected duration. Pain level reassessed. Patient is alert, oriented x 3, equal unlabored respirations, skin warm/dry/pink. 20:21 Reassessment: Patient appears in no apparent distress at this time. No changes from vg1 previously documented assessment. Patient and/or family updated on plan of care and expected duration. Pain level reassessed. Patient is alert, oriented x 3, equal unlabored respirations, skin warm/dry/pink. Vital Signs: 15:53 BP 105 / 77; Pulse 98; Resp 17; Temp 98.3; Pulse Ox 97% on R/A; Weight 110.68 kg; ll1 Height 6 ft. 8 in. (203.20 cm); Pain 0/10; 16:39 BP 102 / 80; Pulse 90; Resp 18; Pulse Ox 98% on R/A; vg1 17:48 BP 112 / 78; Pulse 95; Resp 20; Pulse Ox 98% on R/A; vg1 18:00 BP 124 / 90; Pulse 98; Resp 22; Pulse Ox 98% on R/A; vg1 19:00 BP 106 / 76; Pulse 98; Resp 22; Pulse Ox 98% on R/A; vg1 20:23 BP 114 / 82; Pulse 92; Resp 20; Pulse Ox 99% on R/A; vg1 21:00 BP 119 / 99; Pulse 88; Resp 20; Pulse Ox 98% on R/A; vg1 22:00 BP 112 / 77; Pulse 93; Resp 22; Pulse Ox 97% on R/A; vg1 23:00 BP 116 / 89; Pulse 93; Resp 22; Pulse Ox 98% on R/A; vg1 15:53 Body Mass Index 26.80 (110.68 kg, 203.20 cm) ll1 ED Course: 15:33 Patient arrived in ED. ds1 15:34 Kenny Lora MD is Private Physician. ds1 15:34 Efrain Mercado MD is Private Physician. ds1 15:51 Arm band placed on. ll1 15:55 Triage completed. ll1 16:15 Bobby Valle NP is PHCP. pm1 16:16 Matthew Pickard MD is Attending Physician. pm1 16:16 Sarina Loomis RN is Primary Nurse. vg1 16:40 Patient has correct armband on for positive identification. Placed in gown. Bed in low vg1 position. Call light in reach. Side rails up X2. 17:08 Initial lab(s) drawn, by al, sent to lab. Inserted saline lock: 20 gauge in right vg1 antecubital area, using aseptic technique. Blood collected. 17:14 EKG done. vg1 17:[address] via stretcher. vg1 17:24 XRAY Chest (1 view) In Process Unspecified. EDMS 17:31 Abdomen In Process Unspecified. EDMS 17:[address] from [address]. vg1 18:18 Jeffery Dawson PA is Hospitalizing Provider. pm1 19:05 Kd Estrada is Hospitalizing Provider. pm1 19:14 Primary Nurse role handed off by Sarina Loomis, RN mw2 20:00 IV discontinued, intact, bleeding controlled, No redness/swelling at site. Pressure vg1 dressing applied. 20:21 Sarina Loomis RN is Primary Nurse. vg1 20:42 Inserted saline lock: 20 gauge in right antecubital area, using aseptic technique. vg1 ,using aseptic technique. Done by KWAN Lehman. 23:27 No provider procedures requiring assistance completed. Patient admitted, IV remains in vg1 place. Administered Medications: 19:08 Drug: LevaQUIN 750 mg Volume: 150 ml; Route: IVPB; Infused Over: 90 mins; Site: right vg1 antecubital; 21:40 Follow up: Response: No adverse reaction; IV Status: Completed infusion vg1 Outcome: 18:18 Decision to Hospitalize by Provider. pm1 23:27 Admitted to Tele accompanied by tech, via wheelchair, room 230, with chart, Report vg1 called to KWAN [place] 23:27 Condition: stable 23:27 Instructed on the need for admit. 23:53 Patient left the ED. vg1 Signatures: Dispatcher [employer] [facility] Jhoana Ward ds1 Bobby Valle, [employer] pm1 Erick Solorzano mw2 Sarina Loomis RN RN vg1 Robbie Leo RN RN ll1 Corrections: (The following items were deleted from the chart) 20:43 20:42 IV discontinued, intact, bleeding controlled, No redness/swelling at site. vg1 Pressure dressing applied, vg1
[2020-08-22] MEDS ORDERED: Levofloxacin 750mg IV 750 MG/150 ML BAG IV ONE (18:56)
--- NOTE | 2020-08-22 23:22 | CON ---
Date of Consultation: 08/22/2020 Reason For Consultation: Atrial fibrillation and GI bleed on Eliquis. History Of Present Illness: This is a 74-year-old male who was recently sent to [facility] for possi ble cardiac bypass. He had a cardiac catheterization there because there was a concern about left ma in disease that did not seem to be significant, so bypass was not done. However, he had an atrial fi brillation, so he was cardioverted to sinus rhythm and started on Eliquis and sent home. Today, he s tarted having bloody bowel movements, so he presented to the emergency room. Feels generally weak. Does not have any chest pain or shortness of breath. The patient apparently has significant dilated cardiomyopathy, which seems to be nonischemic in origin. He was on Lasix. Past Medical History: Nonischemic dilated cardiomyopathy, atrial fibrillation, hypertension, dyslipi demia, asthma, acid reflux, Crohn disease. Medications: Refer to reconciliation sheet for detailed list. Allergies: REVIEWED. Family History: No premature coronary artery disease. There is history of lung cancer and prostate cancer on father's side. Social History: Does not smoke or drink. Does not use any drugs. Review of Systems: All systems reviewed and they were negative except what mentioned in the HPI. Physical Examination: Vital Signs: Reviewed. Head and Neck: Pupils are equal and reactive to light. Intact eye movements. No JVD. No cervical lymphadenopathy. Neck: Supple. Thyroid is not enlarged. Lungs: Clear to auscultation bilaterally. No rhonchi, rales, or crackles. No accessory muscle use. Heart: Regular rate and rhythm. No extra sounds. Abdomen: Soft, nontender. Bowel sounds positive. No organomegaly. No masses or hernia. No rigidi ty or rebound. Extremities: No edema, clubbing, cyanosis. Intact pulses. Skin: No rashes. Neurologic: Alert, awake, oriented x3. No acute focal deficits appreciated. Lymph Nodes: No cervical lymphadenopathy. Investigations: Labs were reviewed. His hemoglobin is 10.5 and creatinine is 1.5. Assessment And Recommendations: Atrial fibrillation, status post recent cardioversion about 2 weeks ago. The patient is with high CHADS-VASc score, will require anticoagulation, however in view of acu te GI bleed, anticoagulation will be stopped. Consult GI. We will plan to transfer patient to the [facility] before once the GI bleed is controlled and the workup is complete for a left atrial franklyn endage closure as this patient should not be without anticoagulation or protection against stroke giv en the fact that he was cardioverted less than 2 weeks ago. The patient understands the plan and agr ees to it. We will initiate the process for the transfer and meanwhile please consult GI and follow up and closely. /ASMITA Voice ID: [id number] Report ID: [id number]
[2020-08-22] MEDS ORDERED: ACETAMINOPHEN 500 MG TAB PO PRN (23:52)
[2020-08-22] MEDS ORDERED: ONDANSETRON 4 MG/2 ML VIAL IV PRN (23:52)
--- NOTE | 2020-08-23 00:19 | P.HP ---
Certification for Inpatient Patient admitted to: Inpatient With expected LOS: >2 Midnights Patient will require the following post-hospital care: None Practitioner: I am a practitioner with admitting privileges, knowledge of patient current condition, hospital course, and medical plan of care. Services: Services provided to patient in accordance with Admission requirements found in Title 42 Section 412.3 of the Code of Federal Regulations <Jeffery Dawson - Last Filed: 08/23/20 00:19> Patient History Date of Service: 08/23/20 Primary Care Provider: Dr. Lora Reason for admission: LGIB History of Present Illness: Mr. Ross is a 74 yo M with dilated cardiomyopathy, chronic atrial fibrillation, HTN, HLD, asthma, GERD, and Crohn disease here today for hematochezia for the past 3 days. He says the blood is bright red or dark red. He is not passing clots and does not report melena, denies pain. The blood is only apparent with BM. He also reports fatigue, SOB, and weakness when walking short distances. He was recently started on Eliquis 5 mg BID for anticoagulation on 08/10/20. Was also taking ASA but was told to discontinue doing so. This month he was diagnosed with nonischemic cardiomyopathy (EF 13%) and chronic afib with recent SKYLER Cardioversion, now wearing LifeVest. He also recently had a cath with no stent placed. No nausea, no vomiting, no fever. Hgb 12.4. PT 18.8. BUN 41. Cr 1.65. GFR 41. BNP 8234. FOBT + for blood. CXR shows mild patchy opacities within left lung may indicate mild pneumonia. CT scan showed mild right lung opacities may indicate mild pneumonia. No acute abnormality involving abdomen/pelvis. 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) -: bilateral breast benign cyst removal, -: right knee surgery -: chemonucleolysis - Family History Mother -: Heart disease, Other (see notes) Notes: mom in heart attack Father -: Cancer - Social History Smoking Status: Never smoker Alcohol use: No CD- Drugs: No Caffeine use: No Place of Residence: Home <Jeffery Dawson - Last Filed: 08/23/20 00:19> Date of Service: 08/23/20 <mata rojas - Last Filed: 08/23/20 19:11> Allergies No Known Allergies Allergy (Unverified 08/23/20 00:06) Home Medications: Fluticasone/Salmeterol [Advair 250-50 Diskus] 1 diskus IH BID 03/26/19 Mesalamine [Delzicol] 1 cap PO BID 07/03/19 Omeprazole 1 tab PO DAILY 07/03/19 Albuterol Sulfate [Proair Hfa] 8.5 gm IH PRN 08/23/20 Amiodarone HCl [Pacerone] 400 mg PO DAILY 08/23/20 Apixaban [Eliquis] 5 mg PO DAILY 08/23/20 Atorvastatin Calcium [Lipitor] 80 mg PO DAILY 08/23/20 Calcium Carbonate 500 mg PO BID 08/23/20 Cetirizine HCl [Zyrtec] 10 mg PO PRN 08/23/20 Furosemide 40 mg PO DAILY 08/23/20 Losartan Potassium 12.5 mg PO DAILY 08/23/20 Metoprolol Succinate [Toprol Xl*] 12.5 mg PO DAILY 08/23/20 Multivit-Min/FA/Lycopen/Lutein [Centrum Silver Tablet] 1 each PO DAILY 08/23/20 Risedronate Sodium 150 mg PO 1X 08/23/20 Spironolactone 25 mg PO DAILY 08/23/20 Review of Systems General: Weakness, Malaise, As per HPI Eyes: Unremarkable ENT: Unremarkable Respiratory: SOB with Excertion Cardiovascular: As per HPI Gastrointestinal: Hematochezia, As per HPI Genitourinary: Unremarkable Musculoskeletal: Unremarkable Integumentary: Unremarkable Neurological: Weakness, As per HPI Lymphatics: Unremarkable <Jeffery Dawson - Last Filed: 08/23/20 00:19> Physical Examination - Vital Signs Temperature: 98.3 F Blood Pressure: 102/80 Pulse: 90 Respirations: 18 Pulse Ox (%): 97 - Physical Exam General: Alert, In no apparent distress, Oriented x3, Cooperative HEENT: Atraumatic, Normocephalic, PERRLA, Mucous membr. moist/pink, EOMI, Sclerae nonicteric Neck: Supple, 2+ carotid pulse no bruit, JVD not distended, No Thyromegaly, No LAD Respiratory: Clear to auscultation bilaterally, Normal air movement Cardiovascular: Normal pulses, No gallops, No rubs, Edema, Irregular heart rate/rhythm, Abnormal S1 S2 Capillary refill: <2 Seconds Gastrointestinal: Normal bowel sounds, Soft and benign, Non-distended, No ascites, No tenderness, No masses, No rebound, No guarding, Other (FOBT +) Musculoskeletal: No clubbing, No swelling, No contractures, No erythema, No tenderness, No warmth Integumentary: No rashes, No breakdown, No significant lesion, No tenderness/swelling, No erythema, No warmth, No cyanosis Neurological: Normal gait, Normal speech, Normal strength at 5/5 x4 extr, Normal tone, Sensation intact, Cranial nerves 3-12 intact, Normal affect Lymphatics: No axilla or inguinal lymphadenopathy - Studies Laboratory Data (last 24 hrs) 08/22/20 17:08: PT 18.8 H, INR 1.63 08/22/20 17:08: WBC 7.20, Hgb 12.4 L, Hct 37.8 L, Plt Count 224 08/22/20 17:08: Sodium 142, Potassium 3.7, BUN 41 H, Creatinine 1.65 H, Glucose 121 H, Magnesium 2.4, Total Bilirubin 0.9, AST 28, ALT 39, Alkaline Phosphatase 72 Microbiology Data (last 24 hrs): 08/22/20 17:49 Stool Occult Blood - Final <Jeffery Dawson - Last Filed: 08/23/20 00:19> - Studies Microbiology Data (last 24 hrs): 08/22/20 17:49 Stool Occult Blood - Final <mata rojas - Last Filed: 08/23/20 19:11> Assessment and Plan - Problems (Diagnosis) (1) Lower GI bleed Status: Acute Plan: consulted GI for further recommendations. FOBT+ for blood. H/H q4hr. Ceftriaxone 1g IV daily and metronidazole 500mg q8hr. will hold Eliquis for now. DVT prophylaxis with SCDs. (2) Asthma Status: Acute Plan: stable. continue with home medications. Qualifiers: Asthma severity: unspecified severity Asthma persistence: unspecified Asthma complication type: unspecified Qualified Code(s): J45.909 - Unspecified asthma, uncomplicated (3) Chronic atrial fibrillation Status: Acute Plan: reconcile and continue with home medications. cardiology consulted. will hold Eliquis for now. (4) Nonischemic cardiomyopathy Status: Acute Plan: reconcile and continue home medications. receiving 20 mg IV Lasix BID. (5) GERD (gastroesophageal reflux disease) Status: Acute Plan: reconcile and continue home medications Qualifiers: Esophagitis presence: esophagitis presence not specified Qualified Code(s): K21.9 - Gastro-esophageal reflux disease without esophagitis (6) Hypertension Status: Acute Plan: reconcile and continue home medications. Qualifiers: Hypertension type: essential hypertension Qualified Code(s): I10 - Essential (primary) hypertension (7) Crohn disease Status: Acute Plan: reconcile and continue with home medications. Qualifiers: Gastrointestinal tract location: unspecified location Digestive disease complication type: unspecified complication Qualified Code(s): K50.919 - Crohn's disease, unspecified, with unspecified complications Discharge Plan: Home Plan to discharge in: 48 Hours - Advance Directives Does patient have a Living Will: Yes Does patient have a Durable POA for Healthcare: Yes - Code Status/Comfort Care Code Status Assessed: Yes (full code) Critical Care: No Time Spent Managing Pts Care (In Minutes): 70 <Jeffery Dawson - Last Filed: 08/23/20 00:19> - Problems (Diagnosis) (1) Lower GI bleed Status: Acute (2) Chronic systolic heart failure Status: Acute (3) Chronic atrial fibrillation Status: Acute (4) Crohn disease Status: Acute Qualifiers: Gastrointestinal tract location: unspecified location Digestive disease complication type: unspecified complication Qualified Code(s): K50.919 - Crohn's disease, unspecified, with unspecified complications (5) Hypertension Status: Acute Qualifiers: Hypertension type: essential hypertension Qualified Code(s): I10 - Essential (primary) hypertension (6) Nonischemic cardiomyopathy Status: Acute Physician Review: Patient Assessed, Agree with Above Assessment and Plan Physician Review Additional Text: Lower GI bleed. History of nonischemic cardiomyopathy Severe LV dysfunction. Plan: Patient is high risk for cardiac thrombus and CVA. Rectal bleed. He reports history of hemorrhoid. Cardiology input appreciated. Patient not a candidate for surgical procedure at this time. Monitor H&H. <mata rojas - Last Filed: 08/23/20 19:11>
[2020-08-23 00:43] VITALS: BMI 26.2
[2020-08-23 01:30] LABS: Hematocrit 37.4 % (39.6-49.0)
[2020-08-23] MEDS ORDERED: ALBUTEROL INHALER 60 PUFF/8 GM IH PRN (03:00)
[2020-08-23 03:48] LABS: Urine Appearance CLEAR; Urine Bilirubin NEGATIVE (NEG); Urine Blood 1+ (NEG); Urine Color YELLOW; Urine Glucose NEGATIVE (NEG); Urine Protein NEGATIVE (NEG); Urine Urobilinogen 0.2 mg/dL (0.2-1.0)
[2020-08-23 03:49] LABS: Urine Microscopic Reflex ORDER UMIC
[2020-08-23 05:46] LABS: Absolute Lymphocytes (CBC) 1.9 K/uL (0.7-4.9); Basophils % 0.7 % (0-1.3); Hematocrit 36.4 % (39.6-49.0); Lymphocytes % 25.3 % (15.3-44.8); MPV 8.7 fL (7.6-11.3); RBC Red Blood Cell Count 3.85 M/uL (4.33-5.43)
[2020-08-23 05:48] LABS: Urine Bacteria <20 /HPF (NONE SEEN); Urine RBC <5 /HPF (NONE SEEN)
[2020-08-23 06:03] LABS: Albumin 2.8 g/dL (3.4-5.0); Bilirubin Total 1.2 mg/dL (0.2-1.0); Potassium 3.6 mmol/L (3.5-5.1); Protein, Total 6.2 g/dL (6.4-8.2)
[2020-08-23 06:17] LABS: Protime INR 1.53
--- NOTE | 2020-08-23 06:21 | EKG ---
Test Date: 2020-08-22 Test Time: 15:59:47 Fruit Dumper: DAYRON MEASUREMENT RESULTS: Intervals: Rate: 102 GA: QRSD: 158 QT: 420 QTc: 547 [place]: P: GA: QRS: 3 T: 81 INTERPRETIVE STATEMENTS: Atrial fibrillation with rapid ventricular response Left bundle branch block Abnormal ECG Compared to ECG 08/01/2020 18:12:14 No significant changes Electronically Signed On 08-23-20 06:19:37 CDT by Alfredito Mayorga
--- NOTE | 2020-08-23 07:32 | PN ---
Date of Progress Note: 08/23/2020 Subjective: Mr. Ross is a 74-year-old male with history of atrial fibrillation, dilated cardiomyo jenny with an ejection fraction of 13%, who came in with GI bleed. He has been on Eliquis and multip le medications for his congestive heart failure. He was recently evaluated with a catheterization th at apparently showed [id number] left main disease, moderate ostial circumflex disease by IVUS tara Ross. A LifeVest was placed on him. He was being treated medically for his atrial fibrillation , congestive heart failure and hypertension, but he came in with bleed, was seen by Dr. Novak yester day. There will be consideration for Watchman procedure because he is at very high risk for clot. I will discuss the case further with Dr. Novak, see what the plan is. For now continue medical thera py, hold Eliquis. His hemoglobin is 12. His creatinine is 1.65. His BNP is 8239. His chest x-ray showed possible pneumonia. I will continue to follow him. VERA/ASMITA Voice ID: [id number] Report ID: [id number]
[2020-08-23] MEDS ORDERED: DULERA 100/5 (MOMETASONE/FORMOTEROL) INHALER IH SCH (08:00)
[2020-08-23 08:56] VITALS: BP 111/71; TEMP 97.1
[2020-08-23] MEDS ORDERED: ATORVASTATIN 80 MG TAB PO SCH (09:00)
[2020-08-23] MEDS ORDERED: METRONIDAZOLE 500mg IVPB 500 MG/100 ML BAG IV SCH (09:00)
[2020-08-23] MEDS ORDERED: SPIRONOLACTONE 25 MG TABLET PO SCH (09:00)
[2020-08-23] MEDS ORDERED: METOPROLOL XL 25 MG TAB PO SCH (09:00)
[2020-08-23] MEDS ORDERED: CEFTRIAXONE/SWI 1gm 1 GM/10 ML SYR IV SCH (09:00)
[2020-08-23] MEDS ORDERED: FUROSEMIDE 20 MG/ 2ML VIAL IV SCH (09:00)
[2020-08-23] MEDS ORDERED: CEFTRIAXONE 1 GM/NS 50 ML 1 GM/50 ML BAG IV SCH (09:00)
[2020-08-23] MEDS ORDERED: AMIODARONE HCL 200 MG TAB PO SCH (09:00)
[2020-08-23] MEDS ORDERED: PANTOPRAZOLE 40MG TABLET PO SCH (09:00)
[2020-08-23] MEDS ORDERED: LOSARTAN POTASSIUM 50 MG TABLET PO SCH (09:00)
[2020-08-23 09:14] LABS: Hematocrit 36.5 % (39.6-49.0)
[2020-08-23] MEDS ORDERED: POTASSIUM 25 MEQ EFFERV TAB PO ONE (10:00)
[2020-08-23 10:54] VITALS: O2SAT 96
--- NOTE | 2020-08-23 12:55 | P.DS ---
Admission Date: 08/22/20 Discharge Date: 08/23/20 Primary Care Provider: Dr. Lora Disposition: ROUTINE DISCHARGE Discharge Condition: FAIR Reason for Admission: LGIB Consultations: Cardiology - Problems (1) Lower GI bleed Current Visit: Yes Status: Acute (2) Chronic systolic heart failure Current Visit: Yes Status: Acute (3) Chronic atrial fibrillation Current Visit: Yes Status: Acute (4) Crohn disease Current Visit: Yes Status: Acute Qualifiers: Gastrointestinal tract location: unspecified location Digestive disease complication type: unspecified complication Qualified Code(s): K50.919 - Crohn's disease, unspecified, with unspecified complications (5) Hypertension Current Visit: Yes Status: Acute Qualifiers: Hypertension type: essential hypertension Qualified Code(s): I10 - Essential (primary) hypertension (6) Nonischemic cardiomyopathy Current Visit: Yes Status: Acute Brief History of Present Illness: 74-year-old gentleman with a history of dilated cardiomyopathy, recent cardiac catheterization, no stent, recent SKYLER with cardioversion of atrial fibrillation, currently on amiodarone and Eliquis presented to the emergency department with a complaint of having seen blood in the stool for 3 days. Patient denied any melena or hematemesis. He reported blood stains stool, no profuse rectal bleed. His stool for hemoccult positive. Patient was hospitalized further management. Hospital Course: Patient placed under observation on the medical floor. Hemoglobin monitored were stable at 11. The patient bleeding was only occurring with bowel movement. Patient seen and evaluated by cardiology who recommended outpatient evaluation for left atrial appendage closure. Patient has very high risk for cardiac thromboembolism given his low EF, and also high risk for CVA from atrial fibrillation. I believe at the moment the benefits of anticoagulation outweighs risk of bleeding. Patient reports history of hemorrhoidal bleeding. Dr. Day plans to follow with patient in the office for further evaluation. Given his stable hemoglobin I will more inclined to restart his Eliquis given his high risk. He is informed to stop taking the Eliquis if he bleeds again. Vital Signs/Physical Exam: Temp Pulse Resp BP Pulse Ox 97.1 F 84 18 111/71 96 08/23/20 08:00 08/23/20 08:00 08/23/20 08:00 08/23/20 08:00 08/23/20 08:00 General: Alert, In no apparent distress, Oriented x3 HEENT: Mucous membr. moist/pink Neck: Supple, JVD not distended Respiratory: Normal air movement Cardiovascular: No edema, Normal S1 S2 Gastrointestinal: Normal bowel sounds, Soft and benign, Non-distended, No tenderness Musculoskeletal: No swelling, No tenderness Integumentary: No rashes, No erythema Neurological: Normal strength at 5/5 x4 extr, Cranial nerves 3-12 intact Laboratory Data at Discharge: WBC 7.30 K/uL (4.3-10.9) 08/23/20 05:11 Hgb Cancelled 08/23/20 23:52 Hct Cancelled 08/23/20 23:52 Plt Count 187 K/uL (152-406) 08/23/20 05:11 PT 17.7 SECONDS (9.5-12.5) H 08/23/20 05:11 INR 1.53 08/23/20 05:11 APTT 33.4 SECONDS (24.3-36.9) 08/23/20 05:11 Sodium 143 mmol/L (136-145) 08/23/20 05:11 Potassium 3.6 mmol/L (3.5-5.1) 08/23/20 05:11 BUN 35 mg/dL (7-18) H 08/23/20 05:11 Creatinine 1.36 mg/dL (0.55-1.3) H 08/23/20 05:11 Glucose 95 mg/dL (74-106) 08/23/20 05:11 Magnesium 2.4 mg/dL (1.8-2.4) 08/22/20 17:08 Total Bilirubin 1.2 mg/dL (0.2-1.0) H 08/23/20 05:11 AST 22 U/L (15-37) 08/23/20 05:11 ALT 33 U/L (12-78) 08/23/20 05:11 Alkaline Phosphatase 59 U/L (45-117) 08/23/20 05:11 Home Medications: Fluticasone/Salmeterol [Advair 250-50 Diskus] 1 diskus IH BID 03/26/19 Mesalamine [Delzicol] 1 cap PO BID 07/03/19 Omeprazole 1 tab PO DAILY 07/03/19 Albuterol Sulfate [Proair Hfa] 8.5 gm IH PRN 08/23/20 Amiodarone HCl [Pacerone] 400 mg PO DAILY 08/23/20 Apixaban [Eliquis] 5 mg PO DAILY 08/23/20 Atorvastatin Calcium [Lipitor] 80 mg PO DAILY 08/23/20 Calcium Carbonate 500 mg PO BID 08/23/20 Cetirizine HCl [Zyrtec] 10 mg PO PRN 08/23/20 Furosemide 40 mg PO DAILY 08/23/20 Losartan Potassium 12.5 mg PO DAILY 08/23/20 Metoprolol Succinate [Toprol Xl*] 12.5 mg PO DAILY 08/23/20 Multivit-Min/FA/Lycopen/Lutein [Centrum Silver Tablet] 1 each PO DAILY 08/23/20 Risedronate Sodium 150 mg PO 1X 08/23/20 Spironolactone 25 mg PO DAILY 08/23/20 Diet: AHA Activity: Ad raisa Followup: Mando Lora MD [Primary Care Provider] - Gil Day MD [ASSOCIATE-ACTIVE - CAN ADMIT] - 1 Week
== END 2020-08-23 13:58 | disposition home or self-care (01) ==
LOC: ER 15:19 → ERHOLD 20:36 → 2ND 23:49
PROVIDERS: ADMIT Internal Medicine; ATTEND Internal Medicine
DX: K92.2 Gastrointestinal hemorrhage, unspecified (principal); R19.5 Other fecal abnormalities; I11.0 Hypertensive heart disease with heart failure; I50.22 Chronic systolic (congestive) heart failure; I48.20 Chronic atrial fibrillation, unspecified; K50.90 Crohn's disease, unspecified, without complications; I42.8 Other cardiomyopathies; Q20.8 Other congenital malformations of cardiac chambers and connections; K21.9 Gastro-esophageal reflux disease without esophagitis; I25.10 Atherosclerotic heart disease of native coronary artery without angina pectoris; E78.5 Hyperlipidemia, unspecified; J45.909 Unspecified asthma, uncomplicated; M54.9 Dorsalgia, unspecified; M79.606 Pain in leg, unspecified; G89.29 Other chronic pain; I34.0 Nonrheumatic mitral (valve) insufficiency; Z79.01 Long term (current) use of anticoagulants; Z98.890 Other specified postprocedural states; Z80.1 Family history of malignant neoplasm of trachea, bronchus and lung; Z80.42 Family history of malignant neoplasm of prostate
CPT/HCPCS: 96365; 93005; 87040 ×2; 85025 ×2; 80048; 36415; 86900; 83735; 86850; 85610 ×2; 82565; 86901; 80076; 85730; 82272; 85018 ×2; 85014 ×2; 84484; 80053; 83880; 74176; 71045; 99285; 96366; J1940; J0696; G0378 ×2; 81003; 81015; J7606

== ENCOUNTER 2020-12-22 06:32 | Day surgery (SDC) | payer OTHER ==
[2020-12-21 11:50] LABS: Absolute Lymphocytes (CBC) 1.7 K/uL (0.7-4.9); Basophils % 0.7 % (0-1.3); Hematocrit 36.5 % (39.6-49.0); Lymphocytes % 20.9 % (15.3-44.8); MPV 7.2 fL (7.6-11.3)
[2020-12-21 11:54] LABS: Protime INR 1.53
[2020-12-21 12:06] LABS: Potassium 4.6 mmol/L (3.5-5.1)
[2020-12-22] MEDS ORDERED: NA CHLORIDE 0.9% 500 ML ONE (07:09)
[2020-12-22] MEDS ORDERED: FLUMAZENIL 0.1 MG/ML (5 mL VIAL) IV ONE (07:43)
[2020-12-22] MEDS ORDERED: MIDAZOLAM HCL 5 ML ONE (07:43)
[2020-12-22] MEDS ORDERED: ATROPINE SULF 1 MG/10 ML SYR IV ONE (07:44)
[2020-12-22] MEDS ORDERED: MIDAZOLAM HCL 2 MG/2 ML INJ ONE (07:44)
[2020-12-22] MEDS ORDERED: FENTANYL CITR 100 MCG/2 ML ONE (07:57)
--- NOTE | 2020-12-22 09:05 | OP ---
Surgeon: Alfredito Mayorga MD Reason For Admission: Direct current cardioversion. Indication: Atrial fibrillation with rapid ventricular response and worsening congestive heart failu re, unresponsive to amiodarone. Procedure In Detail: The patient was brought to the production laborer. He was given Versed 5 mg for sedation . He was given some fentanyl as well. He received 1 shock of 100 joules, which did not convert him and he received another shock of 200 joules and converted him to sinus rhythm. There were no complic ations. No blood loss. Postoperative Diagnosis: Successful cardioversion of atrial fibrillation to sinus rhythm. We will continue his medical therapy including amiodarone and including Eliquis. I am going to have him stop his Entresto because of worsening renal failure. He will continue Lasix and Aldactone. He can go home when he wakes up and I will see him in the office in a few days. VERA/ASMITA Voice ID: [id number] Report ID: [id number]
[2020-12-22 13:02] VITALS: TEMP 96.7
[2020-12-22 13:03] VITALS: O2SAT 100
[2020-12-22 13:04] VITALS: BP 103/66
--- NOTE | 2020-12-27 12:43 | EKG ---
Test Date: 2020-12-22 Test Time: 06:58:03 Metal Caster: MICKEY MEASUREMENT RESULTS: Intervals: Rate: 60 PA: 280 QRSD: 174 QT: 500 QTc: 500 [place]: P: 79 PA: 280 QRS: -12 T: 62 INTERPRETIVE STATEMENTS: Sinus rhythm with 1st degree AV block Left bundle branch block Abnormal ECG Compared to ECG 08/22/2020 15:59:47 First degree AV block now present Atrial fibrillation no longer present Electronically Signed On 12-27-20 12:38:11 CDT by Alfredito Mayorga
== END 2020-12-22 09:12 | disposition home or self-care (01) ==
LOC: CCL 06:32
DX: I48.20 Chronic atrial fibrillation, unspecified (principal); I50.21 Acute systolic (congestive) heart failure; Z91.041 Radiographic dye allergy status
CPT/HCPCS: 85025; 80048; 36415; 85610; 85730; 92960; J2250; J3010; J7040; 93005

== ENCOUNTER 2021-04-25 10:54 | Emergency (ER) | payer OTHER ==
--- OUTSIDE RECORDS SUMMARY | 2021-04-25 10:58 | XMS REPORT | Continuity of Care Document ---
:1945 Author Organization [facility] t Address [address] [place] [address] Care Team Providers Name Role Phone CAR REYES Attending Clinician Unavailable ARLEY ZARCO Attending Clinician Unavailable GRAYSON CANALES Attending Clinician Unavailable CAR REYES Admitting Clinician Unavailable ARLEY ZARCO Admitting Clinician Unavailable GRAYSON CANALES Admitting Clinician Unavailable Payers Payer Name Policy Type Policy Number Effective Date Expiration Date S galilea [employer] MEDICARE HMO [id number] 2020 POS 00:00:00 Problems This patient has no known problems. Allergies, Adverse Reactions, Alerts Allergy Allergy Status Severity Reaction(s) Onset Inactive Treating Comm ents Source Name Type Date Date Clinician IODINE Allergy Active High Hives [facility]: [facility] [employer] Medications This patient has no known medications. Vital Signs Vital Name Observation Time Observation Value Comments Source WEIGHT 2020-08-04 05:00:00 118.752 kg HEIGHT 2020-08-03 23:00:00 203.2 cm WEIGHT 2020-08-04 05:00:00 118.752 kg HEIGHT 2020-08-03 23:00:00 203.2 cm Procedures This patient has no known procedures. Encounters Start End Encounter Admission Attending Care Care Encounter Source Date/Time Date/Time Type Type Clinicians Facility Department ID 2021-03-11 Outpatient [facility] Surgery [id number] SLE 07:15:52 SCAR JACOBS 2021-03-11 Inpatient KATHRYN ZARCO Surgery [id number] SLE 06:10:56 KELSEA 2020-08-03 Inpatient UR KATHRYN CANALES Cardiovascu [id number] SLE 22:49:00 MARIANN stoner Results Test Description Test Time Test Comments Results Result Comments Source BASIC METABOLIC PANEL 2020-08-09 06:07:00 Test Item Value Reference Range Interpretation Comme nts SODIUM (BEAKER) (test code 141 meq/L 136-145 = 381) POTASSIUM (BEAKER) (test 3.7 meq/L 3.5-5.1 code = 379) CHLORIDE (BEAKER) (test 108 meq/L 98-107 H code = 382) CO2 (BEAKER) (test code = 24 meq/L 22-29 355) BLOOD UREA NITROGEN 21 mg/dL 7-21 (BEAKER) (test code = 354) CREATININE (BEAKER) (test 1.07 mg/dL 0.57-1.25 code = 358) GLUCOSE RANDOM (BEAKER) 104 mg/dL 70-105 (test code = 652) CALCIUM (BEAKER) (test code 7.7 mg/dL 8.4-10.2 L = 697) EGFR (BEAKER) (test code = 68 mL/min/1.73 sq m ESTIMATED GFR IS NOT 1092) ACCURATE CRE ATININE CLEARANCE IN NV EDICTING GLOMERULAR FILT RATION RATE. ESTIMATED GFR IS NOT APPLICABLE FOR DIALYSIS PATIENTS. Brass Plater ID - ADMINCBC (HEMOGRAM ONLY)2020-08-09 05:33:00 Test Item Value Reference [...] (BEAKER) (test code = 413) BASIC METABOLIC [id number] 05:53:00 Test Item Value Reference Range Interpretation [...] S NOT APPLICABLE FOR DIALYSIS PATIEN TS. Brass Plater ID - EDASICBC (HEMOGRAM ONLY)2020-08-08 05:24:00 Test [...] (BEAKER) (test code = 413) BASIC METABOLIC [id number] 06:26:00 Test Item Value Reference Range Interpretation [...] S NOT APPLICABLE FOR DIALYSIS PATIEN TS. Brass Plater ID - HERBIE MC (HEMOGRAM ONLY)2020-08-07 06:02:00 Test Item Value Reference [...] (BEAKER) (test code = 413) MR, CARDIAC, [id number] 18:43:00With viability studyUnlisted Reason for Exam - Click Yes and Enter Reason Below->NoWith viabilitystudy [facility] 1945 Sex: MFINAL REPORT [...] left ventricular and valvular function. Technique: Stephanie [employer] 1.5 Hailey MRI scanner.* Turbo spin echo [...] imaged mitral valve regurgitation. Signed: Edouard Gatica MDReport Verified Date/Time: 08/06/2020 18:43:25 [id number] 10:32:00 Test Item Value Reference Range Interpretation Comments ACTIVATED CLOTTING TIME 246 sec : 74 -137 seconds, (BEAKER) (test code = Baseli ne: TESTED AT 441) [facility] [address] [place], [address]: Brass Plater/Techni theodore ID = [id number] for [place] NIRAJ EVERETT BASIC METABOLIC [id number] 07:09:00 Test Item Value Reference Range Interpretation [...] S NOT APPLICABLE FOR DIALYSIS PATIEN TS. Brass Plater ID - EDASICBC (HEMOGRAM ONLY)2020-08-06 06:31:00 Test [...] WBC 0-0 (BEAKER) (test code = 413) CALCIUM, [id number] 05:46:00 Test Item Value Reference Range Interpretation Comments CALCIUM IONIZED (BEAKER) (test 1.05 mmol/L 1.12-1.27 L code = 698) PH, BLOOD (BEAKER) (test code = 7.48 1810) BASIC METABOLIC [id number] 05:44:00 Test Item Value Reference Range Interpretation [...] S NOT APPLICABLE FOR DIALYSIS PATIEN TS. Brass Plater ID - DBCBC W/PLT COUNT & AUTO [id number] 05:37:00 Test Item Value Reference Range Interpretation [...] (test code = 2801) RAD, CHEST, 2 [id number] 01:10:00Reason for exam:->sob [facility] : 1945 Sex: MFINAL REPORT CLINICAL HISTORY: Shortness of breath The upright images of the chest are submitted. COMPARISON:None. The cardiac silhouette is within normal limits for size. There is atherosclerotic calcification of the tortuous aorta. There are small bilateral pleural effusions. There is no focal consolidation, pneumothorax, evidence of overt pulmonary edema or acutebony abnormality. Signed: Jose Kim Verified Date/Time: 08/05/2020 01:10:48 POCT-GLUCOSE [id number] 17:57:00 Test Item Value Reference Range Interpretation Comments POC-GLUCOSE METER 149 mg/dL 70-110 H : TESTED A T [facility] [address] (TARA) (test code = [place] [facility], 1538) [address]: Brass Plater/Techni theodore ID = [id number] for ARUNA OWUSU HEMOGLOBIN AND [id number] 16:53:00 Test Item Value Reference Range Interpretation Comments HEMOGLOBIN (BEAKER) (test code = 14.2 GM/DL 13.7-17.5 410) HEMATOCRIT (BEAKER) (test code = 43.4 % 40.1-51.0 411) Brass Plater ID - [id number] [id number] 09:27:00 Test Item Value Reference Range Interpretation [...] failure, acidosis, acute neurological disease, and persistent tachyarrhythmia.Brass Plater ID - ADMINHEMOGLOBIN A1C 2020-08-04 08:42:00 Test Item Value Reference Range Interpretation Comments HEMOGLOBIN A1C (TARA) (test code = 6.5 % 4.3-6.1 H 368) SARS-COV2/RT-PCR ([facility])2020-08-04 08:28:00 Test Item Value Reference Range Interpretation Comments SARS-COV2/RT-PCR (test Negative Not Detected, Negative, code = 1569538) See external report for linked test SARS-COV-2 PERFORMING LAB [facility] (test code = 3735409) Negative result for this test determines that [...] 564(g) of the Act.Fact Sheet for Healthcare Providers:https://www.[employer]/sites/default/files/product/documents/Fact_Shee w_EP_Ebpofazga_Jnbk_USVS-GpX-2.pdfFact Sheet for Healthcare Patients:https://www.[employer]/sites/default/files/product/ documents/Irhs_Axhlq_Njgqzwqi_Iyzy_WIKN-ShD-5.pdfPerforming Laboratory:[place] [address], [place] [address]KGNZI METABOLIC PANEL 2020-08-04 05:54:00 Test Item Value [...] S NOT APPLICABLE FOR DIALYSIS PATIEN TS. Brass Plater ID - HERBIE MCBC W/PLT COUNT & AUTO [id number] 05:19:00 Test Item Value Reference Range Interpretation [...] 0-1 PERCENT (BEAKER) (test code = 2801) URINALYSIS WITH MICROSCOPIC IF [id number] 03:14:00 Test Item Value Reference Range Interpretation [...] = 463) SOURCE(BEAKER) (test code = 2795) Brass Plater ID - [auto]Brass Plater ID - QCURINALYSIS [id number] 03:14:00 Test Item Value Reference Range Interpretation Comments RBC UA (BEAKER) (test code = 519) 20 /HPF WBC UA (BEAKER) (test code = 520) < /HPF SQUAMOUS EPITHELIAL (BEAKER) (test 2 /HPF code = 516) Brass Plater ID - QCCREATININE, RANDOM [id number] 02:25:00 Test Item Value Reference Range Interpretation Comments CREATININE URINE (BEAKER) (test 100.7 mg/dL code = 375) Reference Range: No NormalsOperator ID - HERBIE MSODIUM, RANDOM [id number] 02:25:00 Test Item Value Reference Range Interpretation Comments SODIUM URINE (BEAKER) (test code = 42 meq/L 243) Reference Range: No NormalsOperator ID - HERBIE MUREA NITROGEN, RANDOM URINE 2020-08-04 02:25:00 Test Item Value Reference Range Interpretation Comments UREA NITROGEN URINE (BEAKER) (test 1283 mg/dL code = 538) Reference Range: No NormalsOperator ID - HERBIE MBASIC METABOLIC [id number] 02:22:00 Test Item Value Reference Range Interpretation [...] S NOT APPLICABLE FOR DIALYSIS PATIEN TS. Brass Plater ID - HERBIE [id number] 02:12:00 Test Item Value Reference Range Interpretation Comments MAGNESIUM (BEAKER) (test code = 2.1 mg/dL 1.6-2.6 627) Brass Plater ID - HERBIE MLIPID [id number] 02:12:00 Test Item Value Reference Range Interpretation Comments TRIGLYCERIDES (BEAKER) (test code = 72 mg/dL 540) CHOLESTEROL (BEAKER) (test code = 135 mg/dL 631) HDL CHOLESTEROL (BEAKER) (test code 38 mg/dL = 976) LDL CHOLESTEROL CALCULATED (BEAKER) 83 mg/dL (test code = 633) Triglyceride Reference Range: Low Risk <150 Borderline 150-199 High Risk 200-499 Very High Risk >=500Cholesterol Reference Range: Low Risk <200 Borderline 200-239 High Risk >240HDL Cholesterol Reference Range: Low Risk >=60 High Risk <40LDL Cholesterol Reference Range: Optimal <100 Near Optimal 100-129 Borderline 130-159 High 160-189 Very High >=190 Brass Plater ID - HERBIE MHEPATIC FUNCTION [id number] 02:12:00 Test Item Value Reference Range Interpretation [...] code = 75 U/L 6-55 H 347) Brass Plater ID - HERBIE MB-TYPE NATRIURETIC FACTOR (BNP)2020-08-04 02:12:00 Test Item Value Reference Range Interpretation Comments B-TYPE NATRIURETIC PEPTIDE 1067 pg/mL 0-100 H (BEAKER) (test code = 700) Brass Plater ID - HERBIE MPROTHROMBIN [id number] 01:50:00 Test Item Value Reference Range Interpretation Comments PROTIME (BEAKER) 14.6 seconds 11.9-14.2 H (test code = 759) INR (BEAKER) (test 1.17 See_Comment [Automat ed message] code = 370) The system [employer] generated this result transmitted ref erence range: [...] to initiating heparinCBC W/PLT COUNT & AUTO [id number] 01:29:00 Test Item Value Reference Range Interpretation [...]
--- NOTE | 2021-04-25 11:41 | ER ---
Nurse's Notes [facility] Name: Felipe Ross Age: 75 yrs Sex: Male : 1945 Arrival Date: 04/25/2021 Time: 10:56 Bed 3 Private MD: Diagnosis: Varicose vein rupture distal left extremity Presentation: 04/25 10:56 Chief complaint: EMS states: "pt reported having a scab on his lower left leg that jd3 happened to come off in the shower. he said he had been dealing with the spot for awhile. he said it had some force behind the bleed, but we were able to stop it with a pressure dressing. denies any injury or pain.". Coronavirus screen: At this time, the client does not indicate any symptoms associated with coronavirus-19. Ebola Screen: Patient negative for fever greater than or equal to 101.5 degrees Fahrenheit, and additional compatible Ebola Virus Disease symptoms. Initial Sepsis Screen: Does the patient meet any 2 criteria? No. Patient's initial sepsis screen is negative. Does the patient have a suspected source of infection? No. Patient's initial sepsis screen is negative. Risk Assessment: Do you want to hurt yourself or someone else? Patient reports no desire to harm self or others. Onset of symptoms was April 25, 2021. 10:56 Method Of Arrival: EMS: [facility] jd3 10:56 Acuity: SYDNEE 4 jd3 Historical: - Allergies: 11:00 No Known Allergies; jd3 - Home Meds: 11:30 Zyrtec 10 mg Oral tab 1 tab once daily [Active]; benazepril 20 mg Oral tab 1 tab once jd3 daily [Active]; acetaminophen-codeine 300-30 mg Oral tab every 4 hours [Active]; Advair Diskus 250-50 mcg/dose Inhl dsdv 1 puff 2 times per day [Active]; benazepril-hydrochlorothiazide 20-12.5 mg Oral tab 1 tab once daily [Active]; calcium citrate 500 mg plus Vit D 500 IU Oral tab daily [Active]; Centrum Silver Oral [Active]; Claritin-D 12 Hour 5-120 mg Oral Tb12 [Active]; mesalamine DR 400 mg Oral 1 cap 2 times per day [Active]; omeprazole 20 mg Oral cpDR 1 cap once daily [Active]; ProAir HFA 90 mcg/actuation inhalation HFAA [Active]; Remicade 100 mg intravenous solr every 8 wks [Active]; risedronate 150 mg Oral tab 1 tab once moly [Active]; Vitamin C 500 mg Oral tab twice a day [Active]; - PMHx: 11:00 Atrial Fib; Chronic back/leg pain; Hypertension; Mitral Valve Regurgitation; herniated 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 - Social history:: Smoking status: Patient denies any tobacco usage or history of. Screenin:28 Abuse screen: Denies threats or abuse. Nutritional screening: No deficits noted. jd3 Tuberculosis screening: No symptoms or risk factors identified. Fall Risk Ambulatory Aid- None/Bed Rest/Nurse Assist (0 pts). Gait- Normal/Bed Rest/Wheelchair (0 pts) Mental Status- Oriented to own ability (0 pts). Total Marsh Fall Scale indicates No Risk (0-24 pts). Assessment: 11:24 General: Appears in no apparent distress. comfortable, Behavior is calm, cooperative, jd3 appropriate for age. Pain: Denies pain. Neuro: Level of Consciousness is awake, alert, obeys commands, Oriented to person, place, time, situation. Cardiovascular: Denies chest pain, Capillary refill < 3 seconds Patient's skin is warm and dry. Respiratory: Airway is patent Respiratory effort is even, unlabored, Respiratory pattern is regular, symmetrical, Denies cough, shortness of breath. GI: No signs and/or symptoms were reported involving the gastrointestinal system. : No signs and/or symptoms were reported regarding the genitourinary system. EENT: No signs and/or symptoms were reported regarding the EENT system. Derm: Skin is intact, Skin is dry, Skin is normal, Skin temperature is warm Wound noted left medial ankle Wound is small abrasion. bleeding controlled with pressure dressing. cleaned and clean dressing applied. no bleeding at this time. Musculoskeletal: No signs and/or symptoms reported regarding the musculoskeletal system. 11:48 Reassessment: Patient appears in no apparent distress at this time. Patient and/or jd3 family updated on plan of care and expected duration. Pain level reassessed. Patient is alert, oriented x 3, equal unlabored respirations, skin warm/dry/pink. Patient denies pain at this time. Vital Signs: 11:01 BP 140 / 64; Pulse 67; Resp 16 S; Temp 97.3(TE); Pulse Ox 99% on R/A; Weight 107.95 kg jd3 (R); Height 6 ft. 8 in. (203.20 cm) (R); Pain 0/10; 11:01 Body Mass Index 26.14 (107.95 kg, 203.20 cm) jd3 ED Course: 10:56 Patient arrived in ED. jd3 11:00 Triage completed. jd3 11:00 Bereket Bocanegra MD is Attending Physician. kdr 11:02 Arm band placed on. jd3 11:16 Harjeet Florence, RN is Primary Nurse. jd3 11:28 Patient has correct armband on for positive identification. Bed in low position. Call jd3 light in reach. Side rails up X 1. Pulse ox on. NIBP on. 11:29 Dressings: Kerlix X 1; left medial ankle 4X4s X 1; left medial ankle. as6 11:47 No provider procedures requiring assistance completed. Patient did not have IV access jd3 during this emergency room visit. Administered Medications: No medications were administered Outcome: 11:40 Discharge ordered by . kdr 11:47 Discharged to home ambulatory, with family. jd3 11:47 Condition: stable 11:47 Discharge instructions given to patient, Instructed on discharge instructions, follow up and referral plans. Demonstrated understanding of instructions, follow-up care. 11:48 Patient left the ED. jd3 Signatures: Bereket Bocanegra MD MD kdr Harjeet Florence, KWAN BOWENS jBaltazar Jain RN RN as6 Corrections: (The following items were deleted from the chart) 11:01 10:56 Acuity: SYDNEE 3 jd3 jd3 11:16 11:01 Pulse 67bpm; Resp 16bpm; Spontaneous; Pulse Ox 99% RA; Temp 97.3F Temporal; jd3 107.95 kg Reported; Height 6 ft. 8 in. Reported; BMI: 26.1; Pain 0/10; jd3
--- NOTE | 2021-04-25 11:41 | EDPHYS ---
Physician Documentation [facility] Name: Felipe Ross Age: 75 yrs Sex: Male : 1945 Arrival Date: 04/25/2021 Time: 10:56 Bed 3 Private MD: ED Physician Bereket Bocanegra HPI: 04/25 11:15 This 75 yrs old Male presents to ER via EMS with complaints of Bleeding from posterior kdr medial left ankle. 11:15 The patient presents with Bleeding from apparent varicose vein on medial posterior kdr aspect of left ankle. The complaints affect the left medial ankle. Context: The problem was sustained at home, resulted from Patient was in the shower when he bumped the area where there had been a small scab-like lesion, the patient can fully bear weight, the patient is able to ambulate. Onset: The symptoms/episode began/occurred suddenly, just prior to arrival. Modifying factors: The symptoms are alleviated by nothing. the symptoms are aggravated by nothing. Associated signs and symptoms: The patient has no apparent associated signs or symptoms. Treatment prior to arrival includes: saman wrap. Severity of symptoms: At their worst the symptoms were severe, in the emergency department the symptoms have improved, There was a large pressure dressing and saman wrap around the patient's ankle. This had occluded the vessel and stop the bleeding. I was able to take down the dressing completely without any recurrent bleeding. The patient has not experienced similar symptoms in the past. The patient has not recently seen a physician. Historical: - Allergies: 11:00 No Known Allergies; jd3 - Home Meds: 11:30 Zyrtec 10 mg Oral tab 1 tab once daily [Active]; benazepril 20 mg Oral tab 1 tab once jd3 daily [Active]; acetaminophen-codeine 300-30 mg Oral tab every 4 hours [Active]; Advair Diskus 250-50 mcg/dose Inhl dsdv 1 puff 2 times per day [Active]; benazepril-hydrochlorothiazide 20-12.5 mg Oral tab 1 tab once daily [Active]; calcium citrate 500 mg plus Vit D 500 IU Oral tab daily [Active]; Centrum Silver Oral [Active]; Claritin-D 12 Hour 5-120 mg Oral Tb12 [Active]; mesalamine DR 400 mg Oral 1 cap 2 times per day [Active]; omeprazole 20 mg Oral cpDR 1 cap once daily [Active]; ProAir HFA 90 mcg/actuation inhalation HFAA [Active]; Remicade 100 mg intravenous solr every 8 wks [Active]; risedronate 150 mg Oral tab 1 tab once moly [Active]; Vitamin C 500 mg Oral tab twice a day [Active]; - PMHx: 11:00 Atrial Fib; Chronic back/leg pain; Hypertension; Mitral Valve Regurgitation; herniated 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 - Social history:: Smoking status: Patient denies any tobacco usage or history of. ROS: 11:15 Constitutional: Negative for fever, chills, and weight loss, Eyes: Negative for injury, kdr pain, redness, and discharge, ENT: Negative for injury, pain, and discharge, Neck: Negative for injury, pain, and swelling, Cardiovascular: Negative for chest pain, palpitations, and edema, Respiratory: Negative for shortness of breath, cough, wheezing, and pleuritic chest pain, Abdomen/GI: Negative for abdominal pain, nausea, vomiting, diarrhea, and constipation, Back: Negative for injury and pain, : Negative for injury, bleeding, discharge, and swelling, MS/Extremity: Negative for injury and deformity, Neuro: Negative for headache, weakness, numbness, tingling, and seizure activity. Psych: Negative for depression, anxiety, suicide ideation, homicidal ideation, and hallucinations, Allergy/Immunology: Negative for hives, rash, and allergies, Endocrine: Negative for neck swelling, polydipsia, polyuria, polyphagia, and marked weight changes, Hematologic/Lymphatic: Negative for swollen nodes, abnormal bleeding, and unusual bruising. 11:15 Skin: Positive for ecchymosis, erythema, ulceration, Patient had a small scab-like lesion on the medial posterior aspect of the left medial malleolus. There is no drainage or bleeding at the time of initial evaluation. Exam: 11:15 Constitutional: This is a well developed, well nourished patient who is awake, alert, kdr and in no acute distress. 11:15 Skin: injury, There is a small area of scab-like lesion approximately 2 mm in diameter just posterior to the left medial malleolus. It is nonbleeding at this time. Vital Signs: 11:01 BP 140 / 64; Pulse 67; Resp 16 S; Temp 97.3(TE); Pulse Ox 99% on R/A; Weight 107.95 kg jd3 (R); Height 6 ft. 8 in. (203.20 cm) (R); Pain 0/10; 11:01 Body Mass Index 26.14 (107.95 kg, 203.20 cm) jd3 MDM: 11:15 Data reviewed: vital signs, nurses notes, lab test result(s), radiologic studies. kdr Counseling: I had a detailed discussion with the patient and/or guardian regarding: the historical points, exam findings, and any diagnostic results supporting the discharge/admit diagnosis, lab results, radiology results. 11:40 Patient medically screened. kdr 04/25 11:00 Order name: O2 Per Protocol; Complete Time: 11: kdr 04/25 11:00 Order name: O2 Sat Monitoring; Complete Time: 11: kdr 04/25 11:15 Order name: Misc. Order: Pressure dressing on wound on posterior medial aspect of left kdr ankle ; Complete Time: 11:29 Administered Medications: No medications were administered Disposition Summary: 04/25/21 11:40 Discharge Ordered Location: Home kdr Problem: new kdr Symptoms: are resolved kdr Condition: Stable kdr Diagnosis - Varicose vein rupture distal left extremity kdr Followup: kdr - With: Private Physician - When: 2 - 3 days - Reason: If symptoms return, Further diagnostic work-up, Recheck today's complaints, Continuance of care, Re-evaluation by your physician Discharge Instructions: - Discharge Summary Sheet kdr - Varicose Veins kdr - Bleeding Varicose Veins kdr Forms: - Medication Reconciliation Form kdr - Thank You Letter kdr Signatures: Dispatcher [employer] Bereket Davenport MD MD kdr Harjeet Florence RN RN jd3 Corrections: (The following items were deleted from the chart) 11:07 11:00 Cardiac monitoring ordered. kdr jd3 11: 11:00 EKG - Nurse/Tech ordered. kdr jd3 : 11:00 IV Saline Lock ordered. kdr jd3 11: 11:00 Labs collected and sent ordered. kdr jd3 : 11:01 Chest Single View+RAD.RAD.BRZ ordered. EDMS EDMS
[2021-04-25 12:08] VITALS: BP 140/64; TEMP 97.3; O2SAT 99
== END 2021-04-25 11:48 | disposition home or self-care (01) ==
LOC: ER 10:54
DX: I83.892 Varicose veins of left lower extremity with other complications (principal); I10 Essential (primary) hypertension; I48.91 Unspecified atrial fibrillation
CPT/HCPCS: 99283

== ENCOUNTER 2021-06-26 22:59 | Emergency (ER) | payer OTHER ==
--- OUTSIDE RECORDS SUMMARY | 2021-06-26 23:04 | XMS REPORT | Continuity of Care Document ---
:1945 Author Organization [facility] t Address [address] [place] [address] Care Team Providers Name Role Phone CAR REYES Attending Clinician Unavailable ARLEY ZARCO Attending Clinician Unavailable GRAYSON CANALES Attending Clinician Unavailable CAR REYES Admitting Clinician Unavailable ARLEY ZARCO Admitting Clinician Unavailable GRAYSON CANALES Admitting Clinician Unavailable Payers Payer Name Policy Type Policy Number Effective Date Expiration Date S galilea A[employer] MEDICARE HMO [id number] 2020 POS 00:00:00 Problems This patient has [...] Clinicians Facility Department ID 2021-03-11 Outpatient [facility] Surgery [id number] SLE 07:15:52 SCAR JACOBS 2021-03-11 Inpatient KATHRYN ZARCO Surgery [id number] SLE 06:10:56 KELSEA 2020-08-03 Inpatient UR KATHRYN CANALES Cardiovascu [id number] SLE 22:49:00 MARIANN stoner Results Test [...] NOT 1092) ACCURATE CRE ATININE CLEARANCE IN LA EDICTING GLOMERULAR FILT RATION RATE. ESTIMATED GFR IS NOT APPLICABLE FOR DIALYSIS PATIENTS. Head Shipper ID - ADMINCBC (HEMOGRAM ONLY)2020-08-09 05:33:00 Test [...] (BEAKER) (test code = 413) BASIC METABOLIC [id number] 05:53:00 Test Item Value Reference Range Interpretation [...] S NOT APPLICABLE FOR DIALYSIS PATIEN TS. Head Shipper ID - EDASICBC (HEMOGRAM ONLY)2020-08-08 05:24:00 Test [...] (BEAKER) (test code = 413) BASIC METABOLIC [id number] 06:26:00 Test Item Value Reference Range Interpretation [...] S NOT APPLICABLE FOR DIALYSIS PATIEN TS. Head Shipper ID - HERBIE MC (HEMOGRAM ONLY)2020-08-07 06:02:00 [...] (BEAKER) (test code = 413) MR, CARDIAC, [id number] 18:43:00With viability studyUnlisted Reason for Exam - Click Yes and Enter Reason Below->NoWith viabilitystudy [facility] : 1945 Sex: [...] left ventricular and valvular function. Technique: Stephanie My Ad Box 1.5 Hailey MRI scanner.* Turbo spin echo [...] Edouard Gatica MDReport Verified Date/Time: 08/06/2020 18:43:25 [id number] 10:32:00 Test Item Value Reference Range Interpretation Comments ACTIVATED CLOTTING TIME 246 sec : 74 -137 seconds, (BEAKER) (test code = Baseli ne: TESTED AT 441) [facility] [address] [place], [address]: Head Shipper/Techni theodore ID = [id number] for [place] NIRAJ EVERETT BASIC METABOLIC [id number] 07:09:00 Test Item Value Reference Range Interpretation [...] S NOT APPLICABLE FOR DIALYSIS PATIEN TS. Head Shipper ID - EDASICBC (HEMOGRAM ONLY)2020-08-06 06:31:00 Test [...] 0-0 (BEAKER) (test code = 413) CALCIUM, [id number] 05:46:00 Test Item Value Reference Range Interpretation Comments CALCIUM IONIZED (BEAKER) (test 1.05 mmol/L 1.12-1.27 L code = 698) PH, BLOOD (BEAKER) (test code = 7.48 1810) BASIC METABOLIC [id number] 05:44:00 Test Item Value Reference Range Interpretation [...] S NOT APPLICABLE FOR DIALYSIS PATIEN TS. Head Shipper ID - DBCBC W/PLT COUNT & AUTO [id number] 05:37:00 Test Item Value Reference Range Interpretation [...] (test code = 2801) RAD, CHEST, 2 [id number] 01:10:00Reason for exam:->sob [facility] 1945 Sex: [...] Jose Kim Verified Date/Time: 08/05/2020 01:10:48 POCT-GLUCOSE [id number] 17:57:00 Test Item Value Reference Range Interpretation Comments POC-GLUCOSE METER 149 mg/dL 70-110 H : TESTED A T [facility] [address] (TARA) (test code = [place] [employer] [facility], 1538) [address]: Head Shipper/Techni theodore ID = [id number] for ARUNA OWUSU HEMOGLOBIN AND [id number] 16:53:00 Test Item Value Reference Range Interpretation Comments HEMOGLOBIN (BEAKER) (test code = 14.2 GM/DL 13.7-17.5 410) HEMATOCRIT (BEAKER) (test code = 43.4 % 40.1-51.0 411) Head Shipper ID - 6000TROPOANNN [id number] 09:27:00 Test Item Value Reference Range Interpretation [...] failure, acidosis, acute neurological disease, and persistent tachyarrhythmia.Head Shipper ID - ADMINHEMOGLOBIN A1C 2020-08-04 08:42:00 Test Item Value Reference Range Interpretation Comments HEMOGLOBIN A1C (TARA) (test code = 6.5 % 4.3-6.1 H 368) SARS-COV2/RT-PCR ([facility])2020-08-04 08:28:00 Test Item Value Reference Range Interpretation Comments SARS-COV2/RT-PCR (test Negative Not Detected, Negative, code = 1441187) See external report for linked test SARS-COV-2 PERFORMING LAB [facility] (test code = 0009506) Negative result for this test determines that [...] 564(g) of the Act.Fact Sheet for Healthcare Providers:https://www.[employer]/sites/default/files/product/documents/Fact_Shee o_WQ_Nxusbycmk_Jjwj_YRAW-XgA-3.pdfFact Sheet for Healthcare Patients:https://www.[employer]/sites/default/files/product/ documents/Lyqu_Remnr_Zjdihrht_Uqkt_VCHY-SfB-0.pdfPerforming Laboratory:[place] [address], [place] [address]TMZVY METABOLIC PANEL 2020-08-04 05:54:00 Test Item Value [...] S NOT APPLICABLE FOR DIALYSIS PATIEN TS. Head Shipper ID - HERBIE MCBC W/PLT COUNT & AUTO [id number] 05:19:00 Test Item Value Reference Range Interpretation [...] code = 2801) URINALYSIS WITH MICROSCOPIC IF [id number] 03:14:00 Test Item Value Reference Range Interpretation [...] = 463) SOURCE(BEAKER) (test code = 2795) Head Shipper ID - [auto]Head Shipper ID - QCURINALYSIS [id number] 03:14:00 Test Item Value Reference Range Interpretation Comments RBC UA (BEAKER) (test code = 519) 20 /HPF WBC UA (BEAKER) (test code = 520) < /HPF SQUAMOUS EPITHELIAL (BEAKER) (test 2 /HPF code = 516) Head Shipper ID - QCCREATININE, RANDOM [id number] 02:25:00 Test Item Value Reference Range Interpretation Comments CREATININE URINE (BEAKER) (test 100.7 mg/dL code = 375) Reference Range: No NormalsOperator ID - HERBIE MSODIUM, RANDOM [id number] 02:25:00 Test Item Value Reference Range Interpretation Comments SODIUM URINE (BEAKER) (test code = 42 meq/L 243) Reference Range: No NormalsOperator ID - HERBIE MUREA NITROGEN, RANDOM URINE 2020-08-04 02:25:00 Test Item Value Reference Range Interpretation Comments UREA NITROGEN URINE (BEAKER) (test 1283 mg/dL code = 538) Reference Range: No NormalsOperator ID - HERBIE MBASIC METABOLIC [id number] 02:22:00 Test Item Value Reference Range Interpretation [...] S NOT APPLICABLE FOR DIALYSIS PATIEN TS. Head Shipper ID - HERBIE [id number] 02:12:00 Test Item Value Reference Range Interpretation Comments MAGNESIUM (BEAKER) (test code = 2.1 mg/dL 1.6-2.6 627) Head Shipper ID - HERBIE MLIPID [id number] 02:12:00 Test Item Value Reference Range Interpretation [...] Borderline 130-159 High 160-189 Very High >=190 Head Shipper ID - HERBIE MHEPATIC FUNCTION [id number] 02:12:00 Test Item Value Reference Range Interpretation [...] code = 75 U/L 6-55 H 347) Head Shipper ID - HERBIE MB-TYPE NATRIURETIC FACTOR (BNP)2020-08-04 02:12:00 Test Item Value Reference Range Interpretation Comments B-TYPE NATRIURETIC PEPTIDE 1067 pg/mL 0-100 H (BEAKER) (test code = 700) Head Shipper ID - HERBIE MPROTHROMBIN [id number] 01:50:00 Test Item Value Reference Range Interpretation Comments PROTIME (BEAKER) 14.6 seconds 11.9-14.2 H (test code = 759) INR (BEAKER) (test 1.17 See_Comment [Automat ed message] code = 370) The system [employer] generated this result transmitted ref erence range: [...] to initiating heparinCBC W/PLT COUNT & AUTO [id number] 01:29:00 Test Item Value Reference Range Interpretation [...]
[2021-06-26] MEDS ORDERED: TETANUS & DIPHTHERIA TOX,ADULT 0.5 ML VIAL ONE (23:55)
--- NOTE | 2021-06-27 00:23 | EDPHYS ---
Physician Documentation [facility] Name: Felipe Ross Age: 75 yrs Sex: Male : 1945 Arrival Date: 06/26/2021 Time: 23:04 Bed 27 Private MD: Waqas Pizarro HPI: 06/27 00:01 This 75 yrs old Male presents to ER via Ambulatory with complaints of Fall Injury, skin pm1 tear. 00:01 Details of fall: The patient fell from an upright position, while walking, and struck pm1 carpet and corner of kitchen counter. Onset: The symptoms/episode began/occurred today, and 4 days ago. Associated injuries: The patient sustained dorsal aspect of right forearm, skin tear. The patient has experienced similar episodes in the past, a few times, but smaller skin tears. The patient has not recently seen a physician. Patient tripped over his new puppy 4 days ago and today. 4 days ago his trip caused him to have a skin tear to his right forearm as a result of falling on the carpet. Today his trip caused him to hit his same forearm against the kitchen counter. No head injury, headache, neck pain, or LOC. Presenting to the ER today because of wound care questions and concerns. Historical: - Allergies: 06/26 23:36 No Known Allergies; tw5 - Home Meds: 23:36 acetaminophen-codeine 300-30 mg Oral tab every 4 hours [Active]; Advair Diskus 250-50 tw5 mcg/dose Inhl dsdv 1 puff 2 times per day [Active]; Zyrtec 10 mg Oral tab 1 tab once daily [Active]; Vitamin C 500 mg Oral tab twice a day [Active]; Eliquis 2.5 mg oral tab 1 tab 2 times per day [Active]; risedronate 150 mg Oral tab 1 tab once moly [Active]; Remicade 100 mg intravenous solr every 8 wks [Active]; ProAir HFA 90 mcg/actuation inhalation HFAA [Active]; omeprazole 20 mg Oral cpDR 1 cap once daily [Active]; mesalamine DR 400 mg Oral 1 cap 2 times per day [Active]; Claritin-D 12 Hour 5-120 mg Oral Tb12 [Active]; Centrum Silver Oral [Active]; calcium citrate 500 mg plus Vit D 500 IU Oral tab daily [Active]; benazepril-hydrochlorothiazide 20-12.5 mg Oral tab 1 tab once daily [Active]; benazepril 20 mg Oral tab 1 tab once daily [Active]; - PMHx: 23:36 Asthma; Atrial Fib; Chronic back/leg pain; herniated discs; Hypertension; Left atrium tw5 enlargement; Mitral Valve Regurgitation; - Immunization history: Last tetanus immunization: - up to date. " I was here a couple of months ago for a bleeding ankle, they asked me about it, but I don't' remember if I got the shot. . Last tetanus immunization:. - Social history:: Smoking status: Patient denies any tobacco usage or history of. ROS: 06/27 00:01 Constitutional: Negative for fever, chills, and weight loss, Cardiovascular: Negative pm1 for chest pain, palpitations, and edema, Respiratory: Negative for shortness of breath, cough, wheezing, and pleuritic chest pain, MS/Extremity: Negative for injury and deformity. Neuro: Negative for headache, weakness, numbness, tingling, and seizure. Skin: Positive for skin tear to right forearm, Negative for laceration(s), puncture. All other systems are negative. Exam: 00:01 Constitutional: This is a well developed, well nourished patient who is awake, alert, pm1 and in no acute distress. Head/Face: Normocephalic, atraumatic. 00:01 Eyes: Exam is negative for acute changes, Periorbital structures: appear normal, Extraocular movements: no acute changes. 00:01 ENT: Exam is negative for acute changes, Mouth: no acute changes, Lips: normal, moist, Oral mucosa: normal, pink and intact, moist. 00:01 Cardiovascular: Exam negative for acute changes, Pulses: no pulse deficits are appreciated. 00:01 Respiratory: Exam negative for acute changes, respiratory distress, shortness of breath. 00:01 Skin: Appearance: normal except for affected area, injury, 2 small skin tears present to dorsal aspect of right forearm. 00:01 Neuro: Exam negative for acute changes, Orientation: is normal, Mentation: is normal, Motor: is normal, moves all fours, Sensation: is normal, no obvious gross deficits. Vital Signs: 06/26 23:30 BP 150 / 74; Pulse 63; Resp 18; Temp 98.1(O); Pulse Ox 96% on R/A; Weight 106.59 kg; tw5 Height 6 ft. 8 in. (203.20 cm); Pain 0/10; 06/27 00:00 BP 155 / 73 LA Supine (auto/reg); Pulse 57 MON; Resp 18; Temp 98.2(O); Pulse Ox 93% on tk1 R/A; Pain 0/10; 06/26 23:30 Body Mass Index 25.82 (106.59 kg, 203.20 cm) tw5 [place] Coma Score: 06/26 23:31 Eye Response: spontaneous(4). Verbal Response: oriented(5). Motor Response: obeys tw5 commands(6). Total: 15. 06/27 00:00 Eye Response: spontaneous(4). Verbal Response: oriented(5). Motor Response: obeys tk1 commands(6). Total: 15. Trauma Score (Adult): 06/26 23:31 Eye Response: spontaneous(1); Verbal Response: oriented(1); Motor Response: obeys tw5 commands(2); Systolic BP: > 89 mm Hg(4); Respiratory Rate: 10 to 29 per min(4); [place] Score: 15; Trauma Score: 12 MDM: 23:52 Patient medically screened. [facility] 06/27 00:19 Data reviewed: vital signs. Counseling: I had a detailed discussion with the patient pm1 and/or guardian regarding: the historical points, exam findings, and any diagnostic results supporting the discharge/admit diagnosis, the need for outpatient follow up, to return to the emergency department if symptoms worsen or persist or if there are any questions or concerns that arise at home. 06/27 00:19 Order name: Wound Care; Complete Time: 00:23 pm1 Administered Medications: 00:23 Drug: Tetanus-Diphtheria Toxoid Adult 0.5 ml {Respiratory Physician: [employer]. Exp: tk1 10/21/2022. Lot #: [id number]. } Route: IM; Site: right deltoid; Disposition: 08:54 Co-signature as Attending Physician, Waqas Estrada MD I agree with the assessment and [facility] plan of care. Disposition Summary: 06/27/21 00:22 Discharge Ordered Location: Home pm1 Problem: new pm1 Symptoms: have improved pm1 Condition: Stable pm1 Diagnosis - Abrasion of right forearm pm1 Followup: pm1 - With: Emergency Department - When: As needed - Reason: Worsening of condition Followup: pm1 - With: Private Physician - When: 2 - 3 days - Reason: Recheck today's complaints, Continuance of care, Re-evaluation by your physician Discharge Instructions: - Discharge Summary Sheet pm1 - Skin Tear pm1 Forms: - Medication Reconciliation Form pm1 - Thank You Letter pm1 - Antibiotic Education pm1 - Prescription Opioid Use pm1 Signatures: Waqas Estrada MD MD cha Marinas, Patrick, NP CHILD DAY CARE TEACHER pm1 Darby Duran tw5 Lin Stanley tk1 Corrections: (The following items were deleted from the chart) 06/26 23:35 23:31 Immunization history Last tetanus immunization: - up to date.
--- NOTE | 2021-06-27 00:23 | ER ---
Nurse's Notes [facility] Name: Felipe Ross Age: 75 yrs Sex: Male : 1945 Arrival Date: 06/26/2021 Time: 23:04 Bed 27 Private MD: Diagnosis: Abrasion of right forearm Presentation: 06/26 23:31 Chief complaint: Patient states: "At about 10:15, we have a new puppy. He was around my tw5 feet and I lost my balance and I scrapped my arm against the kitchen counter and lost about an inch and a half of the skin. I also fell last and hurt the same arm so I thought it was time that I got myself check out.". Care prior to arrival: Bleeding of injury controlled. Injury dressed. Mechanism of Injury: Fall from standing position. Trauma event details: Injury occurred in the [facility], Injury occurred: at home. Injury occurred: June 26, 2021 Injury occurred at: 22:15. 23:31 Acuity: YSDNEE 3 tw5 23:31 Method Of Arrival: Ambulatory tw5 23:35 Coronavirus screen: Vaccine status: Patient reports receiving the 2nd dose of the covid tw5 vaccine. Moderna. Ebola Screen: Patient negative for fever greater than or equal to 101.5 degrees Fahrenheit, and additional compatible Ebola Virus Disease symptoms Patient denies exposure to infectious person. Patient denies travel to an Ebola-affected area in the 21 days before illness onset. Initial Sepsis Screen: Does the patient meet any 2 criteria? No. Patient's initial sepsis screen is negative. Does the patient have a suspected source of infection? No. Patient's initial sepsis screen is negative. Risk Assessment: Do you want to hurt yourself or someone else? Patient reports no desire to harm self or others. Onset of symptoms was June 26, 2021 at 22:15. Historical: - Allergies: 23:36 No Known Allergies; tw5 - Home Meds: 23:36 acetaminophen-codeine 300-30 mg Oral tab every 4 hours [Active]; Advair Diskus 250-50 tw5 mcg/dose Inhl dsdv 1 puff 2 times per day [Active]; Zyrtec 10 mg Oral tab 1 tab once daily [Active]; Vitamin C 500 mg Oral tab twice a day [Active]; Eliquis 2.5 mg oral tab 1 tab 2 times per day [Active]; risedronate 150 mg Oral tab 1 tab once moly [Active]; Remicade 100 mg intravenous solr every 8 wks [Active]; ProAir HFA 90 mcg/actuation inhalation HFAA [Active]; omeprazole 20 mg Oral cpDR 1 cap once daily [Active]; mesalamine DR 400 mg Oral 1 cap 2 times per day [Active]; Claritin-D 12 Hour 5-120 mg Oral Tb12 [Active]; Centrum Silver Oral [Active]; calcium citrate 500 mg plus Vit D 500 IU Oral tab daily [Active]; benazepril-hydrochlorothiazide 20-12.5 mg Oral tab 1 tab once daily [Active]; benazepril 20 mg Oral tab 1 tab once daily [Active]; - PMHx: 23:36 Asthma; Atrial Fib; Chronic back/leg pain; herniated discs; Hypertension; Left atrium tw5 enlargement; Mitral Valve Regurgitation; - Immunization history: Last tetanus immunization: - up to date. " I was here a couple of months ago for a bleeding ankle, they asked me about it, but I don't' remember if I got the shot. . Last tetanus immunization:. - Social history:: Smoking status: Patient denies any tobacco usage or history of. Screenin:31 Abuse screen: Denies threats or abuse. Denies injuries from another. Tuberculosis tw5 screening: No symptoms or risk factors identified. 06/27 00:22 Nutritional screening: No deficits noted. Fall Risk Fall in past 12 months (25 points). tk1 Secondary diagnosis (15 points) impaired mobility, No IV (0 pts). Ambulatory Aid- None/Bed Rest/Nurse Assist (0 pts). Gait- Normal/Bed Rest/Wheelchair (0 pts) Mental Status- Oriented to own ability (0 pts). Total Marsh Fall Scale indicates Low Risk Score (25-44 pts). Fall prevention measures have been instituted. Side Rails Up X 2 Placed close to Nursing Station Frequent Obs/Assesments occuring Family Present and informed to notify staff if they need to leave bedside As available Patient and Family Educated on Fall Prevention Program and strategies. Primary Survey: 06/26 23:31 NO uncontrolled hemorrhage observed. A: The patient is alert. Airway: patent. tw5 Breathing/Chest: Respiratory pattern: regular. Circulation: Cardiac rhythm:. Disability Alert. Exposure/Environment: There is no evidence of uncontrolled external bleeding. Reassessment Airway Airway Patent Breathing/Chest Respiratory pattern Regular Circulation Heart rhythm Sinus rhythm Disability Alert. Assessment: 23:31 General: Appears in no apparent distress. Behavior is calm, cooperative, appropriate tw5 for age. Pain: Denies pain. 06/27 00:00 Reassessment: Cleansed skin tears to right forearm with chlorhexadine and saline. tk1 Triple antibiotics applied and dressed with 4x4's. Secured with Coban. Patient tolerated well. Instructions on wound care explained to patient and . General: Appears in no apparent distress. well groomed, well developed, well nourished, Behavior is calm, cooperative, appropriate for age. Pain: Denies pain. Neuro: No deficits noted. Cardiovascular: No deficits noted. Respiratory: No deficits noted. GI: No deficits noted. : No deficits noted. : No deficits noted. EENT: No deficits noted. Derm: Skin is dry, Skin is normal, Wound noted right antecubital area and dorsal aspect of right forearm Wound is Skin tears x2. Bleeding noted. Pressure held. Injury Description: Skin tear. 00:41 Reassessment: D/C per MD order. Discharge and wound care instructions given to patient tk1 and . Verbalized understanding. Vital Signs: 06/26 23:30 BP 150 / 74; Pulse 63; Resp 18; Temp 98.1(O); Pulse Ox 96% on R/A; Weight 106.59 kg; tw5 Height 6 ft. 8 in. (203.20 cm); Pain 0/10; 06/27 00:00 BP 155 / 73 LA Supine (auto/reg); Pulse 57 MON; Resp 18; Temp 98.2(O); Pulse Ox 93% on tk1 R/A; Pain 0/10; 06/26 23:30 Body Mass Index 25.82 (106.59 kg, 203.20 cm) tw5 [place] Coma Score: 06/26 23:31 Eye Response: spontaneous(4). Verbal Response: oriented(5). Motor Response: obeys tw5 commands(6). Total: 15. 06/27 00:00 Eye Response: spontaneous(4). Verbal Response: oriented(5). Motor Response: obeys tk1 commands(6). Total: 15. Trauma Score (Adult): 06/26 23:31 Eye Response: spontaneous(1); Verbal Response: oriented(1); Motor Response: obeys tw5 commands(2); Systolic BP: > 89 mm Hg(4); Respiratory Rate: 10 to 29 per min(4); [place] Score: 15; Trauma Score: 12 ED Course: 23:04 Patient arrived in ED. kc5 23:31 Patient has correct armband on for positive identification. tw5 23:34 Triage completed. tw5 23:36 Arm band placed on left wrist. tw5 23:45 Bobby Valle NP is PHCP. pm1 23:45 Waqas Estrada MD is Attending Physician. pm1 06/27 00:15 Lin Stanley is Primary Nurse. tk1 00:15 No provider procedures requiring assistance completed. Dressings: non-adherent dressing tk1 x 2 right antecubital area and dorsal aspect of right forearm 4X4s X 4; right antecubital area and dorsal aspect of right forearm. 00:22 Bed in low position. Call light in reach. Side rails up X2. Adult w/ patient. tk1 Administered Medications: 00:23 Drug: Tetanus-Diphtheria Toxoid Adult 0.5 ml {Community Development Technician: [employer]. Exp: tk1 10/21/2022. Lot #: [id number]. } Route: IM; Site: right deltoid; Intake: 06/26 23:31 PO: 0ml; Total: 0ml. tw5 Output: 23:31 Urine: 0ml; Total: 0ml. tw5 Outcome: 06/27 00:22 Discharge ordered by . pm1 00:43 Discharged to home ambulatory, with family. tk1 00:43 Condition: stable 00:43 Discharge instructions given to patient, family, Instructed on discharge instructions, wound care, Demonstrated understanding of instructions, follow-up care, Prescriptions given X 00:45 Patient left the ED. tk1 Signatures: Bobby Valle NP ASSISTANT BOYS TRACK COACH pm1 Darby Duran tw5 Kizzy Hyde kc5 Lin Stanley tk1 Corrections: (The following items were deleted from the chart) 06/26 23:35 23:31 Immunization history Last tetanus immunization: - up to date. tw5 tw5
[2021-06-27 04:33] VITALS: BP 155/73; TEMP 98.2; O2SAT 93
== END 2021-06-27 00:45 | disposition home or self-care (01) ==
LOC: ER 22:59
DX: S50.811A Abrasion of right forearm, initial encounter (principal); W18.30XA Fall on same level, unspecified, initial encounter; Y93.01 Activity, walking, marching and hiking; Z23 Encounter for immunization; I10 Essential (primary) hypertension; I48.91 Unspecified atrial fibrillation
CPT/HCPCS: 90714

== ENCOUNTER 2021-11-26 11:37 | Emergency (ER) | payer OTHER ==
--- OUTSIDE RECORDS SUMMARY | 2021-11-26 11:41 | XMS REPORT | Continuity of Care Document ---
:1945 Author Organization [facility] [place] [facility] t Address [address] [place] [address] Care Team Providers Name Role Phone Guido Marcus Primary Care Physician CAR REYES Attending Clinician Unavailable ARLEY ZARCO Attending Clinician Unavailable GRAYSON CANALES Attending Clinician Unavailable RADIOLOGY Attending Clinician Unavailable Radiology Attending Clinician Unavailable Doctor Unassigned, Name Attending Clinician Unavailable CAR REYES Admitting Clinician Unavailable ARLEY ZARCO Admitting Clinician Unavailable GRAYSON CANALES Admitting Clinician Unavailable Payers Payer Name Policy Type Policy Number Effective Date Expiration Date S galilea [employer]ET[employer] MEDICARE HMO [id number] 2020 POS 00:00:00 [employer]ET[employer] MANAGED [id number] 2021 MEDICARE PPO-RIO 00:00:00 Problems Condition Condition Condition Status Onset Resolution Last Treating Co mments Source Name Details Category Date Date Treatment Clinician Date Cataract, Cataract, Disease Active 2017-06 Uni vers nuclear nuclear 07 [place] 00 Medical right right Branch Allergies, Adverse Reactions, Alerts Allergy Allergy Status Severity Reaction(s) Onset Inactive Treating Comm ents Source Name Type Date Date Clinician IODINE Allergy Active High Hives [facility]: Medical CONTAINI 00 Center NG PRODUCTS IODINE DRUG Active Anaphylaxis 2017-06 Unive rs INGREDI 0-18 ity of 00:00: [place] 00 Medical Branch Iodine Propensi Active Anaphylaxis 2017-06 IV iodine Univers ty to 0-18 only ity of adverse 00:00: [place] reaction 00 Medical s Branch Social History Social Habit Start Date Stop Date Quantity Comments Source Tobacco use and 2018-03-20 2018-03-20 Never used [facility] exposure 00:00:00 00:00:00 Medical Branch Sex [birth year] [facility] 00:00:00 00:00:00 Medical Branch Smoking Status Start Date Stop Date Source Never smoker [facility] Medical Branch Medications Ordered Filled Start Stop Current Ordering Indication Dosage Frequency Signature Comments Components Source Medication Medication Date Date Medication? Clinician (SIG) Name Name fluticasone Yes 1{puff} Inhale 1 Univers -salmeterol 4-03 Puff every it y of (ADVAIR 11:46: 12 [place] DISKUS) 14 (twelve) Medical 250-50 hours. Branch mcg/dose inhalation disk azaTHIOprin Yes 50mg Take 50 mg Univers e 50 mg 4-03 by mouth ity of tablet 11:46: daily. [place] [address] Medical Branch benazepril- Yes 1{tbl} Take 1 Un idalia hydrochlort 4-03 tablet by ity of hiazide 11:46: mouth [place] 20-12.5 mg 14 daily. Medical per tablet Branch benazepril Yes 20mg Take 20 mg U nivers 20 mg 4-03 by mouth ity of tablet 11:46: daily. [address] Branch CALCIUM Yes Take by Univer s CITRATE-VIT 4-03 mouth. ity of [place] D3 11:46: [place] ORAL Medical Branch folic Yes Take by Univers acid/multiv 4-03 mouth. ity of it-min/lute 11:46: [place] in (CENTRUM 14 Medical SILVER Branch ORAL) mesalamine Yes Take by Uni vers (DELZICOL 4-03 mouth. ity of ORAL) 11:46: [address] Branch ascorbic 2018- Yes 500mg Take 500 Univ ers acid, 4-03 mg by ity of vitamin C, 11:46: mouth. [place] (VITAMIN C) Medical 500 mg Branch tablet risedronate Yes 150mg Take 150 U nivers (ACTONEL) 4-03 mg by ity of 150 mg 11:46: mouth once [place] tablet 14 every Medical month. Branch loratadine- Yes 1{tbl} Take 1 Un idalia pseudoephed 4-03 tablet by ity of rine 11:46: mouth 2 [place] (ALAVERT 14 (two) Medical ALLERGY-SIN times Branch US) 5-120 daily. mg per tablet fluocinonid Yes Apply to U nivers e 0.05 % 4-03 area(s) 2 ity of ointment 11:46: (two) [place] 14 times Medical daily. Branch albuterol 0 Yes Inhale. Unive rs sulfate 4-03 ity of (PROAIR HFA 11:46: [place] INHALE) 14 Medical Branch infliximab 0 Yes Inject Unive rs (REMICADE 4-03 intravenou ity of IV) 11:46: sly. [address] Branch acetaminoph Yes 1{tbl} Take 1 Un idalia en-codeine 4-03 tablet by ity of (TYLENOL-CO 11:46: mouth [place] DEINE #3) 14 every 4 Medical 300-30 mg (four) Branch tablet hours as needed for Pain (scale 4-6). fluticasone Yes 1{puff} Inhale 1 Univers -salmeterol 4-03 Puff every it y of (ADVAIR 11:46: 12 [place] DISKUS) 14 (twelve) Medical 250-50 hours. Branch mcg/dose inhalation disk azaTHIOprin Yes 50mg Take 50 mg Univers e 50 mg -03 by mouth ity of tablet 11:46: daily. [address] Branch benazepril- Yes 1{tbl} Take 1 Un idalia hydrochlort 4-03 tablet by ity of hiazide 11:46: mouth [place] 20-12.5 mg 14 daily. Medical per tablet Branch benazepril Yes 20mg Take 20 mg U nivers 20 mg 4-03 by mouth ity of tablet 11:46: daily. [address] Branch CALCIUM Yes Take by Univer s CITRATE-VIT 4-03 mouth. ity of [place] D3 11:46: [place] ORAL [address] [place] [address] Branch folic 0 Yes Take by Univers acid/multiv 4-03 mouth. ity of it-min/lute 11:46: [place] in (CENTRUM 14 Medical SILVER Branch ORAL) mesalamine Yes Take by Uni vers (DELZICOL 4-03 mouth. ity of ORAL) 11:46: [place] 14 Medical Branch ascorbic 2018-0 Yes 500mg Take 500 Univ ers acid, 4-03 mg by ity of vitamin C, 11:46: mouth. [place] (VITAMIN C) 14 Medical 500 mg Branch tablet risedronate Yes 150mg Take 150 U nivers (ACTONEL) 4-03 mg by ity of 150 mg 11:46: mouth once [place] tablet 14 every Medical month. Branch loratadine- Yes 1{tbl} Take 1 Un [place] pseudoephed 4-03 tablet by ity of rine 11:46: mouth 2 [place] (ALAVERT 14 (two) Medical ALLERGY-SIN times [place]) 5-120 daily. mg per tablet fluocinonid Yes Apply to U nivers e 0.05 % 4-03 area(s) 2 ity of ointment 11:46: (two) [place] 14 times Medical daily. Branch albuterol 0 Yes Inhale. Unive rs sulfate 4-03 ity of (PROAIR HFA 11:46: [place] INHALE) 14 Medical Branch infliximab 0 Yes Inject Unive rs (REMICADE 4-03 intravenou ity of IV) 11:46: sly. [place] 14 Medical Branch acetaminoph 0 Yes 1{tbl} Take 1 Un idalia en-codeine 4-03 tablet by ity of (TYLENOL-CO 11:46: mouth [place] DEINE #3) 14 every 4 Medical 300-30 mg (four) Branch tablet hours as needed for Pain (scale 4-6). Vital Signs Vital Name Observation Time Observation Value Comments Source WEIGHT 2020-08-04 05:00:00 118.752 kg HEIGHT 2020-08-03 23:00:00 203.2 cm WEIGHT 2020-08-04 05:00:00 118.752 kg HEIGHT 2020-08-03 23:00:00 203.2 cm Procedures Procedure Date / Time Performed Performing Clinician Derrick linn XR SHOULDER 2+ VW 2021-11-23 19:38:11 Benedict Cameron [facility] BILATERAL [facility] ASSIGNMENT OF BENEFITS 2021-11-23 19:02:51 Doctor Unassigned, No [facility] Name Medical Branch Encounters Start End Encounter Admission Attending Care Care Encounter Source Date/Time Date/Time Type Type Clinicians Facility Department ID 2021-03-11 Outpatient FER [facility] Surgery [id number] [facility] 07:15:52 SCAR JACOBS 2021-03-11 Inpatient CAROLEE, [facility] Surgery [id number] [facility] 06:10:56 KELSEA 2020-08-03 Inpatient KRYSTAL CANALES [facility] Cardiovascu [id number] [facility] 22:49:00 MARIANN l 2021-11-23 2021-11-23 Outpatient R RADIOLOGY [facility] [id number] Univers 14:07:27 23:59:00 ity of [facility] 2021-11-23 2021-11-23 Hospital Radiology [facility] [id number] Univers 14:07:27 23:59:00 Encounter [place] [id number] ity [facility] [id number] [facility] [id number] [facility] 807 Branch 2021-11-23 2021-11-23 Outpatient R [facility] [id number] Univers 00:00:00 00:00:00 [id number] ity of [facility] 2021-11-23 2021-11-23 Orders Doctor TREVOR [id number] Univers 00:00:00 00:00:00 Only Unassigned, [place] [id number] ity of [place] [facility] [id number] [place] [id number] [facility] 009 Branch Results Test Description Test Time Test Comments [...] NOT 1092) ACCURATE CRE ATININE CLEARANCE IN VA EDICTING GLOMERULAR FILT RATION RATE. ESTIMATED GFR IS NOT APPLICABLE FOR DIALYSIS PATIENTS. Filament Shaper ID - ADMINCBC (HEMOGRAM ONLY)2020-08-09 05:33:00 Test [...] (BEAKER) (test code = 413) BASIC METABOLIC [id number] 05:53:00 Test Item Value Reference Range Interpretation [...] S NOT APPLICABLE FOR DIALYSIS PATIEN TS. Filament Shaper ID - EDASICBC (HEMOGRAM ONLY)2020-08-08 05:24:00 Test [...] (BEAKER) (test code = 413) BASIC METABOLIC [id number] 06:26:00 Test Item Value Reference Range Interpretation [...] S NOT APPLICABLE FOR DIALYSIS PATIEN TS. Filament Shaper ID - HERBIE [facility] (HEMOGRAM ONLY)2020-08-07 06:02:00 Test Item Value Reference [...] (BEAKER) (test code = 413) MR, CARDIAC, [id number] 18:43:00With viability studyUnlisted Reason for Exam - Click Yes and Enter Reason Below->NoWith viabilitystudy [facility] : 1945 Sex: MFINAL REPORT [...] Edouard Gatica MDReport Verified Date/Time: 08/06/2020 18:43:25 [id number] 10:32:00 Test Item Value Reference Range Interpretation Comments ACTIVATED CLOTTING TIME 246 sec : 74 -137 seconds, (BEAKER) (test code = Baseli ne: TESTED AT 441) [facility] [address] [facility] [place], [address]: Filament Shaper/Techni theodore ID = [id number] for NIRAJ LENZ BASIC METABOLIC [id number] 07:09:00 Test Item Value Reference Range Interpretation [...] S NOT APPLICABLE FOR DIALYSIS PATIEN TS. Filament Shaper ID - EDASICBC (HEMOGRAM ONLY)2020-08-06 06:31:00 Test [...] 0-0 (BEAKER) (test code = 413) CALCIUM, [id number] 05:46:00 Test Item Value Reference Range Interpretation Comments CALCIUM IONIZED (BEAKER) (test 1.05 mmol/L 1.12-1.27 L code = 698) PH, BLOOD (BEAKER) (test code = 7.48 1810) BASIC METABOLIC [id number] 05:44:00 Test Item Value Reference Range Interpretation [...] S NOT APPLICABLE FOR DIALYSIS PATIEN TS. Filament Shaper ID - DBCBC W/PLT COUNT & AUTO [id number] 05:37:00 Test Item Value Reference Range Interpretation [...] (test code = 2801) RAD, CHEST, 2 [id number] 01:10:00Reason for exam:->sob [facility] : 1945 Sex: MFINAL REPORT CLINICAL HISTORY: Shortness of breath The upright images of the chest are submitted. COMPARISON:None. The cardiac silhouette is within normal limits for size. There is atherosclerotic calcification of the tortuous aorta. There are small bilateral pleural effusions. There is no focal consolidation, pneumothorax, evidence of overt pulmonary edema or acutebony abnormality. Signed: Jose [place] Verified Date/Time: 08/05/2020 01:10:48 POCT-GLUCOSE [id number] 17:57:00 Test Item Value Reference Range Interpretation Comments POC-GLUCOSE METER 149 mg/dL 70-110 H : TESTED A T [facility] 6720 (BEAKER) (test code = [place], 1538) [address]: Filament Shaper/Techni theodore ID = [id number] for ARUNA OWUSU HEMOGLOBIN AND [id number] 16:53:00 Test Item Value Reference Range Interpretation Comments HEMOGLOBIN (BEAKER) (test code = 14.2 GM/DL 13.7-17.5 410) HEMATOCRIT (BEAKER) (test code = 43.4 % 40.1-51.0 411) Filament Shaper ID - [id number] 09:27:00 Test Item Value Reference Range Interpretation [...] failure, acidosis, acute neurological disease, and persistent tachyarrhythmia.Filament Shaper ID - ADMINHEMOGLOBIN A1C 2020-08-04 08:42:00 Test Item Value Reference Range Interpretation Comments HEMOGLOBIN A1C (BEAKER) (test code = 6.5 % 4.3-6.1 H 368) SARS-COV2/RT-PCR ([facility])2020-08-04 08:28:00 Test Item Value Reference Range Interpretation Comments SARS-COV2/RT-PCR (test Negative Not Detected, Negative, code = 5495570) See external report for linked test SARS-COV-2 PERFORMING LAB [facility] IMTIAZ (test code = 2312042) Negative result for this test determines that [...] 564(g) of the Act.Fact Sheet for Healthcare Providers:https://www.[employer]idel.com/sites/default/files/product/documents/Fact_Shee y_ZV_Gzcbnqvut_Mjmq_KQLX-BlZ-2.pdfFact Sheet for Healthcare Patients:https://www.[employer].com/sites/default/files/product/ documents/Swqv_Enljd_Lnvzgcbv_Hjpz_ODUI-PmA-7.pdfPerforming Laboratory:[address], [place] [address]WPPHQ METABOLIC PANEL 2020-08-04 05:54:00 Test Item Value [...] S NOT APPLICABLE FOR DIALYSIS PATIEN TS. Filament Shaper ID - HERBIE MCBC W/PLT COUNT & AUTO [id number] 05:19:00 Test Item Value Reference Range Interpretation [...] code = 2801) URINALYSIS WITH MICROSCOPIC IF [id number] 03:14:00 Test Item Value Reference Range Interpretation [...] = 463) SOURCE(BEAKER) (test code = 2795) Filament Shaper ID - [auto]Filament Shaper ID - QCURINALYSIS [id number] 03:14:00 Test Item Value Reference Range Interpretation Comments RBC UA (BEAKER) (test code = 519) 20 /HPF WBC UA (BEAKER) (test code = 520) < /HPF SQUAMOUS EPITHELIAL (BEAKER) (test 2 /HPF code = 516) Filament Shaper ID - QCCREATININE, RANDOM [id number] 02:25:00 Test Item Value Reference Range Interpretation Comments CREATININE URINE (BEAKER) (test 100.7 mg/dL code = 375) Reference Range: No NormalsOperator ID - HERBIE MSODIUM, RANDOM [id number] 02:25:00 Test Item Value Reference Range Interpretation Comments SODIUM URINE (BEAKER) (test code = 42 meq/L 243) Reference Range: No NormalsOperator ID - HERBIE MUREA NITROGEN, RANDOM URINE 2020-08-04 02:25:00 Test Item Value Reference Range Interpretation Comments UREA NITROGEN URINE (BEAKER) (test 1283 mg/dL code = 538) Reference Range: No NormalsOperator ID - HERBIE MBASIC METABOLIC [id number] 02:22:00 Test Item Value Reference Range Interpretation [...] S NOT APPLICABLE FOR DIALYSIS PATIEN TS. Filament Shaper ID - HERBIE [id number] 02:12:00 Test Item Value Reference Range Interpretation Comments MAGNESIUM (BEAKER) (test code = 2.1 mg/dL 1.6-2.6 627) Filament Shaper ID - HERBIE MLIPID [id number] 02:12:00 Test Item Value Reference Range Interpretation [...] Borderline 130-159 High 160-189 Very High >=190 Filament Shaper ID - HERBIE MHEPATIC FUNCTION [id number] 02:12:00 Test Item Value Reference Range Interpretation [...] code = 75 U/L 6-55 H 347) Filament Shaper ID - HERBIE MB-TYPE NATRIURETIC FACTOR (BNP)2020-08-04 02:12:00 Test Item Value Reference Range Interpretation Comments B-TYPE NATRIURETIC PEPTIDE 1067 pg/mL 0-100 H (BEAKER) (test code = 700) Filament Shaper ID - HERBIE MPROTHROMBIN [id number] 01:50:00 Test Item Value Reference Range Interpretation Comments PROTIME (BEAKER) 14.6 seconds 11.9-14.2 H (test code = 759) INR (BEAKER) (test 1.17 See_Comment [Automat ed message] code = 370) The system [employer] generated this result transmitted ref erence range: [...] to initiating heparinCBC W/PLT COUNT & AUTO [id number] 01:29:00 Test Item Value Reference Range Interpretation [...] % 0-1 PERCENT (BEAKER) (test code = 8803)
[2021-11-26] MEDS ORDERED: DERMABOND SKIN ADHESIVE TOP ONE (13:28)
--- NOTE | 2021-11-26 14:18 | EDPHYS ---
Physician Documentation [facility] Name: Felipe Ross Age: 76 yrs Sex: Male : 1945 Arrival Date: 11/26/2021 Time: 11:38 Bed 2 Private MD: ED Physician Lisa Lim HPI: 11/26 14:16 This 76 yrs old Male presents to ER via Wheelchair with complaints of Varicose vein on pm1 left ankle. 14:16 The complaints affect the left ankle. Onset: The symptoms/episode began/occurred this pm1 morning. Context: The problem was sustained at home, resulted from Possible scratching while taking a shower, The patient can fully bear weight on the affected extremity. Associated signs and symptoms: The patient has no apparent associated signs or symptoms. Modifying factors: The symptoms are alleviated by Pressure to bleeding. However removal of bandage results and continued bleeding. Severity of symptoms: in the emergency department the symptoms are unchanged. The patient has experienced a previous episode, and the symptoms today are exactly the same, A few months ago and relieve the pressure. The patient has not recently seen a physician. Historical: - Allergies: 12:19 No Known Allergies; as6 - PMHx: 12:19 Asthma; Atrial Fib; Chronic back/leg pain; herniated discs; Hypertension; Left atrium as6 enlargement; Mitral Valve Regurgitation; - Immunization history:: Client reports receiving the 2nd dose of the Covid vaccine. - Social history:: Smoking status: Patient denies any tobacco usage or history of. ROS: 14:16 Constitutional: Negative for fever, chills, and weight loss, Cardiovascular: Negative pm1 for chest pain, palpitations, and edema, Respiratory: Negative for shortness of breath, cough, wheezing, and pleuritic chest pain, MS/Extremity: Negative for injury and deformity, Skin: Negative for injury, rash, and discoloration, Neuro: Negative for headache, weakness, numbness, tingling, and seizure. 14:16 All other systems are negative. Exam: 14:16 Constitutional: This is a well developed, well nourished patient who is awake, alert, pm1 and in no acute distress. Head/Face: Normocephalic, atraumatic. 14:16 Cardiovascular: Exam negative for acute changes, Rate: normal, Rhythm: regular, Pulses: no pulse deficits are appreciated. 14:16 Respiratory: Exam negative for acute changes, respiratory distress, shortness of breath. 14:16 Skin: Appearance: normal except for affected area, injury, Small wound with bleeding present to left ankle area from varicosity. Vital Signs: 12:17 BP 148 / 73; Pulse 60; Resp 16; Temp 97.9(TE); Pulse Ox 98% on R/A; Weight 113.4 kg; as6 Height 6 ft. 8 in. (203.20 cm); Pain 8/10; 13:01 Pulse 44; Pulse Ox 99% on R/A; ld1 13:28 BP 159 / 71; Pulse 55; Resp 18; Pulse Ox 100% on R/A; ld1 12:17 Body Mass Index 27.46 (113.40 kg, 203.20 cm) as6 Procedures: 13:46 Performed Bleeding from varicose vein on medial aspect of left ankle stopped with pm1 dermabond. Area cleansed with hibiclens and saline prior to application of dermabond. MDM: 12:33 Patient medically screened. pm1 14:16 Data reviewed: vital signs. Data interpreted: Pulse oximetry: on room air is 100 %. pm1 Interpretation: normal. Counseling: I had a detailed discussion with the patient and/or guardian regarding: the historical points, exam findings, and any diagnostic results supporting the discharge/admit diagnosis, the need for outpatient follow up, for definitive care, a plastic surgeon, to return to the emergency department if symptoms worsen or persist or if there are any questions or concerns that arise at home. 11/26 13:17 Order name: Dermabond; Complete Time: 13:26 pm1 Administered Medications: No medications were administered Disposition: 18:04 Co-signature as Attending Physician, Lisa Lim MD. ma2 Disposition Summary: 11/26/21 14:17 Discharge Ordered Location: Home pm1 Problem: new pm1 Symptoms: have improved pm1 Condition: Stable pm1 Diagnosis - Rupture of varicose vein of left lower extermity pm1 Followup: pm1 - With: Emergency Department - When: As needed - Reason: Worsening of condition Followup: pm1 - With: Private Physician - When: 2 - 3 days - Reason: Recheck today's complaints, Continuance of care, Re-evaluation by your physician Discharge Instructions: - Discharge Summary Sheet pm1 - Bleeding Varicose Veins pm1 Forms: - Medication Reconciliation Form pm1 - Thank You Letter pm1 - Antibiotic Education pm1 - Prescription Opioid Use pm1 Signatures: Bobby Valle NP [employer] pm1 Lisa Lim MD MD ma2 Baltazar Badillo RN RN as6 Corrections: (The following items were deleted from the chart) 14:19 14:17 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
--- NOTE | 2021-11-26 14:18 | ER ---
Nurse's Notes [facility] Name: Felipe Ross Age: 76 yrs Sex: Male : 1945 Arrival Date: 11/26/2021 Time: 11:38 Bed 2 Private MD: Diagnosis: Rupture of varicose vein of left lower extermity Presentation: 11/26 12:17 Chief complaint: Patient states: has been seen in the ED for the same incident, states as6 Left ankle pain with bleeding, states blood vessel ruptured and had to place gauze and wrap it. Took Tylenol #3 at about 11 for pain. Coronavirus screen: Vaccine status: Patient reports receiving the 2nd dose of the covid vaccine. Client denies travel out of the [place] in the last 14 days. Ebola Screen: Patient denies exposure to infectious person. Patient denies travel to an Ebola-affected area in the 21 days before illness onset. Initial Sepsis Screen: Does the patient meet any 2 criteria? No. Patient's initial sepsis screen is negative. Does the patient have a suspected source of infection? No. Patient's initial sepsis screen is negative. Risk Assessment: Do you want to hurt yourself or someone else? Patient reports no desire to harm self or others. Onset of symptoms was November 26, 2021. 12:17 Method Of Arrival: Wheelchair as6 12:17 Acuity: SYDNEE 3 as6 Triage Assessment: 12:19 General: Appears in no apparent distress. uncomfortable, Behavior is calm, cooperative. as6 Pain: Complains of pain in left medial malleolus Pain currently is 8 out of 10 on a pain scale. Derm:. Historical: - Allergies: 12:19 No Known Allergies; as6 - PMHx: 12:19 Asthma; Atrial Fib; Chronic back/leg pain; herniated discs; Hypertension; Left atrium as6 enlargement; Mitral Valve Regurgitation; - Immunization history:: Client reports receiving the 2nd dose of the Covid vaccine. - Social history:: Smoking status: Patient denies any tobacco usage or history of. Screenin:01 Abuse screen: Denies threats or abuse. Denies injuries from another. Nutritional ld1 screening: No deficits noted. Tuberculosis screening: No symptoms or risk factors identified. Fall Risk None identified. Assessment: 13:01 General: Appears in no apparent distress. comfortable, Behavior is calm, cooperative, ld1 appropriate for age. Pain: Denies pain. Neuro: Level of Consciousness is awake, alert, obeys commands, Oriented to person, place, time, situation. Cardiovascular: Capillary refill < 3 seconds Patient's skin is warm and dry. Respiratory: Airway is patent Respiratory effort is even, unlabored, Respiratory pattern is regular, symmetrical. GI: Abdomen is round non-distended. : No signs and/or symptoms were reported regarding the genitourinary system. EENT: No signs and/or symptoms were reported regarding the EENT system. Derm: No signs and/or symptoms reported regarding the dermatologic system. 14:38 Reassessment: Patient appears in no apparent distress at this time. Patient and/or ld1 family updated on plan of care and expected duration. Pain level reassessed. Patient is alert, oriented x 3, equal unlabored respirations, skin warm/dry/pink. Vital Signs: 12:17 BP 148 / 73; Pulse 60; Resp 16; Temp 97.9(TE); Pulse Ox 98% on R/A; Weight 113.4 kg; as6 Height 6 ft. 8 in. (203.20 cm); Pain 8/10; 13:01 Pulse 44; Pulse Ox 99% on R/A; ld1 13:28 BP 159 / 71; Pulse 55; Resp 18; Pulse Ox 100% on R/A; ld1 12:17 Body Mass Index 27.46 (113.40 kg, 203.20 cm) as6 ED Course: 11:38 Patient arrived in ED. as 12:19 Triage completed. as6 12:19 Arm band placed on. as6 12:23 Bobby Valle NP is PHCP. pm1 12:23 Lisa Lim MD is Attending Physician. pm1 13:01 Amparo Baires, KWAN is Primary Nurse. ld1 13:01 Patient has correct armband on for positive identification. Placed in gown. Bed in low ld1 position. Call light in reach. Side rails up X2. glue mounter operator on. Pulse ox on. NIBP on. Door closed. Noise minimized. Warm blanket given. 13:01 No provider procedures requiring assistance completed. ld1 14:39 Patient did not have IV access during this emergency room visit. ld1 Administered Medications: No medications were administered Medication: 13:01 VIS not applicable for this client. ld1 Outcome: 14:17 Discharge ordered by MD. pm1 14:38 Discharged to home via wheelchair, with family. ld1 14:38 Condition: stable 14:38 Discharge instructions given to patient, family, Instructed on discharge instructions, follow up and referral plans. Demonstrated understanding of instructions, follow-up care. 14:39 Patient left the ED. ld1 Signatures: Shannan Noel Patrick, NP CRM MANAGER pm1 Amparo Baires, RN RN ld1 Baltazar Badillo, KWAN RN as6
[2021-11-26 14:44] VITALS: TEMP 97.9
[2021-11-26 14:48] VITALS: BP 159/71; O2SAT 100
== END 2021-11-26 14:39 | disposition home or self-care (01) ==
LOC: ER 11:37
DX: I83.892 Varicose veins of left lower extremity with other complications (principal); M25.572 Pain in left ankle and joints of left foot
CPT/HCPCS: 99284

== ENCOUNTER 2023-03-26 12:42 | Observation (INO) | payer OTHER ==
--- OUTSIDE RECORDS SUMMARY | 2023-03-26 12:46 | XMS REPORT | Continuity of Care Document ---
:1945 Author Organization [facility] t Address [address] [facility] [address] [place] [address] Care Team Providers Name Role Phone ROCAEL [place] Primary Care Physician Unavailable SCAR REYES Attending Clinician Unavailable KELSEA ZARCO Attending Clinician Unavailable MARIANN CANALES Attending Clinician Unavailable RADIOLOGY Attending Clinician Unavailable Radiology Attending Clinician Unavailable Doctor Unassigned, [place] Attending Clinician Unavailable SCAR REYES Admitting Clinician Unavailable KELSEA ZARCO Admitting Clinician Unavailable MARIANN CANALES Admitting Clinician Unavailable MASOUD CAMERON Admitting Clinician Unavailable Payers Payer Name Policy Type Policy Number Effective Date Expiration Date S galilea [employer] MEDICARE HMO [id number] 2020 POS 00:00:00 [employer] MANAGED [id number] 2021 MEDICARE PPO-RIO 00:00:00 Problems Condition Condition Condition Status Onset Resolution Last Treating Co mments Source Name Details Category Date Date Treatment Clinician Date Cataract, Cataract, Disease Active 2017-06 Uni vers nuclear nuclear 06-09 [place] 00 [place] Branch Iodine Propensi Active Anaphylaxis 2017- IV iodine Univers ty to 0-18 only ity of adverse 00:00: [place] reaction 00 Medical s Branch Social History Social Habit Start Date Stop Date Quantity Comments Source Tobacco use and 2018-03-20 2018-03-20 Never used [facility] exposure 00:00:00 00:00:00 Medical Branch Sex [birth year] [facility] 00:00:00 00:00:00 Medical Branch Smoking Status Start Date Stop Date Source Never smoker [facility] Branch Medications Ordered Filled Start Stop Current Ordering Indication Dosage Frequency Signature Comments Components Source Medication Medication Date Date Medication? Clinician (SIG) Name Name azaTHIOprin Yes 50mg Take 50 mg Univers e 50 mg 4-03 by mouth ity of tablet 11:46: daily. [place] [address] Medical Branch benazepril- Yes 1{tbl} Take 1 Un idalia hydrochlort 4-03 tablet by ity of hiazide 11:46: mouth [place] 20-12.5 mg 14 daily. Medical per tablet Branch benazepril Yes 20mg Take 20 mg U nivers 20 mg 4-03 by mouth ity of tablet 11:46: daily. [address] Branch CALCIUM Yes Take by Univers CITRATE-VIT 4-03 mouth. ity of [place] D3 11:46: [place] ORAL Medical Branch folic Yes Take by Univers acid/multiv 4-03 mouth. ity of it-min/lute 11:46: [place] in (CENTRUM 14 Medical SILVER Branch ORAL) mesalamine Yes Take by [facility] ers (DELZICOL 4-03 mouth. ity of ORAL) 11:46: [place] [address] Medical Branch ascorbic 2018-0 Yes 500mg Take 500 Univ ers acid, 4-03 mg by ity of vitamin C, 11:46: mouth. [place] (VITAMIN C) 14 Medical 500 mg Branch tablet risedronate 2018- Yes 150mg Take 150 U nivers (ACTONEL) 4-03 mg by ity of 150 mg 11:46: mouth once [place] tablet 14 every Medical month. Branch loratadine- Yes 1{tbl} Take 1 Un [place] pseudoephed 4-03 tablet by ity of rine 11:46: mouth 2 [place] (ALAVERT 14 (two) Medical ALLERGY-SIN times Branch US) 5-120 daily. mg per tablet fluocinonid Yes Apply to Un idalia e 0.05 % 4-03 area(s) 2 ity of ointment 11:46: (two) [place] 14 times Medical daily. Branch albuterol 0 Yes Inhale. Unive rs sulfate 4-03 ity of (PROAIR HFA 11:46: [place] INHALE) 14 Medical Branch infliximab 0 Yes Inject Unive rs (REMICADE 4-03 intravenou ity of IV) 11:46: sly. [address] Branch acetaminoph Yes 1{tbl} Take 1 [...] by mouth ity of tablet 11:46: daily. [address] Branch benazepril- Yes 1{tbl} Take 1 Un [place] hydrochlort 4-03 tablet by ity of hiazide 11:46: mouth [place] 20-12.5 mg 14 daily. Medical per tablet Branch benazepril Yes 20mg Take 20 mg U nivers 20 mg 4-03 by mouth ity of tablet 11:46: daily. [address] Branch CALCIUM 0 Yes Take by Univers CITRATE-VIT 4-03 mouth. ity of [place] D3 11:46: [place] ORAL [address] [place] [address] Branch folic 0 Yes Take by Univers acid/multiv 4-03 mouth. ity of it-min/lute 11:46: [place] in (CENTRUM 14 Medical SILVER Branch ORAL) mesalamine Yes Take by Univ ers (DELZICOL 4-03 mouth. ity of ORAL) 11:46: [place] 14 Medical Branch ascorbic 2018-0 Yes 500mg Take 500 Univ ers acid, 4-03 mg by ity of vitamin C, 11:46: mouth. [place] (VITAMIN C) 14 Medical 500 mg Branch tablet risedronate Yes 150mg Take 150 U nivers (ACTONEL) 4-03 mg by ity of 150 mg 11:46: mouth once [place] tablet 14 every Medical month. Branch loratadine- Yes 1{tbl} Take 1 Un [place] pseudoephed 4-03 tablet by ity of rine 11:46: mouth 2 [place] (ALAVERT 14 (two) Medical ALLERGY-SIN times [place]) 5-120 daily. mg per tablet fluocinonid Yes Apply to Un idalia e 0.05 % 4-03 area(s) 2 ity of ointment 11:46: (two) [place] 14 times Medical daily. Branch albuterol Yes Inhale. Unive rs sulfate 4-03 ity of (PROAIR HFA 11:46: [place] INHALE) 14 Medical Branch infliximab 0 Yes Inject Unive rs (REMICADE 4-03 intravenou ity of IV) 11:46: sly. [place] [address] Medical Branch acetaminoph Yes 1{tbl} Take 1 Un idalia en-codeine 4-03 tablet by ity of (TYLENOL-CO 11:46: mouth [place] DEINE #3) 14 every 4 Medical 300-30 mg (four) Branch tablet hours as needed for Pain (scale 4-6). fluticasone Yes 1{puff} Inhale 1 Univers -salmeterol 4-03 Puff every it y of (ADVAIR 11:46: 12 [place] DISKUS) 14 (twelve) Medical 250-50 hours. Branch mcg/dose inhalation disk Vital Signs Vital Name Observation Time Observation Value Comments Source WEIGHT 2020-08-04 05:00:00 118.752 kg HEIGHT 2020-08-03 23:00:00 203.2 cm WEIGHT 2020-08-04 05:00:00 118.752 kg HEIGHT 2020-08-03 23:00:00 203.2 cm Procedures Procedure Date / Time Performed Performing Clinician Sourc e XR SHOULDER 2+ VW 2021-11-23 19:38:11 Masoud Cameron [facility] ASSIGNMENT OF BENEFITS 2021-11-23 19:02:51 Doctor Unassigned, No [facility] Name [facility] Encounters Start End Encounter Admission Attending Care Care Encounter Source Date/Time Date/Time Type Type Clinicians Facility Department ID 2021-03-11 Outpatient FER [facility] Surgery [id number] SLE 07:15:52 ARLENE, SCAR 2021-03-11 Inpatient CAROLEE [facility] Surgery [id number] SLE 06:10:56 KELSEA 2020-08-03 [facility] Cardiovascu [id number] SLE 22:49:00 MARIANN l 2021-11-23 2021-11-23 Outpatient R RADIOLOGY [facility] [id number] Univers 14:07:27 23:59:00 ity of [facility] 2021-11-23 2021-11-23 Hospital Radiology [facility] [id number] Univers 14:07:27 23:59:00 Encounter [place] [id number] ity of [place] [id number] [facility] [id number] [facility] 807 Branch 2021-11-23 2021-11-23 Orders Doctor TREVOR [id number] Univers 00:00:00 00:00:00 Only Unassigned, [place] [id number] ity of [place] [facility] [id number] [place] [id number] [facility] 009 Branch Results Test Description Test Time [...] NOT 1092) ACCURATE CRE ATININE CLEARANCE IN DC EDICTING GLOMERULAR FILT RATION RATE. ESTIMATED GFR IS NOT APPLICABLE FOR DIALYSIS PATIENTS. Mail Room Clerk ID - ADMINCBC (HEMOGRAM ONLY)2020-08-09 05:33:00 Test [...] (BEAKER) (test code = 413) BASIC METABOLIC [id number] 05:53:00 Test Item Value Reference Range Interpretation [...] S NOT APPLICABLE FOR DIALYSIS PATIEN TS. Mail Room Clerk ID - EDASICBC (HEMOGRAM ONLY)2020-08-08 05:24:00 Test [...] (BEAKER) (test code = 413) BASIC METABOLIC [id number] 06:26:00 Test Item Value Reference Range Interpretation [...] S NOT APPLICABLE FOR DIALYSIS PATIEN TS. Mail Room Clerk ID - HERBIE [facility] (HEMOGRAM ONLY)2020-08-07 06:02:00 Test Item Value Reference [...] (BEAKER) (test code = 413) MR, CARDIAC, [id number] 18:43:00With viability studyUnlisted Reason for Exam - Click Yes and Enter Reason Below->NoWith viabilitystudy [facility] : 1945 Sex: MFINALREPORT Cardiovascular MRI - Chest: 08/05/2020 1:22 PM. Comparison: None available. Clinical History: 74 years old Male with Afib and Crohn's disease, presented to an OSH on 08/01 with chest pain concerning for unstable angina, for which he underwent SCA which reported 70-80% ostial LMdisease, for which he was transferred here for further intervention options. Indication: This study is performed to assess myocardial damage, viability, and to quantitate left ventricular and valvular function. Technique: Stephanie Achieva 1.5 Hailey MRI scanner.* Turbo spin echo and [...] left pleural effusion. The pulmonary arteries appear no rmal (main PA: 3.0 cm). There is trivial pericardial effusion noted. VASCULAR:The aortic root is symmetric. The sinotubular junction is preserved. The ascending thoracic aorta and aortic arch: Normal in course, caliber and contour. The arch vessel branching pattern is normal. The imaged arch branch ves sels are patent proximally. The descending thoracic aorta: Normal in course, caliber and contour. There is no acute aortic pathology, such as dissection, intramural hematoma, or contained rupture. CARDIAC CHAMBERS:The cardiac chambers have normal atrioventricular and ventriculoarterial concordance, aswell as normal systemic and pulmonary venous return. [...] cc); ESVi = 72 cc/m2 (normal 16-38 cc/m2).Strokevolume = 49 cc (normal 76-132 cc); SVi = 19 cc/m2 (normal 41-65 cc/m2).LVEF = 21 % (normal 55-75%).Cardiac Output = 5.1 l/min.; Cardiac Index = 2.0 l/min/m2.LV mass = 176 gm (normal 108-184 gm); LVMi =68 gm/m2 (normal 58-91 gm/m2). There is no increased myocardial signal intensity on T2 STIR imaging to suggest myocardial inflammation or edema. Delayed-enhancement imaging reveals uniformly "nulled" myocardium, signifying that there has been no prior ischemic myocardial damage. There is also no defini te evidence of interstitial fibrosis to suggest an infiltrative process. No mural or apical left ventricular thrombus is identified. Right ventricle:The right ventricle is normal in size and shape, andhas moderately reduced systolic function. Quantitative right ventricular functional values are as follows:EDV = 165 cc (normal 113-213 cc); EDVi = 64 cc/m2 (normal 60-106 cc/m2).ESV = 105 cc (normal 27-86 cc); ESVi = 41 cc/m2 (normal 14-43 cc/m2).Stroke volume = 59 cc (normal 72-140 cc); SVi = 23 cc/m2 (normal 38-70 cc/m2).RVEF = 36 % (normal 53- 78%).Cardiac Output = 6.1 l/min.; Cardiac Index = 2.4 l/min/m2. VALVES:The mitral valve is mildly thickened. There is moderate imaged mitral regurgitation. Atrial fibrillation limiting the precise volumetric analysis of mitral regurgitation. The aortic valve is trileaflet. There is trivial imaged aortic regurgitation.Flow quantification through the ascending aorta:*Forward volume: 47 cc/beat*Reverse volume: 1 cc/beat*Net forward volume: 46 cc/beat*Aortic r egurgitant fraction: 2 % The tricuspid valve is mildly thickened. There is mild imaged tricuspid regurgitation. ABDOMEN:Limited imaging through the upper abdomen reveals no abnormalities of the imaged organs. IMPRESSION: The constellation of findings is most suggestive of a dilated, non-ischemic cardio myopathy. 1. Normal left ventricular size with reduced global systolic function (LVEF: 21%, LVEDVi: 92 cc/m2). No discrete myocardial fibrosis on delayed- enhancement imaging to suggest an infiltrative process or prior ischemic injury. No mural or apical left ventricular thrombus is identified. 2. Normal right ventricular size and has moderately reduced systolic function. (RVEF: 36%; RVEDVi: 64 cc/m2). 3. Severe left and moderate right atrial enlargement. Moderate imaged mitral valve regurgitation. Signed: Edouard Gatica MDReport Verified Date/Time: 08/06/2020 18:43:25 [id number] 10:32:00 Test Item Value Reference Range Interpretation Comments ACTIVATED CLOTTING TIME 246 sec : 74 -137 seconds, (BEAKER) (test code = Baseli ne: TESTED AT 441) [facility] [address] [facility], [facility] 30: Mail Room Clerk/Techni theodore ID = [id number] for NIRAJ LENZ BASIC METABOLIC [id number] 07:09:00 Test Item Value Reference Range Interpretation [...] S NOT APPLICABLE FOR DIALYSIS PATIEN TS. Mail Room Clerk ID - EDASICBC (HEMOGRAM ONLY)2020-08-06 06:31:00 Test [...] 0-0 (BEAKER) (test code = 413) CALCIUM, [id number] 05:46:00 Test Item Value Reference Range Interpretation Comments CALCIUM IONIZED (BEAKER) (test 1.05 mmol/L 1.12-1.27 L code = 698) PH, BLOOD (BEAKER) (test code = 7.48 1810) BASIC METABOLIC [id number] 05:44:00 Test Item Value Reference Range Interpretation [...] S NOT APPLICABLE FOR DIALYSIS PATIEN TS. Mail Room Clerk ID - DBCBC W/PLT COUNT & AUTO [id number] 05:37:00 Test Item Value Reference Range Interpretation [...] (test code = 2801) RAD, CHEST, 2 [id number] 01:10:00Reason for exam:->sob [facility] : 1945 Sex: MFINALREPORT CLINICAL HISTORY: Shortness of breath The upright images of the chest are submitted. COMPARISON:None. The cardiac silhouette is within normal limits for size. There is atherosclerotic calcification of the tortuous aorta. There are small bilateral pleural effusions. There isno focal consolidation, pneumothorax, evidence of overt pulmonary edema or acute bony abnormality. Si gned: Jose Kim MDReport Verified Date/Time: 08/05/2020 01:10:48 POCT- GLUCOSE [id number] 17:57:00 Test Item Value Reference Range Interpretation Comments POC-GLUCOSE METER 149 mg/dL 70-110 H : TESTED A T [facility] 6720 (BEAKER) (test code = [place], 1538) [address]: Mail Room Clerk/Techni theodore ID = [id number] for ARUNA OWUSU HEMOGLOBIN AND [id number] 16:53:00 Test Item Value Reference Range Interpretation Comments HEMOGLOBIN (BEAKER) (test code = 14.2 GM/DL 13.7-17.5 410) HEMATOCRIT (BEAKER) (test code = 43.4 % 40.1-51.0 411) Mail Room Clerk ID - [id number] [id number] 09:27:00 Test Item Value Reference Range Interpretation [...] failure, acidosis, acute neurological disease, and persistent tachyarrhythmia.Mail Room Clerk ID - ADMINHEMOGLOBIN A1C 2020-08-04 08:42:00 Test Item Value Reference Range Interpretation Comments HEMOGLOBIN A1C (BEAKER) (test code = 6.5 % 4.3-6.1 H 368) SARS-COV2/RT-PCR ([facility])2020-08-04 08:28:00 Test Item Value Reference Range Interpretation Comments SARS-COV2/RT-PCR (test Negative Not Detected, Negative, code = 4401264) See external report for linked test SARS-COV-2 PERFORMING LAB [facility] IMTIAZ (test code = 8496710) Negative result for this test determines that [...] individuals suspected of COVID-19 by their healthcare provider.This test [...] justifying the authorization of the emergency use ofin vitro diagnostic tests for detection and/or diagnosis of COVID-19 is terminated under Section 564(b)(2) of the Act or the EUA is revoked under Section 564(g) of the Act.Fact Sheet for Healthcare Prov iders:https://www.[facility]/sites/default/files/product/documents/Fact_Sheet_HC _Ugjqdoxmy_Gvvu_LNTM-HhD-0.pdfFact Sheet for Healthcare Patients:https://www.[employer]/sites/default/files/product/docume nts/Cwsw_Qklon_Ourmnapz_Aayk_TTLH-OvF-2.pdfPerforming Laboratory:[facility], [place] [address]QWUEY METABOLIC PANEL 2020-08-04 05:54:00 Test Item Value [...] S NOT APPLICABLE FOR DIALYSIS PATIEN TS. Mail Room Clerk ID - HERBIE MCBC W/PLT COUNT & AUTO [id number] 05:19:00 Test Item Value Reference Range Interpretation [...] code = 2801) URINALYSIS WITH MICROSCOPIC IF [id number] 03:14:00 Test Item Value Reference Range Interpretation [...] = 463) SOURCE(BEAKER) (test code = 2795) Mail Room Clerk ID - [auto]Mail Room Clerk ID - QCURINALYSIS [id number] 03:14:00 Test Item Value Reference Range Interpretation Comments RBC UA (BEAKER) (test code = 519) 20 /HPF WBC UA (BEAKER) (test code = 520) < /HPF SQUAMOUS EPITHELIAL (BEAKER) (test 2 /HPF code = 516) Mail Room Clerk ID - QCCREATININE, RANDOM [id number] 02:25:00 Test Item Value Reference Range Interpretation Comments CREATININE URINE (BEAKER) (test 100.7 mg/dL code = 375) Reference Range: No NormalsOperator ID - HERBIE MSODIUM, RANDOM [id number] 02:25:00 Test Item Value Reference Range Interpretation Comments SODIUM URINE (BEAKER) (test code = 42 meq/L 243) Reference Range: No NormalsOperator ID - HERBIE MUREA NITROGEN, RANDOM URINE 2020-08-04 02:25:00 Test Item Value Reference Range Interpretation Comments UREA NITROGEN URINE (BEAKER) (test 1283 mg/dL code = 538) Reference Range: No NormalsOperator ID - HERBIE MBASIC METABOLIC [id number] 02:22:00 Test Item Value Reference Range Interpretation [...] S NOT APPLICABLE FOR DIALYSIS PATIEN TS. Mail Room Clerk ID - HERBIE [id number] 02:12:00 Test Item Value Reference Range Interpretation Comments MAGNESIUM (BEAKER) (test code = 2.1 mg/dL 1.6-2.6 627) Mail Room Clerk ID - HERBIE MLIPID [id number] 02:12:00 Test Item Value Reference Range Interpretation Comments TRIGLYCERIDES (BEAKER) (test code = 72 mg/dL 540) CHOLESTEROL (BEAKER) (test code = 135 mg/dL 631) HDL CHOLESTEROL (BEAKER) (test code 38 mg/dL = 976) LDL CHOLESTEROL CALCULATED (BEAKER) 83 mg/dL (test code = 633) Triglyceride Reference Range: Low Risk <150 Borderline 150-199 High Risk 200- 499 Very High Risk >=500Cholesterol Reference Range: Low Risk <200 Borderline 200-239 High Risk >240HDL Cholesterol Reference Range: Low Risk >=60 High Risk <40LDL Cholesterol Reference Range: Optimal <100 Near Optimal 100-129 Borderline 130-159 High 160-189 Very High >=190 Mail Room Clerk ID - HERBIE MHEPATIC FUNCTION [id number] 02:12:00 Test Item Value Reference Range Interpretation [...] code = 75 U/L 6-55 H 347) Mail Room Clerk ID - HERBIE MB-TYPE NATRIURETIC FACTOR (BNP)2020-08-04 02:12:00 Test Item Value Reference Range Interpretation Comments B-TYPE NATRIURETIC PEPTIDE 1067 pg/mL 0-100 H (BEAKER) (test code = 700) Mail Room Clerk ID - HERBIE MPROTHROMBIN [id number] 01:50:00 Test Item Value Reference Range Interpretation Comments PROTIME (BEAKER) 14.6 seconds 11.9-14.2 H (test code = 759) INR (BEAKER) (test 1.17 See_Comment [Automat ed message] code = 370) The system [employer] generated this result transmitted ref erence range: <=5.90. The reference range was not used to int erpret this result as normal/abnormal . Effective 10/29/2018: PT Reference Range ChangeNew: 11.9-14.2 Previous: 11.7- 14.7RECOMMENDED COUMADIN/WARFARIN INR THERAPY RANGESSTANDARD DOSE: 2.0-3.0 Includes: PROPHYLAXIS for venous thrombosis, systemic embolization; TREATMENT for venous thrombosis and/or pulmonary embolus.HIGH RISK: Target INR is 2.5-3.5 for patients wiht mechanical heart valves.Prior to initiating heparinAPTT 2020-08-04 01:50:00 Test Item Value Reference Range Interpretation Comments PARTIAL THROMBOPLASTIN TIME 42.6 seconds 22.5-36.0 H (BEAKER) (test code = 760) Prior to initiating heparinCBC W/PLT COUNT & AUTO [id number] 01:29:00 Test Item Value Reference Range Interpretation [...] % 0-1 PERCENT (BEAKER) (test code = 0410)
--- NOTE | 2023-03-26 13:17 | ER ---
Nurse's Notes [facility] Name: Felipe Ross Age: 77 yrs Sex: Male : 1945 Arrival Date: 03/26/2023 Time: 12:42 Bed 13 Private MD: Diagnosis: Mild intermittent asthma with (acute) exacerbation;Acute upper respiratory infection, unspecified;SARS-associated coronavirus as the cause of diseases classified elsewhere;Hypokalemia Presentation: 03/26 12:44 Chief complaint: EMS states: patient called for difficulty breathing, possible asthma ko1 attack, did test positive for Covid yesterday at home. No fever. Coronavirus screen: cough unrelated to allergies, difficulty breathing, shortness of breath. Ebola Screen: No symptoms or risks identified at this time. Initial Sepsis Screen: Does the patient meet any 2 criteria? No. Patient's initial sepsis screen is negative. Does the patient have a suspected source of infection? No. Patient's initial sepsis screen is negative. Risk Assessment: Do you want to hurt yourself or someone else? Patient reports no desire to harm self or others. Onset of symptoms was March 26, 2023. Care prior to arrival: Medication(s) given: Albuterol Neb x 1, Atrovent Neb x 1, Normal saline infusion, 1000 mL, solumedrol 125 mg iv IV initiated. 20 GA, in the right hand. 12:44 Method Of Arrival: EMS: [facility] ko1 12:44 Acuity: SYDNEE 3 ko1 Triage Assessment: 12:47 General: Appears in no apparent distress. Behavior is calm, cooperative, appropriate ko1 for age. Pain: Denies pain. Historical: - Allergies: 12:47 No Known Allergies; ko1 - PMHx: 12:47 Asthma; herniated discs; Mitral Valve Regurgitation; Hypertension; Chronic back/leg ko1 pain; Left atrium enlargement; Atrial Fib; - Immunization history:: Adult Immunizations up to date. - Social history:: Smoking status: Patient denies any tobacco usage or history of. Screenin:00 [facility] ED Fall Risk Assessment (Adult) History of falling in the last 3 months, ko1 including since admission No falls in past 3 months (0 pts) Confusion or Disorientation No (0 pts) Intoxicated or Sedated No (0 pts) Impaired Gait No (0 pts) Mobility Assist Device Used No (0 pt) Altered Elimination No (0 pt) Score/Fall Risk Level 0 - 2 = Low Risk Oriented to surroundings, Maintained a safe environment, Educated pt \T\ family on fall prevention, incl call for assistance when getting out of bed, Assessed \T\ reinforced patient's understanding of fall precautions, Provided non-skid footwear, Hourly rounding (assess needs \T\ fall precautionary measures) done, Used ambulatory aids as needed (educated on \T\ assisted with), Used gait belt as appropriate. Abuse screen: Denies threats or abuse. Denies injuries from another. Nutritional screening: No deficits noted. Tuberculosis screening: No symptoms or risk factors identified. Assessment: 13:00 General: Appears in no apparent distress. uncomfortable, Behavior is calm, cooperative, ko1 appropriate for age. Pain: Denies pain. Neuro: No deficits noted. Cardiovascular: No deficits noted. Respiratory: Reports shortness of breath cough that is. GI: No deficits noted. : No deficits noted. EENT: No deficits noted. Derm: No deficits noted. Musculoskeletal: No deficits noted. Vital Signs: 12:44 BP 173 / 79; Pulse 63; Resp 20; Temp 98; Pulse Ox 100% on Nebulizer Mask; Weight 108.86 ko1 kg; Height 6 ft. 8 in. ; 13:00 BP 162 / 74; Pulse 56; Resp 18; Pulse Ox 100% on R/A; ko1 13:30 BP 184 / 88; Pulse 60; Resp 18; Pulse Ox 100% on R/A; ko1 14:30 BP 165 / 82; Pulse 57; Resp 18; Pulse Ox 95% on R/A; ko1 15:00 BP 172 / 78; Pulse 58; Resp 18; Pulse Ox 100% on Nebulizer Mask; ko1 12:44 Body Mass Index 26.37 (108.86 kg, 203.2 cm) ko1 ED Course: 12:44 Patient arrived in ED. ap3 12:44 Sanna Garrett, KWAN is Primary Nurse. ko1 12:46 Waqas Estrada MD is Attending Physician. zonia 12:47 Triage completed. ko1 12:47 Arm band placed on right wrist. Patient placed in an exam room, on a stretcher, on ko1 oxygen, on cardiac cath technologist, on pulse oximetry, Patient notified of wait time. 13:00 Patient has correct armband on for positive identification. Bed in low position. Call ko1 light in reach. Side rails up X 1. Client placed on continuous cardiac and pulse oximetry monitoring. NIBP monitoring applied. compliance monitor on. Door closed. Noise minimized. Lights dimmed. Warm blanket given. 13:16 Mando Lora MD is Hospitalizing Provider. [facility] 13:25 EKG done, by ED staff, reviewed by Waqas Estrada MD. Maintain EMS IV. Dressing intact. mb9 Good blood return noted. Site clean \T\ dry. Gauge \T\ site: 20 g to right hand. 13:26 Basic Metabolic Panel Sent. mb9 13:26 CBC with Diff Sent. mb9 13:26 LFT's Sent. mb9 13:26 Magnesium Sent. mb9 13:26 NT PRO-BNP Sent. mb9 13:26 PT-INR Sent. mb9 13:26 Troponin HS Sent. mb9 13:26 CRP Sent. mb9 15:00 Blood Culture Adult (2) Sent. ko1 17:46 Provided Education on: na. ko1 17:46 No provider procedures requiring assistance completed. Patient admitted, IV remains in ko1 place. Administered Medications: 13:16 Not Given (Duplicate Order): [id number] mg IVPB once over 1 hrs; mix in 250 mL NS [facility] 14:25 Drug: NS 0.9% IV 500 ml IV at bolus once Route: IV; Rate: bolus; Site: right hand; ko1 14:25 Drug: Famotidine IVP 20 mg IVP once; dilute with 10 mL 0.9% NaCl; give over 2 minutes ko Route: IVP; Site: right hand; 15:00 Drug: Potassium PO Effervescent Tablet 25 mEq PO once; dissolve in 4 ounces of water or ko1 juice Route: PO; 15:00 Drug: Levalbuterol Inhalation 1.25 mg Inhalation once Route: Inhalation; ko1 15:04 Drug: NS 0.9% IV 1000 ml IV at 125 ml/hr continuous Route: IV; Rate: 125 ml/hr; Site: ko1 right hand; 15:04 Drug: Rocephin IV 1 grams IV at per protocol once; Given slow IV push per pharmacy ko1 instructions Route: IV; Rate: per protocol; Site: right hand; Medication: 17:46 VIS not applicable for this client. ko1 Outcome: 13:17 Decision to Hospitalize by Provider. zonia 17:46 Admitted to Tele accompanied by tech, via wheelchair, room 417, with chart, ko1 17:46 Condition: stable 17:46 Instructed on the need for admit, 18:01 Patient left the ED. mb9 Signatures: Waqas Estrada MD MD cha Prokisch, Amanda, RN RN ap3 Sanna Garrett RN RN ko1 Madelyn Vega RN RN mb9
--- NOTE | 2023-03-26 13:17 | EDPHYS ---
Physician Documentation [facility] Name: Felipe Ross Age: 77 yrs Sex: Male : 1945 Arrival Date: 03/26/2023 Time: 12:42 Bed 13 Private MD: ED Physician Waqas Estrada HPI: 03/26 13:12 This 77 yrs old Male presents to ER via EMS with complaints of sob, asthma, zonia covid positive. Historical: - Allergies: 12:47 No Known Allergies; ko1 - PMHx: 12:47 Asthma; herniated discs; Mitral Valve Regurgitation; Hypertension; Chronic back/leg ko1 pain; Left atrium enlargement; Atrial Fib; - Immunization history:: Adult Immunizations up to date. - Social history:: Smoking status: Patient denies any tobacco usage or history of. ROS: 13:13 Constitutional: Negative for fever, chills, and weight loss, Eyes: Negative for injury, zonia pain, redness, and discharge, ENT: Negative for injury, pain, and discharge, Neck: Negative for injury, pain, and swelling, Cardiovascular: Negative for chest pain, palpitations, and edema, Abdomen/GI: Negative for abdominal pain, nausea, vomiting, diarrhea, and constipation, Back: Negative for injury and pain, : Negative for injury, bleeding, discharge, and swelling, MS/Extremity: Negative for injury and deformity, Skin: Negative for injury, rash, and discoloration, Neuro: Negative for headache, weakness, numbness, tingling, and seizure, Psych: Negative for depression, anxiety, suicide ideation, homicidal ideation, and hallucinations, Allergy/Immunology: Negative for hives, rash, and allergies, Endocrine: Negative for neck swelling, polydipsia, polyuria, polyphagia, and marked weight changes, Hematologic/Lymphatic: Negative for swollen nodes, abnormal bleeding, and unusual bruising, 13:13 Respiratory: Positive for cough, shortness of breath, at rest. wheezing, expiratory, Exam: 13:13 Constitutional: This is a well developed, well nourished patient who is awake, alert, zonia and in no acute distress. Head/Face: Normocephalic, atraumatic. Eyes: Pupils equal round and reactive to light, extra-ocular motions intact. Lids and lashes normal. Conjunctiva and sclera are non-icteric and not injected. Cornea within normal limits. Periorbital areas with no swelling, redness, or edema. ENT: Nares patent. No nasal discharge, no septal abnormalities noted. Tympanic membranes are normal and external auditory canals are clear. Oropharynx with no redness, swelling, or masses, exudates, or evidence of obstruction, uvula midline. Mucous membranes moist. Neck: Trachea midline, no thyromegaly or masses palpated, and no cervical lymphadenopathy. Supple, full range of motion without nuchal rigidity, or vertebral point tenderness. No Meningismus. Chest/axilla: Normal chest wall appearance and motion. Nontender with no deformity. No lesions are appreciated. Cardiovascular: Regular rate and rhythm with a normal S1 and S2. No gallops, murmurs, or rubs. Normal PMI, no JVD. No pulse deficits. Abdomen/GI: Soft, non-tender, with normal bowel sounds. No distension or tympany. No guarding or rebound. No evidence of tenderness throughout. Back: No spinal tenderness. No costovertebral tenderness. Full range of motion. Male : Normal genitalia with no discharge or lesions. Skin: Warm, dry with normal turgor. Normal color with no rashes, no lesions, and no evidence of cellulitis. MS/ Extremity: Pulses equal, no cyanosis. Neurovascular intact. Full, normal range of motion. Neuro: Awake and alert, GCS 15, oriented to person, place, time, and situation. Cranial nerves II-XII grossly intact. Motor strength 5/5 in all extremities. Sensory grossly intact. Cerebellar exam normal. Normal gait. Psych: Awake, alert, with orientation to person, place and time. Behavior, mood, and affect are within normal limits. 13:13 Respiratory: mild respiratory distress is noted, moderate respiratory distress is noted, Respirations: labored breathing, that is mild, Breath sounds: decreased breath sounds, rhonchi, stridor, is not appreciated, wheezing: expiratory 13:45 ECG was reviewed by the Attending Physician. [facility] Vital Signs: 12:44 BP 173 / 79; Pulse 63; Resp 20; Temp 98; Pulse Ox 100% on Nebulizer Mask; Weight 108.86 ko1 kg; Height 6 ft. 8 in. ; 13:00 BP 162 / 74; Pulse 56; Resp 18; Pulse Ox 100% on R/A; ko1 13:30 BP 184 / 88; Pulse 60; Resp 18; Pulse Ox 100% on R/A; ko1 14:30 BP 165 / 82; Pulse 57; Resp 18; Pulse Ox 95% on R/A; ko1 15:00 BP 172 / 78; Pulse 58; Resp 18; Pulse Ox 100% on Nebulizer Mask; ko1 12:44 Body Mass Index 26.37 (108.86 kg, 203.2 cm) ko1 MDM: 12:46 Patient medically screened. zonia 13:14 Differential diagnosis: Anemia asthma, Bronchitis CHF exacerbation, Chronic Obstructive zonia Pulmonary Disease obstructed airway, bronchitis, flu, URI. Antibiotic administration: Rocephin and Zithromax given. Differential Diagnosis: Obstructed Airway Bronchitis Influenza Upper Respiratory Infection Sinusitis Asthma Exacerbation Viral Syndrome Pneumonia. Immunization status: Pneumococcal vaccine: Influenza vaccine: Data reviewed: vital signs, nurses notes, lab test result(s), EKG, radiologic studies, CT scan, plain films. Consideration of Admission/Observation Patient was admitted/placed on observation. Escalation of care including admission/observation considered. I considered the following discharge prescriptions or medication management in the emergency department Medications were administered in the Emergency Department. See MAR. Independent interpretation of the following test(s) in the Emergency Department EKG: See my EKG interpretation above. Test considered but Not performed: CT: no ct chest. 03/26 13:10 Order name: Basic Metabolic Panel; Complete Time: 14:18 [facility] 03/26 13:10 Order name: CBC with Diff; Complete Time: 14:18 [facility] 03/26 13:10 Order name: LFT's; Complete Time: 14:18 [facility] 03/26 13:10 Order name: Magnesium; Complete Time: 14:18 [facility] 03/26 13:10 Order name: NT PRO-BNP; Complete Time: 14:18 [facility] 03/26 13:10 Order name: PT-INR; Complete Time: 14:18 [facility] 03/26 13:10 Order name: Troponin HS; Complete Time: 14:18 [facility] 03/26 13:10 Order name: CRP; Complete Time: 14:18 [facility] 03/26 13:13 Order name: Blood Culture Adult (2) [facility] 03/26 13:13 Order name: Lactate w/ 2H reflex if indic.; Complete Time: 14:18 [facility] 03/26 13:10 Order name: XRAY Chest (1 view) [facility] 03/26 13:13 Order name: US Extremity Venous W Compression Eder [facility] 03/26 16:39 Order name: RAD; Complete Time: 17:33 [facility] 03/26 16:47 Order name: US; Complete Time: 17:33 [facility] 03/26 13:10 Order name: EKG; Complete Time: 13:11 [facility] 03/26 13:22 Order name: CONS Physician Consult [facility] 03/26 13:10 Order name: Cardiac monitoring; Complete Time: 13:14 [facility] 03/26 13:10 Order name: EKG - Nurse/Tech; Complete Time: 13:26 [facility] 03/26 13:10 Order name: IV Saline Lock; Complete Time: 13: [facility] 03/26 13:10 Order name: Labs collected and sent; Complete Time: : [facility] 03/26 13:10 Order name: O2 Per Protocol; Complete Time: 13:14 [facility] 03/26 13:10 Order name: O2 Sat Monitoring; Complete Time: 13:14 [facility] EC:45 Rate is 60 beats/min. Rhythm is regular. QRS [place] is Normal. CO interval is prolonged [facility] at 246 msec. QRS interval is normal. QT interval is normal. No Q waves. T waves are Normal. No ST changes noted. Clinical impression: No change from prior ECG, 1st degree heart block, and No evidence of ischemia. Interpreted by me. Reviewed by me. Administered Medications: 13:16 Not Given (Duplicate Order): [id number] mg IVPB once over 1 hrs; mix in 250 mL NS [facility] 14:25 Drug: NS 0.9% IV 500 ml IV at bolus once Route: IV; Rate: bolus; Site: right hand; ko1 14:25 Drug: Famotidine IVP 20 mg IVP once; dilute with 10 mL 0.9% NaCl; give over 2 minutes ko1 Route: IVP; Site: right hand; 15:00 Drug: Potassium PO Effervescent Tablet 25 mEq PO once; dissolve in 4 ounces of water or ko1 juice Route: PO; 15:00 Drug: Levalbuterol Inhalation 1.25 mg Inhalation once Route: Inhalation; ko1 15:04 Drug: NS 0.9% IV 1000 ml IV at 125 ml/hr continuous Route: IV; Rate: 125 ml/hr; Site: ko1 right hand; 15:04 Drug: Rocephin IV 1 grams IV at per protocol once; Given slow IV push per pharmacy ko1 instructions Route: IV; Rate: per protocol; Site: right hand; Disposition Summary: 03/26/23 13:17 Hospitalization Ordered Notes: Hospitalization Status: Inpatient Admission zonia Provider: Mando Lora cha Condition: Fair zonia Problem: an acute exacerbation zonia Symptoms: have improved zonia Bed/Room Type: Standard zonia Location: Telemetry/MedSurg (Inpatient)(03/26/23 17:07) bd Room Assignment: 417(03/26/23 17:07) bd Diagnosis - Mild intermittent asthma with (acute) exacerbation zonia - Acute upper respiratory infection, unspecified zonia - SARS-associated coronavirus as the cause of diseases classified elsewhere zonia - Hypokalemia zonia Forms: - Medication Reconciliation Form zonia - SBAR form zonia - Leadership Thank You Letter zonia Signatures: Dispatcher [employer] EDMS Elizabeth Sosa Corey, MD MD cha Oliver, Kathy RN RN ko1 Corrections: (The following items were deleted from the chart) 15:25 13:17 Telemetry/MedSurg (observation) zonia bd 15:25 13:17 zonia bd 17:07 15:25 [facility] ER HOLD bd bd 17:07 15:25 ERHOLD- bd bd
[2023-03-26 13:37] LABS: Absolute Lymphocytes (CBC) 2.4 K/uL (0.7-4.9); Hematocrit 37.9 % (39.6-49.0); Lymphocytes % 41.2 % (15.3-44.8); MCV 97.9 fL (80-100); MPV 7.1 fL (7.6-11.3); Platelets 161 thou/uL (152-406); Protime INR 1.19; RBC Red Blood Cell Count 3.88 M/uL (4.33-5.43)
[2023-03-26 13:54] LABS: Albumin 3.4 g/dL (3.4-5.0); Bilirubin Direct 0.2 mg/dL (0-0.2); Bilirubin Indirect, Calculated 0.6 mg/dL (0.2-0.8); Bilirubin Total 0.8 mg/dL (0.2-1.0); C-Reactive Protein 3.67 mg/L (<3.00); Magnesium 2.6 mg/dL (1.6-2.4); Potassium 3.3 mEq/L (3.5-5.1); Protein, Total 7.4 g/dL (6.4-8.2); Troponin High Sensitivity 10.3 pg/mL (<58.9)
[2023-03-26] MEDS ORDERED: FAMOTIDINE 20 MG/2 ML VIAL IV ONE (14:04)
[2023-03-26] MEDS ORDERED: CEFTRIAXONE 1000 MG/VIAL ONE (14:04)
[2023-03-26] MEDS ORDERED: NA CHLORIDE 0.9% 500 ML ONE (14:04)
[2023-03-26] MEDS ORDERED: AZITHROMYCIN 500 MG INJ IVPB ONE (14:04)
[2023-03-26] MEDS ORDERED: POTASSIUM 25 MEQ EFFERV TAB ONE (14:54)
[2023-03-26] MEDS ORDERED: LEVALBUTEROL 1.25 MG/3 ML NEB ONE (14:54)
[2023-03-26] MEDS ORDERED: NA CHLORIDE 0.9% 250 ML ONE (15:28)
[2023-03-26] MEDS ORDERED: ALBUTEROL 2.5 MG/3 ML NEB SOL NEB PRN (15:48)
[2023-03-26] MEDS ORDERED: ONDANSETRON 4 MG/2 ML VIAL IV PRN (15:48)
[2023-03-26] MEDS ORDERED: IPRATROPIUM BROM 0.5MG/2.5ML NEB PRN (15:48)
--- NOTE | 2023-03-26 16:38 | RAD REPORT ---
[facility] 3:04 pm CLINICAL HISTORY: Cough;Dyspnea COMPARISON: Chest Single View dated 08/22/2020; Chest Pa And Lat (2 Views) dated 08/01/2020; Chest Sing le View dated 11/13/2018; Chest Pa And Lat (2 Views) dated 06/11/2018 TECHNIQUE: Portable AP view of the chest. FINDINGS: The lungs are clear. Mild hyperinflation. Bibasilar atelectasis and elevation of the left hemidiaphragm, stable. No pneumothorax or effusion. The cardiomediastinal contours are unremarkable. IMPRESSION: No acute cardiopulmonary process. Bibasilar atelectatic changes.
[2023-03-26] MEDS ORDERED: ACETAMINOPHEN 325 MG TABLET PO PRN (16:44)
--- NOTE | 2023-03-26 16:46 | RAD REPORT ---
EXAM DESCRIPTION: US - Extrem Venous W Compress Eder - 03/26/2023 2:43 pm CLINICAL HISTORY: Pain COMPARISON: None. TECHNIQUE: Real-time sonographic evaluation of the bilateral lower extremity deep venous systems was performed. FINDINGS: Normal compressibility, flow augmentation, phasic flow and spontaneous flow is identified in both the left and right lower extremity deep venous systems. No intraluminal filling defects seen. IMPRESSION: No DVT in either lower extremity.
[2023-03-26] MEDS: METHYLPREDNISOLONE 40 MG INJ IV SCH (17:00)
[2023-03-26] MEDS ORDERED: METHYLPREDNISOLONE 40 MG INJ ONE (17:21)
[2023-03-26] MEDS ORDERED: cloNIDine HCL 0.1 MG TAB PO PRN (18:23)
[2023-03-26] MEDS ORDERED: AMLODIPINE 5 MG TAB PO ONE (18:30)
[2023-03-26] MEDS: FAMOTIDINE 20 MG/2 ML VIAL IV SCH (21:14)
[2023-03-27] MEDS: METHYLPREDNISOLONE 40 MG INJ IV SCH ×2 (00:10→10:32)
[2023-03-27] MEDS: APIXABAN 5 MG TABLET PO SCH ×2 (00:10→10:33)
--- NOTE | 2023-03-27 03:57 | HP ---
Date of Admission: 03/26/2023 Chief Complaint: Shortness of breath. History Of Present Illness: This is a 77-year-old very pleasant male patient who started to have symptoms about 4 to 5 days ago with cough, congestion. Now coughing up yellowish colored mucus. He did COVID test yesterday and his COVID test was positive, so I did video call yesterday with him. He had his most recent COVID-19 booster about 2 weeks ago. Considering his minimal and improving symptoms and recent immunization with COVID-19 vaccine, it was decided that he did not need any antiviral treatment, but I did prescribe him Augmentin, which he has not started it, and as of this morning, the patient started to have some shortness of breath and wheezing and he called ambulance and was brought into emergency room. After he was evaluated, he was admitted to the hospital. When I saw him this evening, he was sitting in the bed, not in any distress, not using any supplemental oxygen. Allergies: TO IODINE AND HAD ANAPHYLACTIC REACTION WITH IT. Medications: List reviewed. Review of Systems: Respiratory: As mentioned above. All other systems reviewed and negative. Past Medical History: Significant for impaired fasting glucose, asthma, hypertension, hyperlipidemia, paroxysmal atrial fibrillation, gastroesophageal reflux disease, diverticulosis, and osteoporosis, coronary artery disease, dilated cardiomyopathy, chronic systolic heart failure, paroxysmal ventricular tachycardia in 2020. Past Surgical History: Sinus surgery, tonsillectomy, left leg varicose vein surgery, back surgery, and fracture of radius and ulna and surgery for that. Social History: Negative for smoking and alcohol use. Family History: Father had lung cancer and prostate cancer. Mother had heart disease and hypertension. Brother with diabetes. Physical Examination: Vital Signs: Temperature 98, pulse 78, respiratory rate 18, blood pressure 195/99, oxygen saturation 96% on room air. Height 6 feet 8 inches, weight 240 pounds. General: Awake, alert, oriented, not in distress. HEENT: Head atraumatic, normocephalic. Conjunctivae nonerythematous. Sclerae white. Mouth, no thrush or edema noted. Ears/Nose, no mass, lesion, discharge noted. Neck: Supple. No JVD, lymph nodes, bruit, thyromegaly noted. Lungs: Bilateral good equal air entry. Clear to auscultation. No rhonchi. No rales. Heart: Normal heart sounds, no murmur or gallop. Abdomen: Soft, bowel sounds normal. No guarding, rigidity, tenderness, mass, hepatosplenomegaly, distention, or bruit noted. Extremities: No leg edema. No calf tenderness. Skin: No rash, ulcer, cellulitis. Lymphatics: No lymph node enlargement in neck, supraclavicular, infraclavicular region. Neuro: No focal neurological deficit. Chest: Unremarkable. External Genitalia: Deferred. Rectal: Deferred. Laboratory Data: White count 5.9, hemoglobin 13, platelets 161. Sodium 141, potassium 3.5, chloride 108, bicarb 25, BUN 22, creatinine 1.19, glucose 104. Liver function tests unremarkable. Troponin 10.3. CRP 3.67. ProBNP 694. Chest x-ray: No acute infiltrate. Bibasilar atelectasis noted. Venous Doppler of both legs. No DVT. Impression: 1. COVID-19 infection. 2. Acute exacerbation of mild persistent asthma. 3. Hypertension. 4. Hyperlipidemia. 5. Paroxysmal atrial fibrillation. 6. Impaired fasting glucose. 7. Osteoporosis. 8. Gastroesophageal reflux disease. 9. Diverticulosis. Plan: Admit patient to hospital for further evaluation and management of this problem. The patient will be admitted to isolation and we will consult Dr. Ma from pulmonary service. We will go ahead and give nebulizer treatment per order, start IV steroid per order. Patient does have some acute bronchitis type of symptoms with cough, congestion, and coughing up colored mucus and empiric antibiotics will be continued per order. For DVT prophylaxis, he takes Eliquis at home for his atrial fibrillation and we will continue that. The patient's blood pressure was elevated. Amlodipine 5 mg p.o. x1 dose was ordered and clonidine was ordered for p.r.n. use. We will monitor blood pressure if necessary, adjust further medication. His other home medications will be continued per order. IV steroid, Solu-Medrol will be given per order. I will see him tomorrow morning for followup. For his gastroesophageal reflux disease, he takes omeprazole and we will continue that. For hypothyroidism, he takes levothyroxine and we will continue that per order as well. We will continue his furosemide as he takes at home and amiodarone as per his home medication list. Details and plan of treatment discussed with him. I will see him tomorrow morning for followup. FELICIA/MODL Voice ID: [id number] ALFONSO
[2023-03-27] MEDS ORDERED: PANTOPRAZOLE 40MG TABLET PO SCH (06:30)
[2023-03-27] MEDS ORDERED: LEVOTHYROXINE SOD 0.075 MG TAB PO SCH (06:30)
[2023-03-27 07:33] LABS: Absolute Lymphocytes (CBC) 0.9 K/uL (0.7-4.9); Hematocrit 35.6 % (39.6-49.0); Lymphocytes % 20.1 % (15.3-44.8); MCV 97.5 fL (80-100); Platelets 161 thou/uL (152-406); RBC Red Blood Cell Count 3.65 M/uL (4.33-5.43)
[2023-03-27 07:48] LABS: Potassium 3.5 mEq/L (3.5-5.1)
[2023-03-27] MEDS ORDERED: CEFTRIAXONE 1,000 MG in NA CHLORIDE 0.9% 50 ML IVPB SCH (09:00)
[2023-03-27] MEDS ORDERED: AMIODARONE HCL 200 MG TAB PO SCH (09:00)
[2023-03-27] MEDS ORDERED: FUROSEMIDE 40 MG TABLET PO SCH (09:00)
[2023-03-27] MEDS: FAMOTIDINE 20 MG/2 ML VIAL IV SCH (10:33)
--- NOTE | 2023-03-27 11:58 | EKG ---
Test Date: 2023-03-26 Test Time: 13:24:30 Post Anesthesia Care Unit Nurse: CARLYLE MEASUREMENT RESULTS: Intervals: Rate: 60 CT: 246 QRSD: 170 QT: 530 QTc: 530 [place]: P: 89 CT: 246 QRS: -20 T: 85 INTERPRETIVE STATEMENTS: Sinus rhythm with 1st degree AV block Left bundle branch block Abnormal ECG Compared to ECG 12/22/2020 06:58:03 No significant changes Electronically Signed On 03-27-23 11:55:44 CDT by Martin Novak
[2023-03-27] MEDS ORDERED: ATORVASTATIN 80 MG TAB PO SCH (21:00)
--- NOTE | 2023-03-28 08:46 | DS ---
Date of Discharge: 03/27/2023 Disposition: Discharged to go home. Physical Examination: HEENT: Unremarkable. Lungs: Clear to auscultation. Heart: Sounds normal. Abdomen: Soft. Bowel sounds normal. No guarding, rigidity, tenderness, distention. Extremities: No leg edema. Hospital Course: A 77-year-old pleasant male patient who came into emergency room complaining of jluis rtness of breath, cough, congestion, wheezing. Please see dictated H and P for more information. Brendon cordova was recently diagnosed on outpatient basis as having COVID-19 infection and in fact he did rece terell his last booster about 2 weeks prior to the diagnosis of COVID. He was started on Augmentin for bronchitis type of symptoms as he was coughing up some colored mucus. He has not had a chance to sto p and after he was evaluated in the ER, he was admitted to the hospital. Chest x-ray did not show an y pneumonia, but showed bibasilar atelectasis. He was started on IV steroid, which is Solu-Medrol as well as empiric antibiotic ceftriaxone was started. He has maintained adequate oxygenation on room air around 96% and this morning when I saw him, he was feeling much better. No complaints reported a t all and patient was discharged to go home in stable condition with following discharge medication a nd instruction. Patient's blood pressure was elevated during this hospitalization with systolic bloo d pressure 170-180 and was started on amlodipine for blood pressure control. Final Diagnoses: 1.COVID-19 infection. 2.Acute exacerbation of mild persistent asthma. 3.Acute bronchitis. 4.Hypertension. 5.Hyperlipidemia. 6.Paroxysmal atrial fibrillation. 7.Impaired fasting glucose. 8.Osteoporosis. 9.Gastroesophageal reflux disease. 10.Diverticulosis. 11.Coronary artery disease. Discharge Medications And Instructions: 1.Continue all prior home medications including antibiotic, which was prescribed just a day prior to this admission. 2.Take following new medication: Amlodipine 5 mg, take 1 tablet by mouth daily in morning and predn isone 10 mg, patient to take 3 tablets daily for 3 days, then 2 tablets daily for 3 days, then 1 tabl et daily for 3 days, then stop. 3.Follow up at my office in 3 weeks. FELICIA/MODL Voice ID: [id number] Report ID: [id number]
[2023-03-28 15:13] VITALS: BP 170/91; TEMP 98; O2SAT 96; BMI 26.4
== END 2023-03-27 14:00 | disposition home or self-care (01) ==
LOC: ER 12:42 → INTOOBSV 13:18 → ERHOLD 13:18 → 4TH 17:23
PROVIDERS: ADMIT Internal Medicine; ATTEND Internal Medicine
DX: U07.1 COVID-19 (principal); J45.31 Mild persistent asthma with (acute) exacerbation; J20.9 Acute bronchitis, unspecified; I25.10 Atherosclerotic heart disease of native coronary artery without angina pectoris; I48.0 Paroxysmal atrial fibrillation; I10 Essential (primary) hypertension; E78.5 Hyperlipidemia, unspecified; R73.01 Impaired fasting glucose; M81.0 Age-related osteoporosis without current pathological fracture; K21.9 Gastro-esophageal reflux disease without esophagitis; K57.90 Diverticulosis of intestine, part unspecified, without perforation or abscess without bleeding; E03.9 Hypothyroidism, unspecified; Z79.890 Hormone replacement therapy
CPT/HCPCS: 93005; 87040 ×2; 85025 ×2; 80048 ×2; 36415; 83735; 85610; 80076; 83605; 84484 ×2; 83880 ×2; 86140; 71045; 93970; 94760 ×3; 96375; 96374; 99285; J7614; J7050; J7040; J2920 ×3; J0696 ×2; G0378

== ENCOUNTER 2023-11-19 00:35 | Emergency (ER) | payer OTHER ==
[2023-11-19] MEDS ORDERED: LACTULOSE 20 GM/30 ML UCUP ONE (02:00)
[2023-11-19] MEDS ORDERED: TRAMADOL HCL 50 MG TAB ONE (02:18)
[2023-11-19] MEDS ORDERED: ONDANSETRON 4 MG (ODT) TAB ONE ×2 (02:18→02:22)
[2023-11-19] MEDS ORDERED: PROMETHAZINE 25 MG TABLET ONE (04:10)
[2023-11-19] MEDS ORDERED: METOCLOPRAMIDE 5 MG TAB ONE (04:10)
[2023-11-19] MEDS ORDERED: MAGNESIUM CITRATE 300 ML BOT ONE (04:11)
--- NOTE | 2023-11-19 06:40 | ER ---
Nurse's Notes [facility] Name: Felipe Ross Age: 78 yrs Sex: Male : 1945 Arrival Date: 11/19/2023 Time: 00:35 Bed 17 Private MD: Kenny Lora C Diagnosis: Constipation;Low transit constipation, acute proctitis, right adrenal adenoma as incidental finding, right pulmonary nodule Presentation: 11/18 01:22 Chief complaint: Patient states: Has not had a BM since Saturday. Pt reports rectal ss pain, but had a BM while waiting in ER lobby and feels better, but still feels he has more stool he needs to pass. Coronavirus screen: Client denies travel out of the [place] in the last 14 days. Ebola Screen: Patient denies exposure to infectious person. Patient denies travel to an Ebola-affected area in the 21 days before illness onset. Initial Sepsis Screen: Does the patient meet any 2 criteria? No. Patient's initial sepsis screen is negative. Does the patient have a suspected source of infection? No. Patient's initial sepsis screen is negative. Risk Assessment: Do you want to hurt yourself or someone else? Patient reports no desire to harm self or others. Onset of symptoms was November 19, 2023. 01:22 Method Of Arrival: Wheelchair ss 01:22 Acuity: SYDNEE 3 ss Triage Assessment: :23 General: Appears in no apparent distress. comfortable, Behavior is calm, cooperative. ss Pain: Complains of pain in rectal Pain currently is 6 out of 10 on a pain scale. Neuro: Level of Consciousness is awake, alert, obeys commands, Oriented to person, place, time, situation. Respiratory: Respiratory effort is even, unlabored. GI: Stools are reported to be constipated. Last BM was November 16, 2023. Historical: - Allergies: : No Known Allergies; ss - PMHx: : Asthma; Atrial Fib; Chronic back/leg pain; herniated discs; Hypertension; Left atrium ss enlargement; Mitral Valve Regurgitation; - Immunization history:: Client reports receiving the 2nd dose of the Covid vaccine. - Infectious Disease History:: Denies. - Social history:: Smoking status: Patient denies any tobacco usage or history of. - Family history:: not pertinent. Screenin:[facility] ED Fall Risk Assessment (Adult) History of falling in the last 3 months, kd3 including since admission No falls in past 3 months (0 pts) Confusion or Disorientation No (0 pts) Intoxicated or Sedated No (0 pts) Impaired Gait No (0 pts) Mobility Assist Device Used No (0 pt) Altered Elimination No (0 pt) Score/Fall Risk Level 0 - 2 = Low Risk Oriented to surroundings. Abuse screen: Denies threats or abuse. Denies injuries from another. Nutritional screening: No deficits noted. Tuberculosis screening: No symptoms or risk factors identified. Assessment: 02:06 General: Appears uncomfortable, Behavior is calm, cooperative. General: Pt reports kd3 having one bowl movement in the lobby while waiting on a room. Pt still feels like he needs to have a BM. Pt medicated. Pt is not connected to continuous monitoring to allow the patient to go to the restroom freely. . Pain: Complains of pain in abdomen. Neuro: Level of Consciousness is awake, alert, obeys commands, Oriented to person, place, time, situation. Respiratory: Airway is patent Trachea midline Respiratory effort is even, unlabored, Respiratory pattern is regular, symmetrical. 02:09 GI: Bowel sounds present X 4 quads. Abdomen is tender to palpation in right lower kd3 quadrant and left lower quadrant. 03:52 Reassessment: Patient and/or family updated on plan of care and expected duration. Pain kd3 level reassessed. Patient is alert, oriented x 3, equal unlabored respirations, skin warm/dry/pink. Patient states symptoms have not improved. 04:31 General: PT is independently ambulatory to the restroom with his cane. . kd3 04:44 General: Pt reports that astorga still has not had a bowl movement. . kd3 Vital Signs: 01:23 BP 145 / 79; Pulse 65; Resp 16; Temp 97.6(O); Pulse Ox 98% ; Weight 104.33 kg; Height 6 ss ft. 8 in. ; Pain 6/10; 02:06 BP 174 / 78; Pulse 74; Resp 16; Pulse Ox 98% on R/A; kd3 03:52 BP 152 / 77; Pulse 84; Resp 19; Pulse Ox 99% on R/A; kd3 06:03 BP 152 / 77; Pulse 77; Resp 19; Pulse Ox 94% on R/A; kd3 01:23 Body Mass Index 25.27 (104.33 kg, 203.2 cm) ss 01:23 Pain Scale: Adult ss [place] Coma Score: 06:45 Eye Response: spontaneous(4). Motor Response: obeys commands(6). Verbal Response: sp4 oriented(5). Total: 15. ED Course: 00:35 Patient arrived in ED. mr 00:36 Kenny Lora MD is Private Physician. mr 00:48 Jarek Dash MD is Attending Physician. sp4 01:23 Triage completed. ss 01:23 Arm band placed on right wrist. ss 01:45 Abdomen with Erect XRAY In Process Unspecified. EDMS 01:56 Kelly Crawford, KWAN is Primary Nurse. kd3 02:09 Patient has correct armband on for positive identification. Placed in gown. Bed in low kd3 position. Provided Education on: Lactulose . 03:06 CT Abd/Pelvis - Without Contrast In Process Unspecified. EDMS 06:38 Gil Day MD is Referral Physician. sp4 06:54 No provider procedures requiring assistance completed. Patient did not have IV access kd3 during this emergency room visit. Administered Medications: 02:06 Drug: Lactulose PO 30 grams 45 ml PO once Volume: 45 ml; Route: PO; kd3 02:24 Drug: traMADol PO 100 mg PO once Route: PO; kd3 02:24 Drug: Ondansetron PO 4 mg PO once Route: PO; kd3 04:16 Drug: Magnesium Citrate PO Liquid 300 ml PO once Route: PO; kd3 04:16 Drug: MetoCLOPramide PO 10 mg PO once Route: PO; kd3 04:16 Drug: Promethazine PO 25 mg PO once Route: PO; kd3 Medication: 02:09 VIS not applicable for this client. kd3 Outcome: 06:39 Discharge ordered by . sp4 06:55 Discharged to home ambulatory, kd3 06:55 Condition: stable 06:55 Discharge instructions given to patient, family, Instructed on discharge instructions, follow up and referral plans. medication usage, Demonstrated understanding of instructions, follow-up care, medications, Prescriptions given X 3, 06:55 Patient left the ED. kd3 Signatures: Dispatcher [employer] EDND Madelyn Vogel, Connor Reg Ramila Cottoby, RN RN ss Kelly Crawford, RN RN kd3 Jarek Dash MD MD sp4
--- NOTE | 2023-11-19 06:40 | EDPHYS ---
Physician Documentation [facility] Name: Felipe Ross Age: 78 yrs Sex: Male : 1945 Arrival Date: 11/19/2023 Time: 00:35 Bed 17 Private MD: Kenny Lora C ED Physician Jarek Dash HPI: 11/18 00:49 This 78 yrs old Male presents to ER via Unassigned with complaints of sp4 Constipation. 06:45 78-year-old male presents with complaint of moderate to severe constipation for the sp4 past 10 days associated with rectal pain.. Historical: - Allergies: 01:23 No Known Allergies; ss - PMHx: :23 Asthma; Atrial Fib; Chronic back/leg pain; herniated discs; Hypertension; Left atrium ss enlargement; Mitral Valve Regurgitation; - Immunization history:: Client reports receiving the 2nd dose of the Covid vaccine. - Infectious Disease History:: Denies. - Social history:: Smoking status: Patient denies any tobacco usage or history of. - Family history:: not pertinent. ROS: 06:45 Constitutional: Negative for fever, chills, and weight loss, positive constipation sp4 positive for rectal pain positive nausea Eyes: Negative for injury, pain, redness, and discharge, ENT: Negative for injury, pain, and discharge, Neck: Negative for injury, pain, and swelling, 06:45 All other systems are negative, Exam: 06:45 Constitutional: This is a well developed, well nourished patient who is awake, alert, sp4 and in no acute distress. Head/Face: Normocephalic, atraumatic. Eyes: Pupils equal round and reactive to light, extra-ocular motions intact. Lids and lashes normal. Conjunctiva and sclera are not injected. Cornea within normal limits. Periorbital areas with no swelling, redness, or edema. ENT: Nares patent. No nasal discharge, no septal abnormalities noted. Tympanic membranes are normal and external auditory canals are clear. Oropharynx with no redness, swelling, or masses, exudates, or evidence of obstruction, uvula midline. Mucous membranes moist. Neck: Trachea midline, no thyromegaly or masses palpated, and no cervical lymphadenopathy. Supple, full range of motion without nuchal rigidity, or vertebral point tenderness. Chest/axilla: Normal chest wall appearance and motion. Nontender with no deformity. No lesions are appreciated. Cardiovascular: Regular rate and rhythm with a normal S1 and S2. No gallops, murmurs, or rubs. Normal PMI, no JVD. No pulse deficits. Respiratory: Lungs have equal breath sounds bilaterally, clear to auscultation and percussion. No rales, rhonchi or wheezes noted. No increased work of breathing, no retractions or nasal flaring. Abdomen/GI: Soft, with normal bowel sounds. No distension or tympany. No guarding or rebound. No evidence of tenderness throughout. Back: No spinal tenderness. No costovertebral tenderness. Male : Normal genitalia with no discharge or lesions. Negative digital rectal exam, no blood, no melena, no rectal mass, normal sphincter tone, no fecal impaction Skin: Warm, dry with normal turgor. Normal color with no rashes, no lesions, and no evidence of cellulitis. MS/ Extremity: Pulses equal, no cyanosis. Neurovascular intact. Full, normal range of motion. Neuro: Awake and alert, GCS 15, oriented to person, place, time, and situation. Cranial nerves II-XII grossly intact. Motor strength 5/5 in all extremities. Sensory grossly intact. Psych: Awake, alert, with orientation to person, place and time. Behavior, mood, and affect are within normal limits Vital Signs: 01:23 BP 145 / 79; Pulse 65; Resp 16; Temp 97.6(O); Pulse Ox 98% ; Weight 104.33 kg; Height 6 ss ft. 8 in. ; Pain 6/10; 02:06 BP 174 / 78; Pulse 74; Resp 16; Pulse Ox 98% on R/A; kd3 03:52 BP 152 / 77; Pulse 84; Resp 19; Pulse Ox 99% on R/A; kd3 06:03 BP 152 / 77; Pulse 77; Resp 19; Pulse Ox 94% on R/A; kd3 01:23 Body Mass Index 25.27 (104.33 kg, 203.2 cm) ss 01:23 Pain Scale: Adult ss [place] Coma Score: 06:45 Eye Response: spontaneous(4). Motor Response: obeys commands(6). Verbal Response: sp4 oriented(5). Total: 15. MDM: 01:00 Patient medically screened. sp4 04:08 ED course: EXAM DESCRIPTION: Abdomen W Erect CLINICAL HISTORY: CONSTIPATION COMPARISON: sp4 None TECHNIQUE: 4 frontal views of the abdomen. FINDINGS: Nonspecific bowel gas pattern. Large colonic stool burden. No free air. No pathologic calcifications. Degenerative changes of visualized spine. Severe degenerative scoliosis of the thoracolumbar spine. Minimal atelectatic changes in the lung bases. IMPRESSION: Nonspecific bowel gas pattern. Large colonic stool burden.. 06:27 ED course: EXAM DESCRIPTION: Abdomen Pelvis Wo Contrast RadLex: CTABDOMEN PELVIS sp4 WITHOUT IV CONTRAST CLINICAL HISTORY: 78 years Male; ABD PAIN; NO CONTRAST Bed Name: 17 TECHNIQUE: CT of the abdomen and pelvis without contrast. All CT scans at this facility use dose modulation, iterative reconstruction, and/or weight based dosing when appropriate to reduce radiation dose to as low as reasonably achievable. COMPARISON: CT abdomen pelvis 08/22/2020 FINDINGS: Lower thorax: Bibasilar scarring versus atelectasis. 5 mm pulmonary nodule in the right lower lobe (series 201, image 11). Abdomen: Stomach:Within normal limits Liver:No focal lesions. No intrahepatic ductal distention. Gallbladder:Mildly distended. Pancreas:Within normal limits Spleen:Within normal limits Right kidney:No hydronephrosis. No renal or ureteral calculi. Renal cysts noted with dominant inferior pole exophytic cyst measuring 4.7 cm. Left kidney:No hydronephrosis. No renal or ureteral calculi. Renal cysts noted. Adrenal glands:2.4 cm right adrenal lesion with attenuation of 19HU. Vascular structures:Atherosclerosis of the abdominal aorta and major branches. Lymph nodes:No lymphadenopathy by size criteria Pelvis: Small bowel:No significant distention. Appendix:Not visualized. No pericecal inflammatory changes. Colon: Large colonic stool burden. Circumferential wall thickening of the rectum with stranding and edema in the perirectal fat. Peritoneum: No free intraperitoneal fluid or air. Bones: No acute bone findings. Degenerative changes of the visualized spine. Chronic appearing anterior compression deformity of the L5 vertebral body. Bladder: Unremarkable. Reproductive organs: No acute findings. Note that evaluation of the bowel and solid organs is somewhat limited due to lack of intravenous and oral contrast. IMPRESSION: 1. Circumferential wall thickening of the rectum with stranding and edema in the perirectal fat, can be seen in setting of proctitis. Consider colonoscopy following acute phase of disease to exclude neoplastic process. 2. Large colonic stool burden. 3. Right adrenal mass measuring 2.4 cm, probable benign adenoma. Recommend nonemergent adrenal washout CT or chemical shift MRI. 4. 5 mm pulmonary nodule in the right lower lobe. Per Fleischner Society Guidelines, no routine follow-up imaging is recommended. These guidelines do not apply to immunocompromised patients and patients with cancer. Follow up in patients with significant comorbidities as clinically warranted. Electronically signed by: West Salas MD 11/19/2023 06:13 AM. 06:45 Differential Diagnosis Acute constipation, acute fecal impaction, bowel obstruction. sp4 Data reviewed: vital signs, nurses notes, radiologic studies, CT scan, plain films. Consideration of Admission/Observation Escalation of care including admission/observation considered. ED course: Patient has no signs of obstructed bowel. Positive for signs of proctitis. Advised to stay home and wait for mag citrate to work. Magnesium citrate administered in ER. Incidental finding of right adrenal mass, advised to see primary care physician for nonemergent dedicated CT. nonemergent finding of pulmonary nodule, no further recommendations. Patient at this time stable for discharge home. Will prescribe GoLytely in case magnesium citrate does not work.. 11/18 00:57 Order name: Abdomen with Erect XRAY sp4 11/18 02:12 Order name: CT Abd/Pelvis - Without Contrast sp4 Administered Medications: 02:06 Drug: Lactulose PO 30 grams 45 ml PO once Volume: 45 ml; Route: PO; kd3 02:24 Drug: traMADol PO 100 mg PO once Route: PO; kd3 02:24 Drug: Ondansetron PO 4 mg PO once Route: PO; kd3 04:16 Drug: Magnesium Citrate PO Liquid 300 ml PO once Route: PO; kd3 04:16 Drug: MetoCLOPramide PO 10 mg PO once Route: PO; kd3 04:16 Drug: Promethazine PO 25 mg PO once Route: PO; kd3 Disposition Summary: 11/19/23 06:39 Discharge Ordered Notes: Location: Home sp4 Problem: new sp4 Symptoms: have improved sp4 Condition: Stable sp4 Diagnosis - Constipation sp4 - Low transit constipation, acute proctitis, right adrenal adenoma as incidental sp4 finding, right pulmonary nodule Followup: sp4 - With: Gil Day MD - When: 2 - 3 days - Reason: Recheck today's complaints Discharge Instructions: - Discharge Summary Sheet sp4 - Constipation, Adult, [id number] sp4 Forms: - Patient Portal Instructions sp4 Prescriptions: - Elida 236-22.74-6.74 -5.86 gram Oral Recon Soln - take 20 milliliter ORAL route as directed Dispense one Jug for reconstitution; sp4 3000 milliliter; Refills: 0, Product Selection Permitted - Tramadol 50 mg Oral tablet - take 1 tablet ORAL route every 8 hours as needed; 20 tablet; Refills: 0, sp4 Product Selection Permitted - ondansetron 8 mg Oral Tablet,disintegrating - take 1 tablet ORAL route every 8 hours PRN nausea; 30 tablet; Refills: 0, sp4 Product Selection Permitted Signatures: Dispatcher [employer] Kylie Cooper, RN RN Kelly Rendon RN RN kd3 Jarek Dash MD MD sp4
[2023-11-19 07:09] VITALS: BP 152/77; TEMP 97.6; O2SAT 94
--- NOTE | 2023-11-19 10:24 | RAD REPORT ---
EXAM DESCRIPTION: CT - Abdomen Pelvis Wo Contrast - 11/19/2023 7:03 am CLINICAL HISTORY: 78 years Male; ABD PAIN; NO CONTRAST Bed Name: 17 TECHNIQUE: CT of the abdomen and pelvis without contrast. All CT scans at this facility use dose modulation, iterative reconstruction, and/or weight based dosi ng when appropriate to reduce radiation dose to as low as reasonably achievable. COMPARISON: CT abdomen pelvis 08/22/2020 FINDINGS: Lower thorax: Bibasilar scarring versus atelectasis. 5 mm pulmonary nodule in the right lower lobe (series 201, image 11). Abdomen: Stomach: Within normal limits Liver: No focal lesions. No intrahepatic ductal distention. Gallbladder: Mildly distended. Pancreas: Within normal limits Spleen: Within normal limits Right kidney: No hydronephrosis. No renal or ureteral calculi. Renal cysts noted with dominant inferi or pole exophytic cyst measuring 4.7 cm. Left kidney: No hydronephrosis. No renal or ureteral calculi. Renal cysts noted. Adrenal glands: 2.4 cm right adrenal lesion with attenuation of 19HU. Vascular structures: Atherosclerosis of the abdominal aorta and major branches. Lymph nodes: No lymphadenopathy by size criteria Pelvis: Small bowel: No significant distention. Appendix: Not visualized. No pericecal inflammatory changes. Colon: Large colonic stool burden. Circumferential wall thickening of the rectum with stranding and e karen in the perirectal fat. Peritoneum: No free intraperitoneal fluid or air. Bones: No acute bone findings. Degenerative changes of the visualized spine. Chronic appearing anteri or compression deformity of the L5 vertebral body. Bladder: Unremarkable. Reproductive organs: No acute findings. Note that evaluation of the bowel and solid organs is somewhat limited due to lack of intravenous and oral contrast. IMPRESSION: 1. Circumferential wall thickening of the rectum with stranding and edema in the perir ectal fat, can be seen in setting of proctitis. Consider colonoscopy following acute phase of disease to exclude neoplastic process. 2. Large colonic stool burden. 3. Right adrenal mass measuring 2.4 cm, probable benign adenoma. Recommend nonemergent adrenal wash out CT or chemical shift MRI. 4. 5 mm pulmonary nodule in the right lower lobe. Per Fleischner Society Guidelines, no routine fol low-up imaging is recommended. These guidelines do not apply to immunocompromised patients and patien ts with cancer. Follow up in patients with significant comorbidities as clinically warranted. Electronically signed by: West Salas MD 11/19/2023 06:13 AM CDT RP Z9 Due to temporary technical issues with the PACS/Fluency reporting system, reports are being signed by the in house radiologists without review as a courtesy to insure prompt reporting. The interpreting radiologist is fully responsible for the content of the report.
--- NOTE | 2023-11-19 10:26 | RAD REPORT ---
EXAM DESCRIPTION: RAD - Abdomen W Erect - 11/19/2023 1:43 am CLINICAL HISTORY: CONSTIPATION COMPARISON: None TECHNIQUE: 4 frontal views of the abdomen. FINDINGS: Nonspecific bowel gas pattern. Large colonic stool burden. No free air. No pathologic calcifications. Degenerative changes of visualized spine. Severe degenerative scoliosis of the thoracolumbar spine. Minimal atelectatic changes in the lung bases. IMPRESSION: Nonspecific bowel gas pattern. Large colonic stool burden. Electronically signed by: West Salas MD 11/19/2023 03:26 AM CDT Z9 Due to temporary technical issues with the PACS/Fluency reporting system, reports are being signed by the in house radiologists without review as a courtesy to insure prompt reporting. The interpreting radiologist is fully responsible for the content of the report.
== END 2023-11-19 06:55 | disposition home or self-care (01) ==
LOC: ER 00:35
DX: K59.01 Slow transit constipation (principal); K62.89 Other specified diseases of anus and rectum; D35.01 Benign neoplasm of right adrenal gland; R91.1 Solitary pulmonary nodule
CPT/HCPCS: 74176; 74019; Q0169; Q0162

== ENCOUNTER 2024-08-20 14:59 | Inpatient (IN) | payer OTHER ==
--- NOTE | 2024-08-20 16:11 | RAD REPORT ---
EXAMINATION: CTA CHEST PE CLINICAL INDICATION: Chest pain TECHNIQUE: 100 cc 370 Isovue administered intravenously. This examination was performed according to an angiographic protocol with 3D post-processing. This involves 3D reconstructions, MIPs, volume rendered images and/or shaded surface rendering. One or more of the following dose reduction techniqu es were used: Automated exposure control, adjustment of the mA and/or kV according to patient size, and/or iterative reconstruction. Unless otherwise specified, incidental findings do not require dedic ated imaging follow-up. [id number]. COMPARISON: 2019 FINDINGS: A pulmonary embolus is not seen. An aortic aneurysm not noted. No pleural effusion. No pericardial effusion. 6 mm right lower lobe nodule mildly increased in size. Mild patchy right lower lobe opacities. Probable left renal parapelvic cyst incompletely evaluated on this exam IMPRESSION: No evidence of a pulmonary embolism Mild patchy right lower lobe opacities may indicate a mild pneumonia 6 mm right lower lobe nodule mildly increased in size from prior exam probably benign. Per Fleischner recommendations CT chest in 12 months should be obtained
--- NOTE | 2024-08-20 16:25 | RAD REPORT ---
Procedure: Chest Single View HISTORY: Chest pain COMPARISON: 2022 FINDINGS: Lungs are hyperaerated. Mild patchy right lower lobe opacity No significant pleural effusion noted. The heart is mildly enlarged. IMPRESSION: Mild patchy right lower lobe opacity may indicate a mild pneumonia
[2024-08-20 16:27] LABS: Absolute Basophils 0.1 K/uL (0-0.5); Absolute Eosinophils 0.4 K/uL (0-0.5); Absolute Monocytes 0.6 K/uL (0.1-1.3); Absolute Neutrophil 4.6 K/uL (1.8-8.0); Basophils % 0.9 % (0-1.3); Eosinophils % 5.4 % (0-4.4); Hematocrit 38.4 % (39.6-49.0); Lymphocytes % 25.8 % (15.3-44.8); MCH 32.7 pg (27.0-35.0); MPV 7.5 fL (7.6-11.3); Monocytes % 7.7 % (3.3-12.3); Neutrophils % 60.2 % (41.7-73.7); Nucleated Red Blood Cells % 0.1 % (0-0); Platelets 222 thou/uL (152-406); RBC Red Blood Cell Count 3.99 M/uL (4.33-5.43); Red Cell Distribution Width 14.2 % (12.1-15.2)
[2024-08-20 16:30] LABS: Anion Gap 6.6 mEq/L (5.0-15.0); Potassium 3.6 mEq/L (3.5-5.1); Troponin High Sensitivity 7.4 pg/mL (<58.9)
--- NOTE | 2024-08-20 16:37 | ER ---
Nurse's Notes [facility] Name: Felipe Ross Age: 78 yrs Sex: Male : 1945 Arrival Date: 08/20/2024 Time: 14:59 Bed 7 Private MD: Diagnosis: Unspecified bacterial pneumonia Presentation: 08/20 17:40 Chief complaint: Patient states: I started having chest pain that radiated to my back jb4 last Saturday with some shortness of breath. Coronavirus screen: At this time, the client does not indicate any symptoms associated with coronavirus-19. Ebola Screen: No symptoms or risks identified at this time. Initial Sepsis Screen: Does the patient meet any 2 criteria? No. Patient's initial sepsis screen is negative. Does the patient have a suspected source of infection? No. Patient's initial sepsis screen is negative. Risk Assessment: Do you want to hurt yourself or someone else? Patient reports no desire to harm self or others. Onset of symptoms was August 14, 2024. Transition of care: patient was not received from another setting of care. 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 - Infectious Disease History:: Denies. - Social history:: Smoking status: Patient denies any tobacco usage or history of. Screenin:46 [facility] ED Fall Risk Assessment (Adult) History of falling in the last 3 months, jb4 including since admission No falls in past 3 months (0 pts) Confusion or Disorientation No (0 pts) Intoxicated or Sedated No (0 pts) Impaired Gait No (0 pts) Mobility Assist Device Used No (0 pt) Altered Elimination No (0 pt) Score/Fall Risk Level 0 - 2 = Low Risk Oriented to surroundings, Maintained a safe environment. Abuse screen: Denies threats or abuse. Nutritional screening: No deficits noted. Tuberculosis screening: No symptoms or risk factors identified. Assessment: 17:46 General: Appears in no apparent distress. comfortable. Pain: Complains of pain in chest jb4 Pain radiates to back Pain currently is 0 out of 10 on a pain scale. Neuro: Level of Consciousness is awake, alert, obeys commands, Oriented to person, place, time, situation. Cardiovascular: Patient's skin is warm and dry. Respiratory: Airway is patent Respiratory effort is even, unlabored, Respiratory pattern is regular, symmetrical. Derm: Skin is intact, Skin is pink, warm \T\ dry. Musculoskeletal: Circulation, motion, and sensation intact. Range of motion: intact in all extremities. 18:37 Reassessment: Patient appears in no apparent distress at this time. No changes from ld1 previously documented assessment. Patient and/or family updated on plan of care and expected duration. Pain level reassessed. Patient is alert, oriented x 3, equal unlabored respirations, skin warm/dry/pink. 19:30 Reassessment: Patient appears in no apparent distress at this time. Patient and/or jb4 family updated on plan of care and expected duration. Pain level reassessed. Patient is alert, oriented x 3, equal unlabored respirations, skin warm/dry/pink. 20:30 Reassessment: Patient appears in no apparent distress at this time. Patient and/or jb4 family updated on plan of care and expected duration. Pain level reassessed. Patient is alert, oriented x 3, equal unlabored respirations, skin warm/dry/pink. Vital Signs: 17:17 BP 132 / 118; ec2 17:17 Pulse 62; Pulse Ox 100% ; ec2 17:40 BP 120 / 65; Pulse 60; Resp 18; Temp 97.7(O); Pulse Ox 100% on R/A; Weight 104.33 kg jb4 (R); Height 6 ft. 8 in. (R); 18:37 BP 152 / 71; Pulse 55; Resp 18; Pulse Ox 99% on R/A; ld1 19:45 BP 161 / 76; Pulse 56; Resp 16; Pulse Ox 99% on R/A; jb4 20:15 BP 159 / 73; Pulse 55; Resp 16; Pulse Ox 98% ; jb4 17:40 Body Mass Index 25.27 (104.33 kg, 203.2 cm) jb4 ED Course: 15:02 Patient arrived in ED. al6 15:07 Edgard Flores MD is Attending Physician. ec2 15:38 Radiology exam delayed due to lab results not completed at this time. (BUN/Creatinine) nj IV insertion attempt and/or patient not having appropriate IV at this time. 15:43 XRAY Chest (1 view) In Process Unspecified. EDMS 15:56 Initial lab(s) drawn, by me, sent to lab. Inserted saline lock: 22 gauge in left aa5 antecubital area, using aseptic technique. Blood collected. Flushed with 10 mL NS. 15:58 Chest For PE Angio CT In Process Unspecified. EDMS 16:37 Kenny Lora MD is Hospitalizing Provider. ec2 17:45 Triage completed. jb4 17:45 Arm band placed on right wrist. jb4 17:46 No provider procedures requiring assistance completed. Patient admitted, IV remains in jb4 place. 17:46 Patient has correct armband on for positive identification. Bed in low position. Call jb4 light in reach. Side rails up X 1. Provided Education on: need for admit. Client placed on continuous cardiac and pulse oximetry monitoring. NIBP monitoring applied. clinical research monitor on. Pulse ox on. 18:36 Amparo Lopez, KWAN is Primary Nurse. ld1 Administered Medications: 18:36 Drug: Rocephin IV 1 grams IV at calculated rate once; Given slow IV push per pharmacy ld1 instructions Route: IV; Rate: calculated rate; Site: left antecubital; 18:36 Drug: AZITHromycin IVPB 500 mg IVPB once over 1 hrs; (mix in 250 mL NS) Route: IVPB; ld1 Infused Over: 1 hrs; Site: left antecubital; 18:36 Drug: NS 0.9% IV 1000 ml IV at 1000 ml once; to be given as a bolus over 60 minutes ld1 Route: IV; Rate: 1000 ml; Site: left antecubital; Medication: 17:46 VIS not applicable for this client. jb4 Outcome: 16:37 Decision to Hospitalize by Provider. ec2 20:50 Patient left the ED. jb4 Signatures: Dispatcher [employer] EDMS Yany Flores RN RN aa5 Javier Lee RN RN jb4 Idris Garrett Lauren, KWAN RN ld1 Edgard Flores MD MD ec2 Elvia Leonardo al6
--- NOTE | 2024-08-20 16:37 | EDPHYS ---
Physician Documentation [facility] Name: Felipe Ross Age: 78 yrs Sex: Male : 1945 Arrival Date: 08/20/2024 Time: 14:59 Bed 7 Private MD: ED Physician Edgard Flores HPI: 08/20 16:10 This 78 yrs old Male presents to ER via Unassigned with complaints of Back ec2 Pain, Chest Pain, Breathing Difficulty. 16:10 Patient arrives today for several days of chest pain and back pain. Reports history of ec2 previous A-fib, has a watchman, does not take blood thinners. Patient reports chest pain has been intermittent. Reports also occasional shortness of breath.. Historical: - Allergies: 17:45 No Known Allergies; jb4 - PMHx: 17:45 Asthma; Atrial Fib; Chronic back/leg pain; herniated discs; Hypertension; Left atrium jb4 enlargement; Mitral Valve Regurgitation; - PSHx: 17:45 watchman procedure (Mitral Valve Regurgitation); jb4 - Immunization history:: Adult Immunizations up to date, Pneumococcal vaccine is up to date, Flu vaccine is up to date. - Infectious Disease History:: Denies. - Social history:: Smoking status: Patient denies any tobacco usage or history of. ROS: 16:10 Constitutional: as per hpi ec2 Exam: 16:10 Constitutional: GEN: NAD Head: atraumatic Eyes: EOMI Ears: External ears are ec2 normal. CV: regular rate LUNGS: no respiratory distress ABD: non-distended SKIN: no evidence of rashes MSK: no evidence of trauma Vital Signs: 17:17 BP 132 / 118; ec2 17:17 Pulse 62; Pulse Ox 100% ; ec2 17:40 BP 120 / 65; Pulse 60; Resp 18; Temp 97.7(O); Pulse Ox 100% on R/A; Weight 104.33 kg jb4 (R); Height 6 ft. 8 in. (R); 18:37 BP 152 / 71; Pulse 55; Resp 18; Pulse Ox 99% on R/A; ld1 19:45 BP 161 / 76; Pulse 56; Resp 16; Pulse Ox 99% on R/A; jb4 20:15 BP 159 / 73; Pulse 55; Resp 16; Pulse Ox 98% ; jb4 17:40 Body Mass Index 25.27 (104.33 kg, 203.2 cm) jb4 MDM: 16:10 Data reviewed: vital signs, nurses notes. ED course: Patient arrives today for chest ec2 pain and shortness of breath. Examination yields well-appearing nontoxic and appears otherwise in no acute distress. Will obtain lab work, EKG, PE study. DDx includes costochondritis, ACS, PE.. 16:16 Medical Screening Exam initiated ec2 16:36 ED course: Metabolic profile shows some kidney disease with a creatinine 1.38 and GFR ec2 53. CBC shows minimal anemia, BNP minimally elevated, chest x-ray shows right lower lobe pneumonia. CT scan of the chest shows pneumonia. Will admit the patient for pneumonia, antibiotics.. 08/20 15:07 Order name: Basic Metabolic Panel; Complete Time: 16:36 ec2 08/20 15:07 Order name: CBC with Diff; Complete Time: 16:36 ec2 08/20 15:07 Order name: NT PRO-BNP; Complete Time: 16:36 ec2 08/20 15:07 Order name: PT-INR; Complete Time: 10:35 ec2 08/20 15:07 Order name: Troponin HS; Complete Time: 16:36 ec2 08/20 17:27 Order name: Basic Metabolic Panel EDMO 08/20 17:27 Order name: Basic Metabolic Panel; Complete Time: 10:35 EDMS 08/20 17:27 Order name: CBC with Automated Diff EDMO 08/20 17:27 Order name: CBC with Automated Diff; Complete Time: 10:35 EDMS 08/20 17:27 Order name: Lipid Profile EDMO 08/20 17:27 Order name: Lipid Profile; Complete Time: 10:35 EDMS 08/20 17:27 Order name: Troponin High Sensitivity EDMO 08/20 15:07 Order name: XRAY Chest (1 view); Complete Time: 16:36 ec2 08/20 15:07 Order name: Chest For PE Angio CT; Complete Time: 10:35 ec2 08/20 15:07 Order name: Cardiac monitoring; Complete Time: 17:58 ec2 08/20 15:07 Order name: EKG - Nurse/Tech; Complete Time: 17:58 ec2 08/20 15:07 Order name: IV Saline Lock; Complete Time: 16:05 ec2 08/20 15:07 Order name: Labs collected and sent; Complete Time: 16:05 ec2 08/20 15:07 Order name: O2 Per Protocol; Complete Time: 17:57 ec2 08/20 15:07 Order name: O2 Sat Monitoring; Complete Time: 17:57 ec2 Administered Medications: 18:36 Drug: Rocephin IV 1 grams IV at calculated rate once; Given slow IV push per pharmacy ld1 instructions Route: IV; Rate: calculated rate; Site: left antecubital; 18:36 Drug: AZITHromycin IVPB 500 mg IVPB once over 1 hrs; (mix in 250 mL NS) Route: IVPB; ld1 Infused Over: 1 hrs; Site: left antecubital; 18:36 Drug: NS 0.9% IV 1000 ml IV at 1000 ml once; to be given as a bolus over 60 minutes ld1 Route: IV; Rate: 1000 ml; Site: left antecubital; Disposition Summary: 08/20/24 16:37 Hospitalization Ordered Notes: Hospitalization Status: Inpatient Admission ec2 Provider: Kenny Lora [facility] ([facility]) ec2 Condition: Stable ec2 Problem: new ec2 Symptoms: are unchanged ec2 Bed/Room Type: Standard ec2 Room Assignment: 416(08/20/24 17:30) aa5 Diagnosis - Unspecified bacterial pneumonia ec2 Forms: - Medication Reconciliation Form ec2 - SBAR form ec2 - Leadership Thank You Letter ec2 Signatures: Dispatcher [employer] EDYany King RN RN aa5 Javier Lee RN RN jb4 Amparo Lopez RN RN ld1 Edgard Flores MD MD ec2 Corrections: (The following items were deleted from the chart) 15:07 15:07 BASIC METABOLIC PANEL+C.LAB.BRZ ordered. EDMS EDMS 15:07 15:07 CBC+H.LAB.BRZ ordered. EDMS EDMS 15:07 15:07 PROBNP+C.LAB.BRZ ordered. EDMS EDMS 15:07 15:07 PROTIME (+INR)+COAG.LAB.BRZ ordered. EDMS EDMS 15:07 15:07 Troponin High Sensitivity+C.LAB.BRZ ordered. EDMS EDMS 15:08 15:08 Chest Single View+RAD.RAD.BRZ ordered. EDMS EDMS 15:08 15:08 Chest For PE Angio+CT.RAD.BRZ ordered. EDMS EDMS 17:30 16:37 ec2 aa5
[2024-08-20] MEDS ORDERED: ALBUTEROL 2.5 MG/3 ML NEB SOL NEB PRN (17:23)
[2024-08-20] MEDS ORDERED: ONDANSETRON 4 MG/2 ML VIAL IV PRN (17:23)
[2024-08-20] MEDS ORDERED: AZITHROMYCIN 500 MG INJ IVPB ONE (18:10)
[2024-08-20] MEDS ORDERED: CEFTRIAXONE 1000 MG/VIAL ONE (18:10)
[2024-08-20] MEDS ORDERED: NA CHLORIDE 0.9% 250 ML ONE (18:11)
[2024-08-20] MEDS ORDERED: NA CHLORIDE 0.9% 1,000 ML ONE (18:11)
[2024-08-20 18:56] LABS: PT Prothrombin Time 11.7 SECONDS (10-13.0); Protime INR 1.03
[2024-08-20] MEDS: CEFTRIAXONE 1,000 MG in NA CHLORIDE 0.9% 50 ML IVPB SCH (21:00)
[2024-08-20 21:31] VITALS: BMI 25.2
[2024-08-20 22:13] VITALS: O2SAT 98
[2024-08-21 06:38] LABS: Absolute Basophils 0.1 K/uL (0-0.5); Absolute Eosinophils 0.5 K/uL (0-0.5); Absolute Lymphocytes (CBC) 1.8 K/uL (0.7-4.9); Absolute Monocytes 0.5 K/uL (0.1-1.3); Absolute Neutrophil 4.2 K/uL (1.8-8.0); Basophils % 0.9 % (0-1.3); Hematocrit 33.4 % (39.6-49.0); Hemoglobin 11.5 g/dL (13.6-17.9); Lymphocytes % 24.8 % (15.3-44.8); MCH 33.3 pg (27.0-35.0); MCHC 34.3 g/dL (32.0-36.0); MCV 97.1 fL (80-100); MPV 7.1 fL (7.6-11.3); Monocytes % 7.7 % (3.3-12.3); Neutrophils % 59.6 % (41.7-73.7); Platelets 193 thou/uL (152-406); RBC Red Blood Cell Count 3.44 M/uL (4.33-5.43); Red Cell Distribution Width 14.4 % (12.1-15.2)
[2024-08-21 06:41] LABS: Anion Gap 7.8 mEq/L (5.0-15.0); Potassium 3.8 mEq/L (3.5-5.1); Troponin High Sensitivity 14.5 pg/mL (<58.9)
[2024-08-21] MEDS ORDERED: ALBUTEROL INHALER 200 PUFF/6.7 GM IH PRN (07:15)
[2024-08-21] MEDS ORDERED: ACETAMINOPHEN 500 MG TAB PO PRN (07:22)
[2024-08-21] MEDS: HOME MED 1 EA UNK (Fluticasone Propion/Salmeterol [Advair 250-50 Diskus] Blst.W.Dev) IH SCH (09:00)
[2024-08-21] MEDS: FUROSEMIDE 40 MG TABLET PO SCH (09:00)
[2024-08-21] MEDS: ASPIRIN EC 81 MG TAB PO SCH (09:00)
[2024-08-21] MEDS: METOPROLOL XL 25 MG TAB PO SCH (09:00)
[2024-08-21] MEDS: lisinopriL 5 MG TAB PO SCH (09:00)
[2024-08-21] MEDS ORDERED: APIXABAN 5 MG TABLET PO SCH (09:00)
[2024-08-21] MEDS: AZITHROMYCIN IV 500 MG in NA CHLORIDE 0.9% 250 ML IVPB SCH (09:01)
[2024-08-21] MEDS: MESALAMINE 400 MG CAPSULE.DR PO SCH (09:02)
[2024-08-21] MEDS: AMIODARONE HCL 200 MG TAB PO SCH (09:02)
--- NOTE | 2024-08-21 09:14 | RAD REPORT ---
EXAMINATION: Thoracic Spine Ap/Lat CLINICAL INDICATION: Male, 78 years old. back pain COMPARISON: No prior exam. VIEWS: As above FINDINGS: Compression deformity at the T6 level and mild wedge compression deformity at T8 are similar to the p rior CT. Neither finding is acute. Dextro scoliotic curvature which is partially imaged at the lumbar spine. Scattered mild endplate spurring. Other: n/a IMPRESSION: No acute osseous abnormality. Compression deformities at T6 and T8 are favored chronic.
--- NOTE | 2024-08-21 09:26 | PN ---
Date of Progress Note: 08/21/2024 Subjective: The patient was seen this morning for followup. Denies any chest pain this morning, but complains of pain in his right scapular region with breathing. Objective: Vital Signs: Reviewed. HEENT: Unremarkable. Lungs: Bilateral good equal air entry. Presence of rales noted in the right lower lobe. Not using any accessory muscles of respiration. Heart: Sounds normal. Abdomen: Soft. Bowel sounds normal. No guarding, rigidity, tenderness, distention. Extremities: No leg edema. Laboratory Data: White count 7.10, hemoglobin 11.5, platelets 193. Sodium 143, potassium 3.8, chlor trae 113, bicarb 26, BUN 21, creatinine 1.06, glucose 104. Troponin 14.5. Impression: 1. Pneumonia. 2. Hypertension. 3. Atrial fibrillation, status post Watchman's procedure. 4. Chronic aspirin therapy. Plan: We will go ahead and continue current antibiotic, which is ceftriaxone and azithromycin. The patient does not take any Eliquis since he had Watchman's procedure and he takes aspirin and medicati on list that is in the hospital computer system is not accurate. We will go ahead and encourage darius fitzpatrick. Continue current antibiotic. I will see him tomorrow. I have ordered x-ray of the thoracol umbar spine today and possible discharge to go home over the weekend depending on his condition. FELICIA/MODL Voice ID: [id number] Report ID: [id number]
[2024-08-21] MEDS ORDERED: ALBUTEROL 2.5 MG/3 ML NEB SOL NEB PRN (10:21)
[2024-08-21] MEDS: ATORVASTATIN 80 MG TAB PO SCH (20:40)
[2024-08-22] MEDS: HYDROCODONE/APAP 5/325 MG TAB PO PRN (00:27)
[2024-08-22] MEDS: LEVOTHYROXINE SOD 0.075 MG TAB PO SCH (06:17)
[2024-08-22 09:02] VITALS: BP 134/71
[2024-08-22 09:27] VITALS: TEMP 97.9
--- NOTE | 2024-08-22 11:12 | HP ---
Date of Admission: 08/20/2024 Chief Complaint: Chest pain, back pain. History Of Present Illness: This is a 78-year-old pleasant male patient came into office with his wi fe today and reported that DICTATION ENDS HERE. FELICIA/ASMITA Voice ID: [id number]
--- NOTE | 2024-08-22 12:18 | HP ---
Date of Admission: 08/20/2024 Chief Complaint: Chest pain and back pain. History Of Present Illness: This is a 78-year-old pleasant male patient who came into office today w ith his and reported that 6 days ago, he started to have pain in the center of the lower chest a nd it radiated to his back between scapula. Initially, pain lasted for about 3-4 hours continuously and subsequently he is having intermittent pain for last 6 days now. The patient reported that his p ain gets worse in the back area with bending over as well as taking deep breath causes back pain to g et worse. He is also reporting having some shortness of breath with activity in last few days. Scotty es any fever, chills, cough, congestion, nausea, vomiting, or diarrhea. After I saw him, he was inst ructed to go to the emergency room for further evaluation and details were discussed with the emergen cy room physician and after patient was evaluated all the test results reviewed with the emergency ro om physician and patient was admitted to the hospital with diagnosis of pneumonia. Allergies: IODINE. Medications: List reviewed. Review of Systems: Respiratory: As mentioned above. Cardiovascular: As mentioned above. All other systems reviewed and negative. Past Medical History: Significant for hypothyroidism, impaired fasting glucose, asthma, hypertension , hyperlipidemia, coronary artery disease, chronic systolic heart failure, and his ejection fraction was around 15% in August 2020 and subsequently his ejection fraction improved to 50% to 55% by January of 2021. Past medical history is also significant for paroxysmal atrial fibrillation, ventricular ta chycardia, gastroesophageal reflux disease, Crohn disease, diverticulosis, chronic kidney disease, an emia, osteoporosis. Past Surgical History: Significant for sinus surgery; tonsillectomy; left leg varicose vein surgery in 2021; Watchman procedure December 25, 2023; back surgery; and surgery for left radius and ulna fractur e. Family History: Father had lung cancer and prostate cancer. Mother, hypertension and heart disease. Brother with diabetes. Social History: Negative for smoking and alcohol use. Physical Examination: Vital Signs: Blood pressure was 126/70, pulse 66, temperature 97.9, respiratory rate 16. Weight 239 .2 pounds, height 80 inches. General: Awake, alert, oriented, not in distress. HEENT: Head atraumatic, normocephalic. Conjunctivae nonerythematous. Sclerae white. Mouth, no thr ush or edema noted. Ears/Nose, no mass, lesion, discharge noted. Neck: Supple. No JVD, lymph nodes, bruit, thyromegaly noted. Lungs: Bilateral good equal air entry. Clear to auscultation. No rhonchi. No rales. Heart: Normal heart sounds, no murmur or gallop. Abdomen: Soft, bowel sounds normal. No guarding, rigidity, tenderness, mass, hepatosplenomegaly, dis tention, or bruit noted. Extremities: No leg edema. No calf tenderness. Skin: No rash, ulcer, cellulitis. Lymphatics: No lymph node enlargement in neck, supraclavicular, infraclavicular region. Neuro: No focal neurological deficit. Chest: Unremarkable. External Genitalia: Deferred. Rectal: Deferred. Laboratory Data: WBC 7.6, hemoglobin 13, platelets 222. Sodium 140, potassium 3.6, chloride 108, bi carb 29, BUN 28, creatinine 1.38, glucose 102. ProBNP 615. Troponin 7.4. Chest x-ray shows mild pa tchy right lower lobe infiltrate. CAT scan of the chest per PE protocol was negative for pulmonary e mbolism. It did show 19 mm right adrenal nodule, unchanged from 2017, consistent with adenoma and sh owed right lower lobe pneumonia. Impression: 1. Pneumonia. 2. Coronary artery disease. 3. Chronic systolic heart failure. 4. Paroxysmal atrial fibrillation. 5. Hypertension. 6. Hyperlipidemia. 7. Hypothyroidism. 8. Impaired fasting glucose. 9. Asthma. 10. Chronic kidney disease, stage 3A. Plan: Admit patient to hospital for further evaluation and management of this problem. The patient is appropriate for inpatient and is expected to spend 2 midnights. I have called the radiologist who read the CT scan, chest PE protocol and discussed with him. Obviously, there is no evidence of pul monary embolism, but also wanted to make sure that there is no acute aortic findings and he did revie w the scan and informed me that there is no acute aortic findings like dissection or aneurysm. For p neumonia, we will go ahead and provide appropriate antibiotics and no need for further intervention. For hypertension, we will continue amlodipine per order, monitor blood pressure. If necessary, adju st medication. For his paroxysmal atrial fibrillation, he is on amiodarone 200 mg daily. We will co ntinue that. For coronary artery disease, he takes aspirin 81 mg daily, which we will continue that as well. For hyperlipidemia, we will continue his statin therapy. No need for further intervention. The patient has mild persistent asthma and takes his inhaler regularly. We will continue that. Fo r hypothyroidism, continue levothyroxine per order and no need for further intervention. Total time spent today 80 minutes including performing evaluation and management; communication with the emergency room physician 2 different times, which was before and after evaluation in the emergenc y room; and communication with radiologists. FELICIA/ASMITA Voice ID: [id number]
--- NOTE | 2024-08-23 07:03 | DS ---
Date of Discharge: 08/22/2024 Disposition: Discharged to go home. Physical Examination: HEENT Examination: Unremarkable. Lungs: Clear to auscultation. Heart: Sounds normal. Abdomen: Soft. Bowel sounds normal. No guarding, rigidity, tenderness, distention. Extremities: No leg edema. Discharge Medications And Instructions: Continue all prior home medications. Next, take Augmentin 875 mg 1 tablet by mouth 2 times a day for 1 week, take it with food. Next, follow up at my office next week on Saturday or . Take Tylenol 500 mg 1 tablet and Motrin 200 mg 2 tablets by mouth 2 times a day with food for 1 week. Laboratory Data: Upon admission, sodium 140, potassium 3.6, chloride 108, bicarb 29, BUN 28, creatin ine 1.38, glucose 102. BNP 615. Troponin 7.4, and yesterday sodium 143, potassium 3.8, chloride 113 , bicarb 26, BUN 21, creatinine 1.06, glucose 104. For CBC upon admission, WBC 7.6, hemoglobin 13, p latelets 222, and yesterday WBC 7.1, hemoglobin 11.5, platelets 190. CT scan of the chest per PE protocol was negative for pulmonary embolism. It did show some infiltrat e in the lower lung field and 19 mm right adrenal adenoma, unchanged from 2017, and there is a small 6 mm right lower lobe nodule, slightly increased in size compared to prior scan. So, followup CT sca n in 12 months is recommended. Chest x-ray shows right lower lobe infiltrate. Hospital Course: A -xtcm-baz male patient who came into office with complaints of chest pa in and shortness of breath, and after evaluation at office, he was sent to emergency room for further evaluation, where further testing was completed and the patient was admitted to the hospital with pn eumonia. [place] was ruled out. PE was ruled out. There were no acute aortic findings on the CAT scan. The patient was started on antibiotic which was ceftriaxone and azithromycin, has received 3 doses o f azithromycin 500 mg IV daily, last dose was today, and ceftriaxone per order today. He is feeling much better. Clinically, he is stable for discharge and we will discharge him to go home with oral a ntibiotic as mentioned above. Final Diagnoses: 1. Pneumonia. 2. Mild persistent asthma. 3. Pulmonary nodule, right lower lobe, 6 mm. 4. Hypertension. 5. Hyperlipidemia. 6. Paroxysmal atrial fibrillation. 7. Impaired fasting glucose. 8. Osteoporosis. 9. Gastroesophageal reflux disease. 10. Diverticulosis. Total time spent 40 minutes. FELICIA/MODL Voice ID: [id number] Report ID: [id number]
--- NOTE | 2024-08-24 12:12 | EKG ---
Test Date: 2024-08-20 Test Time: 17:53:49 Computer Drafter: JUANI MEASUREMENT RESULTS: Intervals: Rate: 59 HI: 278 QRSD: 176 QT: 516 QTc: 510 [place]: P: 65 HI: 278 QRS: -1 T: 57 INTERPRETIVE STATEMENTS: Sinus bradycardia with 1st degree AV block Left bundle branch block Abnormal ECG Compared to ECG 03/26/2023 13:24:30 Sinus rhythm no longer present Electronically Signed On 08-24-24 12:03:50 CDT by Roderick Urias
== END 2024-08-22 12:25 | disposition home or self-care (01) | DRG 194 ==
LOC: ER 14:59 → ERHOLD 17:23 → 4TH 20:45
PROVIDERS: ADMIT Internal Medicine; ATTEND Internal Medicine
DX: J15.9 Unspecified bacterial pneumonia (principal); I13.0 Hypertensive heart and chronic kidney disease with heart failure and stage 1 through stage 4 chronic kidney disease, or unspecified chronic kidney disease; I50.22 Chronic systolic (congestive) heart failure; N18.31 Chronic kidney disease, stage 3a; J45.30 Mild persistent asthma, uncomplicated; E03.9 Hypothyroidism, unspecified; E78.5 Hyperlipidemia, unspecified; I48.0 Paroxysmal atrial fibrillation; K21.9 Gastro-esophageal reflux disease without esophagitis; M81.0 Age-related osteoporosis without current pathological fracture; K57.90 Diverticulosis of intestine, part unspecified, without perforation or abscess without bleeding; I25.10 Atherosclerotic heart disease of native coronary artery without angina pectoris; R73.01 Impaired fasting glucose; R91.8 Other nonspecific abnormal finding of lung field; Z79.82 Long term (current) use of aspirin
CPT/HCPCS: 36415; 71045; 71275; 72070; 80048; 80061; 82565; 82947; 83880; 84484; 85025; 85610; 93005; 96374; 96375; 99284; J0696; J7030; J7050; Q9967